=== PATIENT | male | born 1945 | race Caucasian/White ===

== ENCOUNTER → 2016-02-15 17:44 | Outpatient (CLI) | payer MEDICARE, OTHER ==
[2015-12-06 10:06] VITALS: BMI 36.5
[~2016-02-15 17:44] MED LIST: ADVAIR 250/501 DISK INH; AMBIEN10 MG PO; BAYER CHEWABLE81 MG PO; BENICAR40 MG PO; BIAXIN 500 MG500 MG PO; BROVANA15 MCG/2 M INH; BUMEX 1 MG TAB1 MG PO; CARAFATE1 G PO; CELEXA20 MG PO; COLACE100 MG PO; DIOVAN80 MG PO; DUONEB 2.5-0.5 M3 ML UPD; EXFORGE HCT 101 EAC2 PO; FERROUS SULFAT325 MG PO; GABAPENTIN100 MG PO; HYDROCHLOROTH12.5 M1 PO; HYDROCODON-ACE1 EAC7 PO; IPRAT-ALBUT 0.5-3 ML UPD; K-DUR20 MEQ PO; K-TAB10 MEQ PO; LASIX20 MG PO; LIBRAX CAPSULE1 CAP PO; MIRALAX17 GM PO; MUCINEX DM ER1 EAC1 PO; NITRO-DUR0.4 MG SL; NITROSTAT0.4 MG SL; NORVASC10 MG PO; NYSTATIN ORAL SU5 ML PO; OS-CAL500 MG PO; PLAVIX75 MG; PLAVIX75 MG PO; PLETAL100 MG; PREDNISONE20 MG PO; PROCARDIA XL60 MG PO; PROTONIX40 MG; PROTONIX40 MG PO; PULMICORT0.5 MG/21 UPD; REQUIP5 MG PO; REVATIO20 MG PO; SEROQUEL25 MG PO; TRIBENZOR 20-51 EACH PO; TRIBENZOR 40-11 EACH PO; TUSSIONEX 5 ML S5 ML PO; ZOCOR20 MG PO; ZYLOPRIM300 MG PO
[2016-02-15 19:45] LABS: BASOPHILS 0.3 % (0.0-2.0); EOSINOPHILS 2.7 % (0-7); HEMATOCRIT 30.4 % (42.0-54.0); IMMATURE GRANULOCYTES 0.4 % (0-5); LYMPHOCYTES 10.2 % (15-50); MCH 25.1 pg (26.0-34.0); MCHC 29.6 g/dL (31.0-37.0); MCV 84.7 fL (80.0-100.0); MEAN PLATELET VOLUME 9.6 fL (7.4-10.4); MONOCYTES 8.5 % (2-11); NEUTROPHILS 77.9 % (40-80); PLATELET COUNT 243 10x3/uL (130-400); RBC 3.59 10x6/uL (4.20-6.10); RDW 15.4 % (11.5-14.5); WBC 7.5 10x3/uL (4.8-10.8)
[2016-02-15 19:57] LABS: CALCIUM 9.2 mg/dL (8.5-10.1); CARBON DIOXIDE 25.9 mmol/L (21.0-32.0); CREATININE - SERUM 1.4 mg/dL (0.6-1.3); POTASSIUM - SERUM 4.9 mmol/L (3.5-5.1)
== END | disposition home or self-care (01) ==
LOC: D.LABREF 17:44
PROVIDERS: Internal Medicine Interventional Cardiology
DX: I25.119 Atherosclerotic heart disease of native coronary artery with unspecified angina pectoris (principal)

== ENCOUNTER 2016-02-18 08:23 | Outpatient (CLI) | payer MEDICARE, OTHER ==
[~2016-02-18] VITALS: Ht 172.7 cm; Wt 105.9 kg
--- NOTE | ~2016-02-18 | HEMODYNAMI ---
PATIENT:HÉCTOR GRAY MEDICAL RECORD: [id number] : 41 LOCATION:[facility] ADMISSION DATE: 02/18/16 Generatedon:02/18/201614:45 Patient name: HÉCTOR GRAY Patient #: [id number] : 1945 Date of study: 02/18/2016 Page: Of Hemodynamic Procedure Report Patient Data Patient Demographics Procedure consent was obtained First Name: HÉCTOR Gender: Male Last Name: ISAAC : 1945 Middle Initial: GISSELL Age: 71 year(s) Patient #: [id number] Race: SSN: [id number] Additional ID: [id number] Contact details Address: [address] [place] [address] State: [place] City: [place] Zip code: [address] Past Medical History History of disease Date Diagnosis Comments CAD PVD Allergies Allergen Reaction Date Comments Reported Other allergy 12/10/2014 KEFLEX,PROCARDIA Other allergy 11/29/2015 KEFLEX, PROCARDIA Other allergy 12/06/2015 Keflex, Procardia Other allergy 02/18/2016 Keflex, Procardia Admission Admission Data Admission Date: 02/18/2016 Admission Time: 8:23 Arrival Date: 02/18/2016 Arrival Time: 0:00 Insurance Payor: Medicare, Private health insurance Height (in.): 68 BSA: 2.18 (m2) Height (cm.): 172.72 BMI: 35.43 (kg/m2) Weight (lbs.): 233 Weight (kg.): 105.69 Lab Results Lab Result Date: 02/18/2016 Lab Result Time: 0:00 Biochemistry Name Units Result Min Max BUN mg/dl 31 --(----)-* 7 18 Creatinine mg/dl 1.5 --(----)-* 0.6 1.3 CBC Name Units Result Min Max Hemoglobin g/dl 8.9 *-(----)-- 13.5 17.5 Procedure Procedure Types Cath Procedure Diagnostic Procedure [facility] w/Coronaries w/Grafts Procedure Description Procedure Date Procedure Date: 02/18/2016 Procedure Start Time: 14:26 Procedure End Time: 14:44 Procedure Staff Name Function Wayne Gatica MD Performing Physician Yovany Olmedo RT Scrub Carmita Aguilera RN Nurse Reynaldo Bhandari RT Professor Of Religious Studies Grace Leong RT Monitor Procedure Data Cath Procedure Fluoroscopy Diagnostic fluoroscopy Total fluoroscopy dose: 818 dose: 818 mGy mGy Contrast Material Contrast Material Type Amount (ml) Isovue 300 80 Entry Location Entry Primary Successful Side Size Upsize Upsize Entry Closure Succes sful Closure Location (Fr) 1 (Fr) 2 (Fr) Remarks Device Remarks Femoral Right 5 Fr Vascade artery Closure System Estimated blood loss: 10 ml Diagnostic catheters Device Type Used For End Catheter Placement Cordis 5Fr JL 4.0 Left Coronary Catheter (MP) Angiography Cordis 5Fr Pigtail LV Angiography Catheter (MP) Cordis Infinity 5Fr AR 2 SVG Angiography MOD catheter Cordis Infinity 5Fr MPA-2 SVG Angiography catheter Procedure Complications No complications Procedure Medications Medication Administration Route Dosage Oxygen NC 2 l/min Lidocaine 2% added to field 20 Heparin Flush Bag added to field 2 bags (1000units/500ml NS) Benadryl I.V. 50 mg Versed I.V. 1 mg Fentanyl I.V. 50 mcg Fentanyl I.V. 25 mcg Versed I.V. 0.5 mg Hemodynamics Rest BSA: 2.18 (m2) HGB: 8.9 (g/dl) O2 Consumption: Estimated: 248.81 (ml/min) O2 Con sumption indexed: Estimated:114.13 (ml/min/m) Heart Rate: 67 (bpm) Snapshots Pre Cath Intra NCS Post Cath Vital Signs Time Heart Resp SPO2 NIBP (mmHg) Rhythm Pain Sedation Rate (ipm) (%) Status Level (bpm) 13:48:12 69 15 96 142/63(107) NSR 0 (11) 10(A) , No pain 13:53:11 81 19 98 Measuring NSR 0 (11) 10(A) , No pain 13:53:54 60 18 98 138/67(117) NSR 0 (11) 10(A) , No pain 13:58:10 60 16 99 130/60(110) NSR 0 (11) 10(A) , No pain 14:02:30 60 18 98 130/57(106) NSR 0 (11) 10(A) , No pain 14:07:29 60 14 96 Measuring NSR 0 (11) 10(A) , No pain 14:07:31 58 14 95 140/60(109) NSR 0 (11) 10(A) , No pain 14:12:30 62 15 96 Measuring NSR 0 (11) 10(A) , No pain 14:12:33 60 15 96 125/67(98) NSR 0 (11) 10(A) , No pain 14:16:52 60 15 96 136/65(114) NSR 0 (11) 10(A) , No pain 14:21:13 62 16 96 131/65(114) NSR 0 (11) 10(A) , No pain 14:25:29 60 15 95 131/65(104) NSR 0 (11) 10(A) , No pain 14:29:47 61 13 96 137/62(106) NSR 0 (11) 9(A) , No pain 14:34:09 61 13 96 148/63(122) NSR 0 (11) 9(A) , No pain 14:39:08 69 15 96 Measuring NSR 0 (11) 9(A) , No pain 14:39:37 67 15 96 157/74(117) NSR 0 (11) 9(A) , No pain 14:43:06 73 16 96 158/66(103) NSR 0 (11) 9(A) , No pain Medications Time Medication Route Dose Verified Delivered Reason Notes Effec tiveness by by 13:51:30 Oxygen NC 2 Wayne Carmita Per l/min Gavi Aguilera RN physician 13:51:37 Lidocaine 2% added 20ml Wayne Black used for to vial Gavi Gatica MD procedure field 13:51:45 Heparin Flush added 2 Wayne Black used for Bag to bags Gaiv Gatica MD procedure (1000units/500ml field NS) 13:51:51 Benadryl I.V. 50 mg Wayne Carmita Per Gavi Aguilera RN physician 14:24:37 Fentanyl I.V. 50 Wayne Carmita for mcg Gavi Aguilera RN sedation 14:24:39 Versed I.V. 1 mg Wayne Carmita for Gavi Aguilera RN sedation 14:26:25 Fentanyl I.V. 25 Wayne Carmita for mcg Gavi Aguilera RN sedation 14:26:40 Versed I.V. 0.5 Wayne Carmita for mg Gavi Aguilera RN sedation Procedure Log Time Note 13:30:35 Reynaldo Bhandari RT(R) sent for patient. Start room use. 13:41:30 ACC Patient presents with Stable Angina CCS Anginal Class 3--Marked limitation of physical activity, angina occurs with ordinary activity.. 13:41:34 Diagnostic Cath status Elective 13:41:37 Time tracking: Regular hours 13:41:42 Plan of Care:Hemodynamics will remain stable., Cardiac rhythm will remain stable., Comfort level will be maintained., Respiratory function will remain adequate., Patient/ family verbilizes understanding of procedure., Procedure tolerated without complication., Recovers from procedure without complications.. 13:41:46 Patient received from Outpatients to [facility] 1 Alert and oriented. Tansferred to table in Supine position. 13:41:47 Warm blankets applied, and sonido hugger turned on for patient comfort. 13:41:48 Correct patient and procedure confirmed by team. 13:41:49 Signed procedure consent form obtained from patient. 13:41:50 ECG and BP/O2 sat monitors applied to patient. 13:46:59 Vital chart was started 13:47:04 Baseline sample Acquired. 13:47:11 Rhythm: paced 13:47:13 Full Disclosure recording started 13:47:43 H&P Date Dictated: 02/15/2016 Within 30 days and on chart., H&P Addendum completed by physician on day of procedure. (MUST COMPLETE FOR ALL OUTPATIENTS). 13:50:07 Family in waiting room. 13:50:09 Patient NPO since Midnight. 13:50:37 Patient allergic to Other allergyKeflex, Procardia 13:50:43 Is the patient allergic to Iodine/contrast media? No. 13:50:45 Was the patient premedicated? No 13:50:46 Is patient on blood thinner?Yes 13:50:54 ACC The patient was administered the following blood thiners within the last 24 hours: ACCPlavix 13:50:58 Patient diabetic? No. 13:51:29 Previous problem with sedation/anesthesia? Yes Sedated easily 13:51:30 Oxygen 2 l/min NC was given by Carmita Aguilera RN; Per physician; 13:51:32 Snore? Yes 13:51:34 Sleep apnea? Yes 13:51:37 Lidocaine 2% 20ml vial added to field was given by Wayne Gatica MD; used for procedure; 13:51:40 Airway obstruction? Yes COPD 13:51:45 Heparin Flush Bag (1000units/500ml NS) 2 bags added to field was given by Wayne Gatica MD; used for procedure; 13:51:47 Dentures? No ? 13:51:51 Benadryl 50 mg I.V. was given by Carmita Aguilera RN; Per physician; 13:52:19 Patient pain scale 0/10 ?. 13:52:51 Lab results completed and on chart. 13:58:08 Right groin area was prepped with chlora-prep and draped in sterile fashion 13:58:09 Alarms reviewed by R. N. 13:58:10 Sharps counted by scrub and verified by R.N. 13:58:12 Physician paged 14:09:45 Use device set Femoral Dx 14:10:00 Acist Syringe opened to sterile field. 14:10:00 Bag Decanter opened to sterile field. 14:10:01 Cardinal Cath Pack opened to sterile field. 14:10:03 Terumo 5Fr Vivian Sheath opened to sterile field. 14:10:03 St Fadi 260cm J .035 wire opened to sterile field. 14:10:11 Acist Hand Control opened to sterile field. 14:10:12 Acist Manifold opened to sterile field. 14:10:13 Cordis Infinity 5Fr Multipack catheter opened to sterile field. 14:10:14 Tegaderm 4 x 4 opened to sterile field. 14:15:19 Zero performed for pressure channel P1 14:15:24 Zero performed for pressure channel P1 14:20:13 Patient Height : 172.72 cm 14:20:25 Patient Weight : 105.69 kg 14:20:37 Insurance Payor : Private health insurance, Medicare 14:20:43 Arrival Date: 02/18/2016 12:00:00 AM 14:21:31 Lab Result : BUN 31 mg/dl : Lab Result : Hemoglobin 8.9 g/dl :: Lab Result : Creatinine 1.5 mg/dl :: Physician arrived 14:: --------ALL STOP TIME OUT------ 14::32 Final Timeout: patient, procedure, and site verified with staff and physician. All members of the team are in agreement. 14::35 Right groin site verified by team. 14::37 Fentanyl 50 mcg I.V. was given by Carmita Aguilera RN; for sedation; 14::38 Physical assessment completed. ASA score P 2 - A patient with mild systemic disease as per Wayne Gatica MD. 14::39 Versed 1 mg I.V. was given by Carmita Aguilera RN; for sedation; 14:24:42 Sedation plan: IV Moderate Sedation Versed, Fentanyl 14:24:48 Procedure started. 14:26:25 Fentanyl 25 mcg I.V. was given by Carmita Aguilera RN; for sedation; 14::40 Versed 0.5 mg I.V. was given by Carmita Aguilera RN; for sedation; 14::49 Local anesthetic to right femoral artery with Lidocaine 2% by Wayne Gatica MD.INITIAL ACCESS ONLY 14:27:03 A 5 Fr sheath was inserted into the Right Femoral artery 14:28:26 Maxwell Bonaverde AMPLATZ Super stiff 260 3MM J guidewir opened to sterile field. 14:28:35 Amplatz wire advanced. 14:30:26 A Cordis 5Fr JL 4.0 Catheter (MP) was advanced over the wire and used for Left Coronary Angiography. 14:30:50 Catheter removed. 14:31:55 A Cordis 5Fr Pigtail Catheter (MP) was advanced over the wire and used for LV Angiography. 14:32:10 LV hemodynamics recorded. 14:32:36 LV Function : Abnormal 14:32:45 EF : 40 % 14:32:51 Catheter removed. 14:36:11 A Cordis Infinity 5Fr AR 2 MOD catheter was advanced over the wire and used for SVG Angiography.LAD 14:36:13 Catheter removed. 14:39:02 A Cordis Infinity 5Fr MPA-2 catheter was advanced over the wire and used for SVG Angiography.to RCA 14:39:25 Vascade 5Fr Closure Device opened to sterile field. 14:40:46 Sheath removed intact; hemostasis achieved with Vascade Closure System to the Right Femoral artery. 14:40:49 Procedure ended.(Physican Out) 14:41:11 Flurop Dose total: 818 14:41:11 Fluoroscopy dose: 818 mGy 14:41:16 Contrast amount:Isovue 300 80ml. 14:41:22 Sharps counted by scrub and verified by R.N. 14:41:26 Insertion/operative site no bleeding no hematoma. 14:41:30 Post-op/insertion site Right Femoral artery dressed using a 4 x 4 and Tegaderm. 14:41:34 Post right femoral artery:stable 14:41:36 Post Procedure Pulses reassessed and unchanged 14:41:45 Post-procedure physical assessment completed. ASA score P 2 - A patient with mild systemic disease as per Wayne Gatica MD. 14:41:50 Post procedure rhythm: unchanged. 14:41:53 Estimated blood loss: 10 ml 14:41:55 Post procedure instruction explained to patient.Patient verbalizes understanding. 14:42:10 Procedure and supply charges have been captured, reviewed, submitted and are correct. 14:42:52 St Fadi Femstop Arch Gold opened to sterile field. 14:43:16 Procedure Complication : No complications 14:43:22 Vital chart was stopped 14:43:24 See physician's report for complete and final results. 14:43:53 Report given to Outpatients. 14:43:59 Patient transfered to Post Procedure Room with Stretcher. 14:44:03 Procedure ended. 14:44:03 Full Disclosure recording stopped 14:44:12 End room use (Document Last) 14:45:26 Fem stop was placed because he would not hold his leg still. Device Usage Item Name Manufacture Quantity Catalog Number Hospital Part Current Minimal Lot# / Charge Number Stock Stock Serial# Code Acist Acist 1 18431 930790 866811 095959 20 Syringe Medical Systems Inc Bag Microtek 1 2002S 414770 26136 920704 5 Pneuma[employer] Inc. Cardinal Cardinal [address] 345091 36378 860270 5 [facility] 1 UCM049 555450 265628 750866 [address] St Fadi 1 343725 785384 454306 775920 30 260cm J .035 wire Acist Acist 1 69152 533978 070515 230016 5 Hand Medical Control Systems Inc Acist Acist 1 72352 200275 308132 812117 5 Manifold Medical Systems Inc Cordis Cardinal 1 NP7136 100392 60956 296929 30 Advebsity Health 5Fr Multipack catheter Tegaderm 3M 1 1626W 098819 367755 076524 5 4 x 4 Maxwell Maxwell 1 [id number] 563916 149011 5 Bonaverde Scientific AMPLATZ Super stiff 260 3MM J guidewir Cordis Cardinal 1 804574 5 5Fr JL Health 4.0 Catheter (MP) Cordis Cardinal 1 783775 5 5Fr Health Pigtail Catheter (MP) Cordis Cardinal 1 [id number] 796384 075451 519302 20 Nitero 5Fr AR 2 MOD catheter Cordis Cardinal 1 [id number] 158140 420403 842606 5 Advebsity CircleBuilder 5Fr MPA-2 catheter Vascade Cardiva 1 [id number] 447627 32907 484275 10 5Fr Medical, Closure Inc. Device St Fadi St Fadi 1 Z03912 642718 165350 427740 5 Femjose guadalupe Carver Gold Signature Audit [place] Stage Time Signature Unsigned Intra-Procedure 02/18/2016 Grace Leong 2:45:45 PM RT(R) Signatures Monitor : Grace Leong Signature : RT Date : Time : [facility] [address] [place] [address]
[~2016-02-18 08:23] MED LIST changes: -BROVANA15 MCG/2 M INH; -BUMEX 1 MG TAB1 MG PO; -DIOVAN80 MG PO; -K-TAB10 MEQ PO; -LIBRAX CAPSULE1 CAP PO; -MUCINEX DM ER1 EAC1 PO; -NYSTATIN ORAL SU5 ML PO; -OS-CAL500 MG PO; -PREDNISONE20 MG PO; -PULMICORT0.5 MG/21 UPD; -REVATIO20 MG PO
[2016-02-18 10:04] VITALS: BP 119/54; Ht 172.7 cm; Wt 105.9 kg
[2016-02-18 10:24] LABS: BASOPHILS 0.1 % (0.0-2.0); EOSINOPHILS 3.3 % (0-7); HEMOGLOBIN 8.9 g/dL (13.5-17.5); IMMATURE GRANULOCYTES 0.3 % (0-5); LYMPHOCYTES 10.1 % (15-50); MCH 25.2 pg (26.0-34.0); MCHC 29.7 g/dL (31.0-37.0); MEAN PLATELET VOLUME 9.3 fL (7.4-10.4); MONOCYTES 9.1 % (2-11); NEUTROPHILS 77.1 % (40-80); PLATELET COUNT 220 10x3/uL (130-400); RBC 3.53 10x6/uL (4.20-6.10); RDW 15.4 % (11.5-14.5); WBC 7.8 10x3/uL (4.8-10.8)
[2016-02-18 10:34] LABS: ANION GAP 15.7 mmol/L (8-16); CALCIUM 8.5 mg/dL (8.5-10.1); CARBON DIOXIDE 25.3 mmol/L (21.0-32.0); CREATININE - SERUM 1.5 mg/dL (0.6-1.3)
--- NOTE | 2016-02-18 15:09 | NUR ---
LYING FLAT, SLEEPING, NC 4L WHILE SLEEPING. NSR RATE 72 W NO C/O CHEST PAIN. PULSES PALP X 4. R GROIN 5F VASCADE C/D/I WITH FEMSTOP IN PLACE FOR PRECAUTION BECAUSE PATIENT WIGGLES IN SLEEP. FEMSTOP AT 100. GROIN C/D/I WITH NO HEMATOMA OR BLEEDING.
--- NOTE | 2016-02-18 15:10 | NUR ---
REPORT CALLED TO [facility].
--- NOTE | 2016-02-18 15:26 | NUR ---
1515 TRANSFERRED VIA STRETCHER TO [facility] ROOM 12. R GROIN REMAINS C/D/I WITH NO HEMATOMA OR BLEEDING. HENRIETTA YEBOAH AT BEDSIDE IN OPS.
--- NOTE | 2016-02-18 20:36 | NUR ---
1515 RT GROIN DRESSING C/D/I NO BLEEDING OR HEMATOMA PPX2 RT WEAK.
--- NOTE | 2016-02-18 20:44 | NUR ---
1720 FEM STOP OFF NO BLEEDING OR HEMATOMA PPX2.
--- NOTE | 2016-02-18 20:46 | NUR ---
1750 IV DCD CATHETERR INTACT DISCHARGE INSTRUCTIONS GIVEN.
--- NOTE | 2016-02-18 20:47 | NUR ---
1800 NO BLEEDING TO RT GROIN. TO HOME VIA W/C WITH .
--- NOTE | 2016-02-25 16:40 | OP ---
PATIENT NAME: HÉCTOR GRAY MEDICAL RECORD: [id number] :41 LOCATION:D.CAT ADMISSION DATE: SURGEON: MAGY TRIPP MD DATE OF OPERATION: 02/18/2016 PROCEDURES: 1. Left heart catheterization. 2. Selective coronary angiography. 3. Left ventriculogram. 4. Vein graft angiography. INDICATION: 1. Angina, shortness of breath, coronary artery disease, previous coronary bypass graft surgery. 2. Previous multivessel percutaneous transluminal coronary angioplasty stent. PROCEDURE IN DETAIL: After informed consent was obtained and after detailed explanation of risks, benefits as well as alternative therapies, the patient elected to proceed with angiogram and angioplasty. The right femoral area was prepped and draped in normal sterile fashion. Right femoral artery was cannulated via modified Seldinger technique with placement of 5-[place] sheath. All catheters exchanged through this sheath. FINDINGS: The left ventriculogram was performed in standard 30-degree ACUNA view, reveals mild global hypokinesis, ejection fraction estimated at 40% to 45%. SELECTIVE CORONARY ANGIOGRAPHY: 1. Left main. No significant angiographic disease. Previously placed stent is widely patent. 2. The LAD diagonal is widely patent. 3. Left anterior descending is then totally occluded. 4. Vein graft to the distal LAD is widely patent. 5. Left circumflex is totally occluded and is not grafted. 6. Right coronary vein graft is widely patent, previously placed stents are widely patent with no significant restenosis. No disease elsewise. OVERALL IMPRESSION: Wide patency of 2 grafts and wide patency of all the previously placed stents. Continue medical management of the coronary artery disease and cardiac risk factors. TRANSINT:[id number] Voice Confirmation ID: [id number] DOCUMENT ID: [id number] MAGY TRIPP MD at 1640 CC: [id number] DICTATION DATE: 02/18/16 1445 TURNAROUND ENGINEER: 02/18/162051 [facility] CLI 02/18/[address] [address]
== END 2016-02-18 18:00 | disposition home or self-care (01) ==
LOC: D.CATH 08:23
PROVIDERS: Internal Medicine Interventional Cardiology
DX: I25.119 Atherosclerotic heart disease of native coronary artery with unspecified angina pectoris (principal); Z95.1 Presence of aortocoronary bypass graft; Z95.5 Presence of coronary angioplasty implant and graft

== ENCOUNTER → 2016-03-08 14:47 | Outpatient (CLI) | payer MEDICARE, OTHER ==
[2016-02-18 10:04] VITALS: BMI 35.5
[~2016-03-08 14:47] MED LIST changes: +BENZONATATE200 MG PO; +BROVANA15 MCG/2 M INH; +BUMEX 1 MG TAB1 MG PO; +DIOVAN80 MG PO; +FLUTICASONE PRO16 GM NASAL; +HUMULIN R100 U/ML SC; +K-TAB10 MEQ PO; +LIBRAX CAPSULE1 CAP PO; +MUCINEX DM ER1 EAC1 PO; +NYSTATIN ORAL SU5 ML PO; +OS-CAL500 MG PO; +PREDNISONE10 MG PO; +PREDNISONE20 MG PO; +PULMICORT0.5 MG/21 UPD; +REVATIO20 MG PO
== END | disposition home or self-care (01) ==
LOC: D.LAB 14:47
DX: G47.33 Obstructive sleep apnea (adult) (pediatric) (principal); D72.829 Elevated white blood cell count, unspecified; G47.10 Hypersomnia, unspecified

== ENCOUNTER 2016-03-11 11:38 | Outpatient (CLI) | payer MEDICARE, OTHER ==
[~2016-03-11] VITALS: Ht 172.7 cm; Wt 115.9 kg
[~2016-03-11 11:38] MED LIST changes: -BENZONATATE200 MG PO; -BROVANA15 MCG/2 M INH; -BUMEX 1 MG TAB1 MG PO; -DIOVAN80 MG PO; -FLUTICASONE PRO16 GM NASAL; -HUMULIN R100 U/ML SC; -K-TAB10 MEQ PO; -LIBRAX CAPSULE1 CAP PO; -MUCINEX DM ER1 EAC1 PO; -NYSTATIN ORAL SU5 ML PO; -OS-CAL500 MG PO; -PREDNISONE10 MG PO; -PREDNISONE20 MG PO; -PULMICORT0.5 MG/21 UPD; -REVATIO20 MG PO
[2016-03-11 12:01] VITALS: BP 126/46; Ht 172.7 cm; Wt 115.9 kg
--- NOTE | 2016-03-11 12:05 | NUR ---
PATIENT AMBULATED TO ROOM 2110 AT 1155. PATIENT HERE ON OUTPATIENT BASIS. PATIENT HERE TO RECEIVE 2 UNITS PRBCS AND THEN DISCHARGE TO HOME. AMBULATORY, RESP EVEN AND UNLABORED. NO DISTRESS.
[2016-03-11 12:35] LABS: ANION GAP 11.2 mmol/L (8-16); CALCIUM 8.5 mg/dL (8.5-10.1); CARBON DIOXIDE 29.3 mmol/L (21.0-32.0); CREATININE - SERUM 1.5 mg/dL (0.6-1.3); POTASSIUM - SERUM 4.5 mmol/L (3.5-5.1)
--- NOTE | 2016-03-11 13:04 | NUR ---
22 GAUGE IV PLACED TO LEFT FOREARM X 1 STICK, GOOD BLOOD RETURN, EASY FLUSH. TAPED, DATED AND SECURED. PATIENT TOLERATED IV PLACEMENT WELL. NO DISTRESS.
--- NOTE | 2016-03-11 13:56 | NUR ---
UNIT #1 PRBC'S ADMINISTRATION STARTED AT 1350. PATIENT RESTING ON BED. RESP EVEN AND UNLABORED. PATIENT STATES HE FEELS FINE. NO S/S OF BLOOD TRANSFUSION REACTION NOTED AT THIS TIME. NO DISTRESS. CALL LIGHT WITHIN REACH.
[2016-03-11 15:09] VITALS: BP 99/63
--- NOTE | 2016-03-11 16:01 | NUR ---
RESTING IN BED, CONTINUES TO TOLERATE BLOOD TRANSFUSION AT THIS TIME. CALL LIGHT WITHIN REACH. NO S/S TRANSFUSION REACTION.
--- NOTE | 2016-03-11 16:40 | NUR ---
1620 2ND UNIT OF PRBC'S TRANSFUSING. NO S/S BLOOD TRANSFUSION AT THIS TIME. PATIENT RESTING ON HIS LEFT LATERAL SIDE. CALL LIGHT WITHIN REACH. NO DISTRESS.
--- NOTE | 2016-03-11 19:39 | NUR ---
ENTERED PT ROOM TO ADMINISTER MEDICATION. PT REFUSED. PT STATED THAT HE WAS LEAVING SOON BLOOD TRANSFUSION WAS FINISHED. INFORMED PT THAT HE WOULD HAVE TO WAIT AN HOUR POST TRANSFUSION FOR VITAL SIGNS. PT BECAME UPSET AND STATED THAT HE WASNT GOING TO WAIT. INFORMED PT THAT IF HE DIDNT WAIT FOR POST TRANSFUSION VITALS HE WOULD BE DISCHARGED AMA.
--- NOTE | 2016-03-11 20:17 | NUR ---
BLOOD INFUSION COMPLETED, MARYJO WELL, NO S/S OF ADVERSE REACTIONS NOTED AT THIS TIME. ALERT AND ORIENTED X3, RESP UNLAB.DRESSED WAITING TO BE DISCHARGED WHEN ABLE TO GO HOME. C/L IN REACH.
--- NOTE | 2016-03-11 20:27 | NUR ---
PT GUEST IN XIONG INTERUPTING PT CARE FOR ANOTHER PT. ASKED WHY PT HAS TO STAY 1 HOUR PAST TRANSFUSION COMPLETION. EXPLAINED TO PT GUEST THAT VITAL SIGNS NEED TO BE CHECKED 1 HOUR POST TRANSFUSION TO ENSURE PT DOES NOT HAVE A DELAYED REACTION TO BLOOD PRODUCT. GUEST THEN INQUIRED IF THIS WAS A JOINT COMMISION REGULATION. INFORMED GUEST THAT THIS WAS INFACT A HOSPITAL REGULATION. GUEST SAID NOTHING IN RESPONSE TO THIS AND WALKED INTO PT ROOM. GUEST WAS OVERHEARD STATING ABOUT NURSE "HES A SMART ASS". PT WAS HEARD AGREEING. CARROT BUNCHER WALKING PAST IN XION[facility] WAY. CARROT BUNCHER SENT INTO PT ROOM.
--- NOTE | 2016-03-11 20:41 | NUR ---
iv cath REMOVED W/O DIFF. INTACT. BANDAID APPLIED. MARYJO WELL. C/L IN REACH.
--- NOTE | 2016-03-11 21:03 | NUR ---
D/C'D TO HOME VIA PRIVATE CAR AND FAMILY. NO S/S OF ADVERSE REACTIONS NOTED.
== END 2016-03-11 21:08 | disposition home or self-care (01) ==
LOC: D.M2 11:38 → D.OPS 11:38
PROVIDERS: Family Medicine
DX: D64.9 Anemia, unspecified (principal)

== ENCOUNTER 2016-04-12 17:47 | Inpatient (IN) | payer MEDICARE, OTHER ==
[~2016-04-12] VITALS: Ht 172.7 cm; Wt 109.4 kg
--- NOTE | 2016-04-12 19:00 | NUR ---
PT SITTING IN ROOM, DIRECT ADMIT FROM DR THURSTON'S OFFICE. INITIAL ASSESSMENT COMPLETED, VSS, AFEBRILE. RESP EVEN AND UNLABORED. O2 2LPM NC, STATES WEARING O2 AT HOME. MEDICATIONS RECONCILED AT THE BEDSIDE. CALL LIGHT PLACED WITHIN REACH. WILL MONITOR.
--- NOTE | 2016-04-12 19:37 | NUR ---
PT SIGNS INFORMED CONSENT FOR BLOOD PRODUCTS DURING HOSPITAL STAY AT THIS TIME.
--- NOTE | 2016-04-12 20:30 | NUR ---
MULTIPLE ATTEMPTS TO TRY AND OBTAIN IV ACCESS BY MULTIPLE NURSES WITHOUT SUCCESS. CALL TO DR THURSTON, RETURNS CALL. ORDERS SURGICAL CONSULT FOR CVL PLACEMENT TONIGHT SO PT CAN HAVE BLOOD TRANSFUSION INITIATED. PT AND PT'S SPOUSE UPDATED ON POC AND THEY VERBALIZED UNDERSTANDING.
--- NOTE | 2016-04-12 21:10 | NUR ---
DR MCKEON RETURNS CALL. STATES WILL BE HERE IN 15 MINUTES TO DO CVL PLACEMENT. PT AND HIS SPOUSE UPDATED ON PT POC.
--- NOTE | 2016-04-12 21:23 | NUR ---
PT SIGNS INFORMED CONSENT FOR CVL PLACEMENT BY DR MCKEON. ALL QUESTIONS ANSWERED BY DR MCKEON.
--- NOTE | 2016-04-12 21:50 | NUR ---
DR MCKEON ON FLOOR, PLACES RIGHT SUBCLAVIAN TL TO PT'S CHEST WALL AT THE BEDSIDE. PT TOLERATED FAIRLY. ORDER PLACED BY DR MCKEON FOR CXR TO CONFIRM PLACEMENT. AWAITING RADIOLOGY TO ARRIVE.
[2016-04-12 22:07] VITALS: BP 142/48
--- NOTE | 2016-04-12 22:26 | NUR ---
SPOKE WITH DES IN RADIOLOGY. STATES CXR SHOWS CVL IN GOOD POSITION AND IT IS OK TO USE. PT AND HIS SPOUSE UPDATED ON POC. WILL PREPARE FOR BLOOD TRANSFUSION.
[2016-04-12 23:15] VITALS: BMI 40.0
[2016-04-13 01:57] VITALS: BP 101/42
--- NOTE | 2016-04-13 05:24 | NUR ---
PT HAS RECEIVED 2 UNITS PRBC'S THIS SHIFT WITHOUT ADVERSE REACTION NOTED. SPOUSE HAS REMAINED AT THE BEDSIDE THROUGHOUT THE NIGHT. SEE BLOOD TRANSFUSION RECORD FOR FURTHER DETAILS.
[2016-04-13 05:26] VITALS: BP 142/63
--- NOTE | 2016-04-13 06:29 | CN ---
PATIENT NAME:HÉCTOR GRAY MEDICAL RECORD: [id number] : 41 LOCATION:D. D.2137 ADMIT DATE: 04/12/16 ACCOUNT: [id number] CONSULTING PHYSICIAN: FUNMILAYO MCKEON MD REFERRING PHYSICIAN: YUNIER THURSTON MD DATE OF CONSULTATION: 04/12/2016 SURGEON: Funmilayo Mckeon MD. PREOPERATIVE DIAGNOSES: 1. Anemia. 2. Peripheral IV access insufficiency. POSTOPERATIVE DIAGNOSES: 1. Anemia. 2. Peripheral IV access insufficiency. PROCEDURE PERFORMED: Right subclavian central venous line ANESTHESIA: Local. COMPLICATIONS: None. SPECIMENS: None. Case was clean. ESTIMATED BLOOD LOSS: 5 cc. OPERATIVE COURSE: After consent was obtained, the patient was placed in the supine position on his bed and his right chest and neck were prepped and draped in typical sterile fashion. Timeout was taken to confirm the correct patient and procedure. A 10 cc of local anesthetic was injected in the right chest wall. Right subclavian vein was cannulated on the first pass. A guidewire was placed through the needle in standard Seldinger fashion. The needle was removed. Skin incision was made with 11-blade scalpel. A dilator was then passed over the wire in a standard Seldinger fashion. A triple lumen catheter was then passed to the wire in a standard Seldinger fashion. A Biopatch was placed. It was secured to the skin with 2-0 silk suture and a sterile Tegaderm dressing. All 3 ports were aspirated and flushed. At the end of the case, all needle and instrument counts were correct. No complications occurred and immediate postoperative chest x-ray was performed. TRANSINT:[id number] Voice Confirmation ID: [id number] DOCUMENT ID: [id number] FUNMILAYO MCKEON MD at 0629 CC: [id number] DICTATION DATE: 04/12/162155 SECTION SUPERVISOR: 04/13/16 [address] [place] [address]
--- NOTE | 2016-04-13 06:29 | CN ---
PATIENT NAME:HÉCTOR GRAY MEDICAL RECORD: [id number] : 41 LOCATION:D. D.2137 ADMIT DATE: 04/12/16 ACCOUNT: [id number] CONSULTING PHYSICIAN: FUNMILAYO MCKEON MD REFERRING PHYSICIAN: YUNIER THURSTON MD DATE OF CONSULTATION: 04/12/2016 Surgical Consultation SURGEON: Funmilayo Mckeon MD CHIEF COMPLAINT: Abdominal pain. HISTORY OF PRESENT ILLNESS: This is a 71-year-old male, who was admitted to the hospital early this evening for chronic gastrointestinal bleeding as well as sharp left upper quadrant pain. The patient denies any nausea or vomiting. The patient denies being on any melanotic stool and denies any hematemesis or hematochezia. He does have a history of COPD and coronary artery disease. He is due for a colonoscopy. He has pain with deep breath. He describes the pain as dull and throbbing in the left lower upper quadrant. It fluctuates in intensity. PAST MEDICAL HISTORY: COPD, coronary artery disease, chronic anemia, pacemaker, sleep apnea. PAST SURGICAL HISTORY: Pacemaker, coronary artery bypass, cataract surgery. ALLERGIES: CEPHALEXIN, NIFEDIPINE. MEDICATIONS: Neurontin, Seroquel, Requip, amlodipine, valsartan, citalopram, Plavix, nitroglycerin. SOCIAL HISTORY: Denies any history of alcohol abuse. He is currently a nonsmoker. FAMILY HISTORY: Denies any family history of coronary artery disease or diabetes. REVIEW OF SYSTEMS: A 12-point review of systems was obtained, pertinent positive and negative as per the HPI. PHYSICAL EXAMINATION: VITAL SIGNS: Stable. He is afebrile. GENERAL: Well-developed, well-nourished male, in mild distress. PSYCHIATRIC: He is alert and oriented times 3. EYES: Extraocular muscles are intact. EAR, NOSE, AND THROAT: Normal dentition. CARDIOVASCULAR: Normal sinus rhythm. Pacemaker in the left chest wall. PULMONARY: He has got decreased breath sounds bilaterally. ABDOMEN: Soft, mildly distended. He has got tenderness to palpation diffusely. No guarding. No rebound. No peritoneal signs. No hernia defects. SKIN: Warm and dry with normal turgor. EXTREMITIES: A 2+ pulses with lower extremity edema. NEUROLOGIC: He has a GCS of 15 with no focal deficits. CONSULT REPORT [id number] HÉCTOR GRAY LABORATORY DATA: The patient has no labs for this admission. All lab work is pending at the primary care physician's office. His hemoglobin was 7.7. His creatinine was 1.9. No other lab work available at this time. IMAGING: No imaging available. IMPRESSION: This is a 71-year-old male with chronic anemia, abdominal pain, peripheral IV access insufficiency. PLAN: The patient is scheduled to receive transfusion of packed red blood cells this evening. He has no IV access whatsoever. We will place a central line. Consent was obtained. Risks and benefits discussed with the patient and spouse for subclavian central venous line. TRANSINT:[id number] Voice Confirmation ID: [id number] DOCUMENT ID: [id number] FUNMILAYO MCKEON MD at 0629 CC: [id number] DICTATION DATE: 04/12/16 215 MARINE SUPERINTENDENT: 04/13/16 0056 ADM IN [place] [id number] [place] [address]
[2016-04-13 06:48] LABS: BASOPHILS 0.4 % (0.0-2.0); EOSINOPHILS 3.1 % (0-7); HEMATOCRIT 31.1 % (42.0-54.0); HEMOGLOBIN 9.3 g/dL (13.5-17.5); IMMATURE GRANULOCYTES 1.4 % (0-5); MCH 24.3 pg (26.0-34.0); MCHC 29.9 g/dL (31.0-37.0); MCV 81.4 fL (80.0-100.0); MEAN PLATELET VOLUME 8.8 fL (7.4-10.4); MONOCYTES 6.7 % (2-11); NEUTROPHILS 79.4 % (40-80); PLATELET COUNT 197 10x3/uL (130-400); RBC 3.82 10x6/uL (4.20-6.10); RDW 17.8 % (11.5-14.5); WBC 7.6 10x3/uL (4.8-10.8)
[2016-04-13 07:20] LABS: ALBUMIN 3.4 g/dL (3.4-5.0); ANION GAP 12.6 mmol/L (8-16); BILIRUBIN - TOTAL 0.51 mg/dL (0.2-1.3); CALCIUM 8.7 mg/dL (8.5-10.1); CARBON DIOXIDE 25.2 mmol/L (21.0-32.0); CREATININE - SERUM 1.9 mg/dL (0.6-1.3); POTASSIUM - SERUM 4.8 mmol/L (3.5-5.1); PROTEIN - SERUM 6.8 g/dL (6.4-8.2)
--- NOTE | 2016-04-13 07:30 | NUR ---
RECEIVED PT REPORT. NO OTHER NEEDS AT THIS TIME. WILL CONTINUE PLAN OF CARE.
[2016-04-13 08:19] VITALS: BP 145/51
--- NOTE | 2016-04-13 11:11 | NUR ---
SCD'S ON BILATERAL LE
--- NOTE | 2016-04-13 11:57 | NUR ---
PT IS ALERT. ASSESSMENT DONE PER FLOWSHEET. NO OTHER NEEDS AT THIS TIME. WILL CONTINUE TO MONTIOR.
[2016-04-13 12:19] VITALS: Ht 172.7 cm; Wt 109.4 kg
[2016-04-13 12:20] VITALS: BP 125/65
--- NOTE | 2016-04-13 15:38 | NUR ---
PT IS ALERT. NO SS OF DISTRESS AT THIS TIME. WILL CONTINUE TO MONITOR.
[2016-04-13 16:17] VITALS: BP 148/53
--- NOTE | 2016-04-13 19:35 | NUR ---
RESUMED CARE OF PT, R-CVL, ON BIPAP, FAMILY AT BEDSIDE, CALL LIGHT IN REACH, BED IS LOW, SRX2, WILL CONTINUE TO MONITOR,
[2016-04-13 20:00] VITALS: BP 141/60
[2016-04-14] VITALS: BP 132/57
--- NOTE | 2016-04-14 03:36 | NUR ---
EDUCATIONAL SIGN LANGUAGE INTERPRETER AT BEDSIDE TO OBTAIN VITALS, CALL LIGHT IN REACH. WILL CONTINUE WITH PLAN OF CARE.
[2016-04-14 04:00] VITALS: BP 123/45
--- NOTE | 2016-04-14 04:45 | NUR ---
SLEEPING, BIPAP ON, AT BEDSIDE, SCD ARE ON, CALL LIGHT IN REACH, WILL CONTINUE TO MONITOR
[2016-04-14 06:01] LABS: BASOPHILS 0.2 % (0.0-2.0); EOSINOPHILS 3.1 % (0-7); HEMATOCRIT 31.3 % (42.0-54.0); HEMOGLOBIN 9.5 g/dL (13.5-17.5); IMMATURE GRANULOCYTES 0.6 % (0-5); LYMPHOCYTES 10.7 % (15-50); MCH 24.7 pg (26.0-34.0); MCHC 30.4 g/dL (31.0-37.0); MCV 81.3 fL (80.0-100.0); MONOCYTES 9.7 % (2-11); NEUTROPHILS 75.7 % (40-80); PLATELET COUNT 188 10x3/uL (130-400); RBC 3.85 10x6/uL (4.20-6.10); RDW 17.8 % (11.5-14.5); WBC 6.4 10x3/uL (4.8-10.8)
[2016-04-14 06:47] LABS: ANION GAP 12.6 mmol/L (8-16); CARBON DIOXIDE 27.3 mmol/L (21.0-32.0); CREATININE - SERUM 1.9 mg/dL (0.6-1.3); POTASSIUM - SERUM 4.9 mmol/L (3.5-5.1); THYROID STIMULATING HORMONE 0.75 uIU/mL (0.36-3.74)
--- NOTE | 2016-04-14 07:56 | NUR ---
AM ROUNDING DONE WITH CITY DISPATCH SUPERVISOR NURSE. AT BEDSIDE. PATIENT HAS BIPAP IN USE. RIGHT CVL SALINE LOCK, WITH DATE 04/12/16 SEEN. ON HEART MONITOR SHOWING PACED/SR, HR 68. BOX ALARM IS IN USE CORRECTLY. WILL PLACE NON SKID SOCKS ON PATIENT. PATIENT IS TO RECEIVE ONE UNIT OF BLOOD TODAY. WILL MONITOR.
[2016-04-14 09:52] VITALS: BP 123/67
[2016-04-14 13:19] VITALS: BP 105/42
--- NOTE | 2016-04-14 13:57 | NUR ---
PLACED ON BIPAP, UNIT OF BLOOD SLOWLY STARTING TO TRANSFUSE AT 125 CC/HR TO RIGHT CVL. WILL MONITOR.
--- NOTE | 2016-04-14 15:27 | NUR ---
CALLED L[facility]ARD IN PHARMACY TO RE-TIME VIBRAMYACIN AND SOLU-MEDROL BLOOD IS INFUSING.
--- NOTE | 2016-04-14 16:08 | NUR ---
BLOOD FINISHED. DENIES ANY PROBLEMS WITH IT. ON BIPAP. WILL CONTINUE TO MONITOR.
[2016-04-14 16:38] VITALS: BP 159/59
--- NOTE | 2016-04-14 16:57 | NUR ---
Patient Name: HÉCTOR GRAY Admission Status: Elective Accout number: [id number] Admission Date: 04-12-2016 : 1945 Admission Diagnosis:GASTROINTESTINAL HEMORRHAGE, UNSPECIFIED Attending: ARRON Current LOS: 2 Anticipated DC Date: Planned Disposition: Primary Insurance: MEDICARE A & B Discharge Planning Comments: CM ATTEMPTED TO MEET WITH PT FOR INITIAL ASSESSMENT OF DISCHARGE NEEDS. PT WAS SLEEPING AT APPROXIMATELY 1530 HOURS. CM AWAKENED PT AND ATTEMPTED TO SPEAK TO PT AGAIN AT APPROXIMATELY 1615 HOURS, PT ASKED CM TO COME BACK LATER. CM TO ATTEMPT ASSESSMENT OF PT AT A LATER TIME. Plumber'S Assistant: Gilles Pascual
--- NOTE | 2016-04-14 17:37 | NUR ---
IV STEROIDS GIVEN ORDERED. SITTING ON SIDE OF BED EATING SUPPER. DENIES NEEDS. O2 AT 5L PER NC ON. WILL CONTINUE TO MONITOR.
--- NOTE | 2016-04-14 18:00 | CN ---
PATIENT NAME:HÉCTOR GRAY MEDICAL RECORD: [id number] : 41 LOCATION:D. D.2137 ADMIT DATE: 04/12/16 ACCOUNT: [id number] CONSULTING PHYSICIAN: TE ROB MD REFERRING PHYSICIAN: YUNIER THURSTON MD DATE OF CONSULTATION: 04/13/2016 REFERRING PHYSICIAN: Yunier Thurston MD. HISTORY OF PRESENT ILLNESS: The patient is a 71-year-old white male, who basically was admitted with intermittent left upper quadrant/left side of the abdominal pain. It is sharp and fleeting, and more lateral than anywhere else. He denies any nausea or vomiting or recurrent bleeding. I have seen this man for a couple of reasons in the past . He has had chronic gastric ulcer bleeding from an antral ulcer that is was NSAID induced for several years. It finally healed up after I convinced him to stop his Aleve use back in 2013. He has not had a problem with GI bleeding since then. He also has had an episode of ischemic colitis back in February 2004 noted on colonoscopy. He also had some internal hemorrhoids, but otherwise exam was normal. PAST MEDICAL HISTORY: Remarkable for a rather severe COPD, on ____. He also has coronary artery disease. He has hypertension, cardiac arrhythmias, status post pacer. He has PTCA with stent placement. He has had 4-vessel CABG in the late . He has had prostate cancer and pneumonia. He has also had lumbar spine surgery and radiation for prostate cancer. He had also had cataract surgery. ALLERGIES: PROCARDIA AND KEFLEX. HOME MEDICATIONS: Include Neurontin, Seroquel, Requip, Exforge, Celexa, Plavix and nitroglycerin. He claims he just started taking Aleve over the past week or so. FAMILY HISTORY: Negative for GI disease. SOCIAL HISTORY: The patient is negative for any alcohol use. REVIEW OF SYSTEMS: Noncontributory. PHYSICAL EXAMINATION: GENERAL: Reveals a chronically ill-appearing white male in mild to moderate respiratory distress. VITAL SIGNS: Stable. He is afebrile. CHEST: Clear anteriorly. HEART: Revealed a regular rhythm. ABDOMEN: Fairly soft, but quite protuberant due to a reported 50-pound weight loss over the past 6-12 months. He has minimal tenderness present. EXTREMITIES: Reveal no edema. LABORATORY DATA: Reveals a white count of 7000, hematocrit of 31, MCV of 81, platelet count 197,000. Electrolytes are normal. BUN 39, creatinine 1.9. Liver enzymes are normal. He is acidotic with a pH of 7.261, pO2 of 57, pCO2 of 55. Chest x-ray revealed mild CHF. CT of the abdomen and pelvis reveals mild sigmoid diverticulosis, but otherwise negative exam. There are no signs of colitis present. CONSULT REPORT [id number] HÉCTOR GRAY IMPRESSION: 1. Intermittent left upper quadrant/left-sided abdominal pain that is sharp and fleeting of unclear etiology, but sounds more like a gas pain to me. Again, CT of the abdomen is completely negative. 2. Marked weight gain. 3. Remote history of ischemic colitis as noted above. This is due to obstipation issues. 4. History of chronic NSAID-induced gastric ulcer with bleeding, finally healed up in 2013, but high risk to occur with recurrent NSAID use. RECOMMENDATION: 1. Check KUB. 2. Check TSH. 3. Trial of Librax for now. 4. Needs to be on long-term PPI therapy as recommended to him multiple times in the past. 5. Once again, he needs to be encouraged to not take any NSAIDs at all including Aleve. TRANSINT:[id number] Voice Confirmation ID: [id number] DOCUMENT ID: [id number] TE ROB MD at 1800 CC: YUNIER THURSTON MD [id number] DICTATION DATE: 04/13/162002 FLUXER: 04/14/[address] [facility] [address] [place] [address]
--- NOTE | 2016-04-14 19:30 | NUR ---
RESUMED CARE OF PT, VISITING WITH FAMILY, MATY, TELEMTRY-70,02-5L, DENIES ANY NEEDS, CALL LIGHT IN REACH, WILL CONTINUE TO MONITOR
[2016-04-14 21:44] VITALS: BP 155/58
[2016-04-15 00:35] VITALS: BP 105/57
--- NOTE | 2016-04-15 03:11 | NUR ---
SITTING UP IN BED, WATCHING TV, DENIES ANY NEEDS, CALL LIGHT IN REACH
[2016-04-15 04:36] VITALS: BP 101/50
--- NOTE | 2016-04-15 07:00 | NUR ---
RECEIVED REPORT. ASSUMED CARE OF PATIENT. CALL LIGHT WITHIN REACH. PATIENT SITTING TO SIDE OF BED WITH BIPAP PATENT. DENIES NEEDS AT THIS TIME. NO DISTRESS. RESP EVEN AND UNLABORED.
[2016-04-15 07:53] LABS: BASOPHILS 0.1 % (0.0-2.0); EOSINOPHILS 0 % (0-7); HEMOGLOBIN 10.8 g/dL (13.5-17.5); IMMATURE GRANULOCYTES 0.7 % (0-5); LYMPHOCYTES 4.1 % (15-50); MCH 25.4 pg (26.0-34.0); MCHC 30.9 g/dL (31.0-37.0); MCV 82.4 fL (80.0-100.0); MEAN PLATELET VOLUME 9.6 fL (7.4-10.4); MONOCYTES 0.8 % (2-11); NEUTROPHILS 94.3 % (40-80); PLATELET COUNT 188 10x3/uL (130-400); RBC 4.25 10x6/uL (4.20-6.10); RDW 17.7 % (11.5-14.5)
[2016-04-15 08:00] VITALS: BP 137/51
[2016-04-15 08:14] LABS: ANION GAP 15.5 mmol/L (8-16); CALCIUM 8.9 mg/dL (8.5-10.1); CARBON DIOXIDE 23.6 mmol/L (21.0-32.0)
[2016-04-15 08:19] LABS: POTASSIUM - SERUM 6.1 mmol/L (3.5-5.1)
--- NOTE | 2016-04-15 10:11 | NUR ---
KAYEXALATE ADMINISTERED AT THIS TIME. NO DISTRESS.
[2016-04-15 12:00] VITALS: BP 152/63
--- NOTE | 2016-04-15 12:30 | NUR ---
PATIENT SITTING TO SIDE OF BED. CALL LIGHT WITHIN REACH. NO DISTRESS. DENIES NEEDS AT THIS TIME. CONSUMED 100% OF NOON MEAL.
[2016-04-15 16:00] VITALS: BP 144/52
--- NOTE | 2016-04-15 16:12 | NUR ---
PATIENT RESTING IN BED PATIENTS SPOUSE AND GRANDSON ARE LEAVING PATIENT ROOM AT THIS TIME. NO DISTRESS. PATIENT DENIES ANY NEEDS. CALL LIGHT WITHIN REACH.
--- NOTE | 2016-04-15 19:35 | NUR ---
RECEIVED REPORT,IV-RCVL-SL, [id number], L.SIDE PACEMAKER, BIPBAP AT BEDSIDE, USING 5L-ON NOW, BED IS LOW, SRX2, CALL LIGHT IN REACH, WILL CONTINUE TO MONITOR
[2016-04-15 20:30] VITALS: BP 131/53
[2016-04-16 00:30] VITALS: BP 155/52
--- NOTE | 2016-04-16 00:56 | NUR ---
LOOM BLOWER AT BEDSIDE FOR VS, NEEDS ADDRESSED. CALL LIGHT IN REACH. WILL CONT TO MONITOR.
[2016-04-16 04:30] VITALS: BP 137/50
--- NOTE | 2016-04-16 05:15 | NUR ---
SLEEPING, BIPAP ON, CALL LIGHT IN REACH, WILL CONTINUE TO MONITOR
--- NOTE | 2016-04-16 05:46 | NUR ---
CHANGED CVL DRESSING USING GROUND SUPPORT EQUIPMENT MECHANIC.
[2016-04-16 06:42] LABS: ANION GAP 15.3 mmol/L (8-16); CALCIUM 8.9 mg/dL (8.5-10.1); CARBON DIOXIDE 23.5 mmol/L (21.0-32.0); CREATININE - SERUM 2.2 mg/dL (0.6-1.3); POTASSIUM - SERUM 4.8 mmol/L (3.5-5.1)
--- NOTE | 2016-04-16 07:00 | NUR ---
RECEIVED REPORT. ASSSUMED CARE OF PATIENT. PATIENT SITTING UP TO SIDE OF BED. RESP EVEN AND UNLABORED. O2 VIA NASAL CANNULA AT THIS TIME. NO DISTRESS. DENIES NEEDS. CALL LIGHT WITHIN REACH.
--- NOTE | 2016-04-16 07:40 | NUR ---
ABSTRACT SEARCHER ON UNIT, STATES THAT [facility] CALLED AND WANTED TO MAKE SURE THAT THIS RECRUITMENT DIRECTOR KNEW WHO THE PATIENT WAS, I STATED YES IS IN 2135. ABSTRACT SEARCHER STATED BUT DO YOU KNOW WHO HE IS, THE CNO WANTS TO MAKE SURE THAT HE RECEIVES EXTRA TLC TODAY. THIS RECRUITMENT DIRECTOR REPLIED TO THE ABSTRACT SEARCHER, I GIVE ALL OF MY PATIENT THE SAME LEVEL OF TLC, THEY DON'T RECEIVE TLC JUST BECAUSE OF "WHOM" THEY ARE. ABSTRACT SEARCHER STATES I UNDERSTAND AND KNOW YOU DO BUT I HAD TO RELAY THE MESSAGE.
[2016-04-16 08:00] VITALS: BP 120/40
--- NOTE | 2016-04-16 10:36 | NUR ---
CENTRAL LINE DRESSING TO RIGHT SUBCLAVIAN PROVIDED AT THIS TIME VIA STERILE TECHNIQUE. SUTURES INTACT. BIOPATCH VISIBLE THROUGH CLEAR PLASTIC WINDOWN. DATED AND INITIALED. SWAB CABS INTACTS. NO DISTRESS. TOLERATED DRESSING CHANGE WELL.
[2016-04-16 12:00] VITALS: BP 132/59
--- NOTE | 2016-04-16 13:00 | NUR ---
RESTING IN BED WITH EYES CLOSED. BIPAP PATENT. RESP EVEN AND UNLABORD. NO DISTRESS. CALL LIGHT WITHIN REACH.
[2016-04-16 16:00] VITALS: BP 140/54
--- NOTE | 2016-04-16 16:45 | NUR ---
SITTING TO SIDE OF BED CONSUMING PM MEAL. DENIES NEEDS. CALL LIGHT WITHIN REACH. NO DISTRESS.
[2016-04-16 20:00] VITALS: BP 134/64
--- NOTE | 2016-04-17 01:15 | NUR ---
UPDATE CALLED TO DR. SOLIS, NO NEW ORDERS
--- NOTE | 2016-04-17 05:24 | NUR ---
NURSE ROUNDS 21:00 - PT AWAKE, ALERT, ORIENTED, SITTING ON SIDE OF BED, CONVERSING, DENIED ANY ACUTE NEEDS OTHER THAN WANTING A TURKEY SANDWICH. NOT PRESENT AT THAT TIME, HOWEVER, WAS HERE WITHIN A FEW MINUTES AFTER THIS. PTS REQUESTED TO KNOW PTS LABS SHE IS CONCERNED WITH PTS KIDNEY FUNCTION. I DID GIVE PTS A COPY OF PTS MOST RECENT BMP AND CBC. ON OR AROUND 22:00 TO 23:00, PTS NOTIFIED US IMMEDIATELY. PTS STATES THAT PT WAS SITTING ON THE SIDE OF HIS BED, AND SLIPPED DOWN TO HIS KNEES. PRIOR TO THIS, PTS STATED THAT PT BECAME INCREASINGLY WEAK AND CONFUSED, AND WAS NOT WEARING HIS BIPAP AT THAT TIME. PT DENIED ANY ACUTE INJURIES OR PAIN. INCIDENT REPORT WILL BE COMPLETED.
--- NOTE | 2016-04-17 05:52 | NUR ---
21:37 04/16/16 RR CALLED R/T PTS INCREASED WEAKNESS, CONFUSION, AND DECREASED LOC. DR. SOLIS NOTIFIED, ABG'S DRAWN X 2, ARTEMIO ESPANA, WELL TESTING OPERATOR RESPONDED. NO NEW ORDERS, NO CHANGES.
[2016-04-17 06:11] LABS: BASOPHILS 0 % (0.0-2.0); EOSINOPHILS 0 % (0-7); HEMATOCRIT 33.2 % (42.0-54.0); HEMOGLOBIN 10.1 g/dL (13.5-17.5); IMMATURE GRANULOCYTES 0.5 % (0-5); LYMPHOCYTES 2.3 % (15-50); MCH 24.9 pg (26.0-34.0); MCHC 30.4 g/dL (31.0-37.0); MEAN PLATELET VOLUME 9.4 fL (7.4-10.4); MONOCYTES 2.2 % (2-11); PLATELET COUNT 191 10x3/uL (130-400); RBC 4.05 10x6/uL (4.20-6.10); RDW 18.2 % (11.5-14.5); WBC 10.6 10x3/uL (4.8-10.8)
[2016-04-17 06:40] LABS: ANION GAP 13.5 mmol/L (8-16); CALCIUM 8.8 mg/dL (8.5-10.1); CARBON DIOXIDE 25.4 mmol/L (21.0-32.0); CREATININE - SERUM 2.2 mg/dL (0.6-1.3); POTASSIUM - SERUM 4.9 mmol/L (3.5-5.1)
[2016-04-17 08:27] VITALS: BP 120/53
--- NOTE | 2016-04-17 10:08 | EC ---
PATIENT:HÉCTOR GRAY DATE OF SERVICE: 04/12/16 SEX: M MEDICAL RECORD: [id number] DATE OF : [birth year] LOCATION:D.M2 D.213 AGE OF PATIENT: 71 ADMISSION DATE: 04/12/16 REFERRING PHYSICIAN: INTERPRETING PHYSICIAN: MAGY GATICA MD ECHOCARDIOGRAM REPORT ECHO CHARGES 4 ECHO COMPLETE CLINICAL DIAGNOSIS: COPD/HTN ECHOCARDIOGRAPHIC MEASUREMENTS (adult normal given) AC root (d.<3.7cm) 2.9 LV Septum d (<1.2 cm> 1.5 Valve Excursion 0.9 LV Septum (systole) 2.2 Left Atria (s.<4.0cm> 5.4 LVPW d(<1.2cm) 1.7 RV (d.<2.3cm) 2.9 LVPW (sytole) 2.1 LV diastole(<5.6CM) 5.0 MV E-F(>70mm/sec) LV systole 3.3 LVOT Diameter 1.9 MV exc.(>10mm) Est.ejection fraction (50-75%) Pericardial Effusion N DOPPLER: LVIT A 131 E 148 LA RVSP 58.3 LVOT 116 AOP1/2T Asc. Ao 211 RVOT 101 RA PA 130 AV Gradient Peak 18.0 AV Mean 8.4 AV Area 1.4 MV Gradient Peak 8.6 MV Mean 2.7 MV Area COMMENTS: Activities Director Scouting: Jeff RONOE Nanny Babysitter:1 Dr. Gatica TAPE# PACS DATE OF SERVICE: 04/14/2016 Echocardiogram FINDINGS: 1. Left ventricular chamber size is within normal limits. Left ventricular systolic function is mildly depressed, ejection fraction in the 40% range. 2. Left atrium is enlarged at 5.4 cm. Right atrium and right ventricular chamber sizes are upper limits of normal. 3. Valvular structures: Aortic valve demonstrates mild calcific aortic ECHOCARDIOGRAM REPORT [id number] HÉCTOR GRAY stenosis. Valve area calculates to 1.4 cm-squared. There is a gradient of 18 mm across the valve. The remaining valvular structures have normal structure and motion. 4. Doppler interrogation elsewise reveals mild mitral regurgitation, moderate tricuspid regurgitation, no other valvular insufficiency or stenosis. Pulmonary systolic pressure, however, is elevated estimated at 58 mmHg. 5. No evidence of pericardial effusion or left ventricular thrombus. TRANSINT:[id number] Voice Confirmation ID: [id number] DOCUMENT ID: [id number] MAGY GATICA MD at 1008 CC: [id number] DICTATION DATE: 04/14/16 1322 DOOR TECHNICIAN: 04/14/16 1512 ADM IN [place] [id number] [place] [id number]
--- NOTE | 2016-04-17 10:33 | NUR ---
PT IS ALERT. ASSESSMENT DONE PER FLOWSHEET. NO OTHER NEEDS AT THIS TIME. WILL CONTINUE TO MONITOR.
[2016-04-17 11:01] VITALS: BP 141/63
[2016-04-17 15:00] VITALS: BP 109/40
--- NOTE | 2016-04-17 15:52 | NUR ---
Patient Name: HÉCTOR GRAY Admission Status: Elective Accout number: [id number] Admission Date: 04-12-2016 : 1945 Admission Diagnosis:GASTROINTESTINAL HEMORRHAGE, UNSPECIFIED Attending: ARRON Current LOS: 5 Anticipated DC Date: Planned Disposition: Home Primary Insurance: MEDICARE A & B Discharge Planning Comments: * Is the patient Alert and Oriented? Yes 0 * How many steps to enter\exit or inside your home? 8-9 0 * PCP DR. CORCORAN 0 * Pharmacy [facility] ON [address] 0 * Preadmission Environment Home with Family 0 * ADLs Independent 0 * Equipment BIPAP Nebulizer Oxygen Walker 0 * Other Equipment HOME AND PORTABLE OXYGEN [facility] - MEDICAL EQUIPMENT PROVIDER PREFERENCE 0 * List name and contact numbers for known caregivers / representatives who currently or will assist patient after discharge: RYLEE GRAY, SPOUSE, 0 * Community resources currently utilized None 0 * Please name any agencies selected above. NONE 0 * Additional services required to return to the preadmission environment? No 0 * Can the patient safely return to the preadmission environment? Yes 0 * Has this patient been hospitalized within the prior 30 days at any hospital? No 0 CM MET WITH PT AND SPOUSE IN ROOM TO DISCUSS DISCHARGE PLANNING AND NEEDS. PT REPORTS LIVING AT HOME INDEPENDENTLY WITH SPOUSE. PT HAS BIPAP, OXYGEN, NEBULIZER AND A WALKER THAT HE USES WHEN NEEDED; PROVIDER IS JESUS. PT HAS NO OUTSIDE SERVICES ASSISTING IN THE HOME. CM DISCUSSED AVAILABILITY OF HOME HEALTH, REHAB SERVICES AND MEDICAL EQUIPMENT. PT DENIES DISCHARGE NEEDS, REPORTS HIS SPOUSE WILL PICK IM UP FOR DISCHARGE HOME. IMPORTANT MESSAGE FROM MEDICARE PROVIDED AND EXPLAINED. PT PLANS TO DISCHARGE HOME WITH SPOUSE, NO ANTICIPATED DISCHARGE NEEDS. CM TO FOLLOW AND ASSIST IF NEEDED. Attending Ambulatory Care: Gilles Pascual
--- NOTE | 2016-04-17 19:18 | NUR ---
RECEIVED REPORT, IV-RCVL-SL, O2-5L, [id number], L. CHEST PACEMAKER, BED IS LOW, SRX2, CALL LIGHT IN REACH, WILL CONTINUE TO MONITOR
[2016-04-17 20:00] VITALS: BP 139/61
--- NOTE | 2016-04-18 00:27 | NUR ---
MINUTE CLERK AT BEDSIDE FOR VS, NEEDS ADDRESSED. CALL LIGHT IN REACH. WILL CONT TO MONITOR.
[2016-04-18 02:00] VITALS: BP 138/55
[2016-04-18 04:00] VITALS: BP 133/60
--- NOTE | 2016-04-18 04:01 | NUR ---
SLEEPING WITH BIPAP ON, BED IS LOW, SRX2,CALL LIGHT IN REACH, WILL CONTINUE TO MONITOR
[2016-04-18 06:09] LABS: ANION GAP 13.7 mmol/L (8-16); CALCIUM 9.1 mg/dL (8.5-10.1); CARBON DIOXIDE 27.7 mmol/L (21.0-32.0); CREATININE - SERUM 2.1 mg/dL (0.6-1.3); POTASSIUM - SERUM 4.4 mmol/L (3.5-5.1)
[2016-04-18 07:13] LABS: MAGNESIUM - SERUM 2.3 mg/dL (1.8-2.4); PHOSPHOROUS 6.1 mg/dL (2.5-4.9)
--- NOTE | 2016-04-18 07:36 | NUR ---
RECEIVED PT REPORT. NO OTHER NEEDS AT THIS TIME. WILL CONTINUE PLAN OF CARE. WILL CONTINUE TO MONITOR.
[2016-04-18 08:39] VITALS: BP 135/59
--- NOTE | 2016-04-18 10:18 | NUR ---
PT IS ALERT. ASSESSMENT DONE PER FLOWSHEET. NO OTHER NEEDS AT THIS TIME. WILL CONTINUE TO MONITOR.
[2016-04-18 12:09] VITALS: BP 151/54
--- NOTE | 2016-04-18 14:00 | NUR ---
Nutrition follow-up: Diet changed to renal per physician due to now with azotemia PO intake 100% of most meals Labs reviewed +BM Wt: 248# Will provide food choices with selective menus and honor food preferences within diet restrictions. RDN following.
[2016-04-18 15:42] VITALS: BP 130/55
--- NOTE | 2016-04-18 20:00 | NUR ---
PT RESTING IN BED WITH BIPAP IN PLACE. ROUSES TO STIMULI. SCDS IN PLACE. SR/PACEMAKER PER TELEMETRY. RIGHT SC CVL SALINE LOCKED. SEE COMPLETED SHIFT ASSESSMENT. CPOC.
[2016-04-18 21:03] VITALS: BP 134/56
--- NOTE | 2016-04-18 22:18 | NUR ---
BEDTIME MEDS GIVEN. PT'S DINNER TRAY AT BEDSIDE UNTOUCHED, OFFERED TO HEAT, PT TASTED IT AND SAID HE DID NOT WANT TO EAT IT. AT BEDSIDE. REVIEWED PLAN OF CARE AND LAB RESULTS WITH .
--- NOTE | 2016-04-18 23:54 | NUR ---
PT'S LINENS WET ON HIS BED. COMPLETE BED CHANGE DONE. PT DID NOT WANT HIS DINNER TRAY, HE DID EAT THE SALES WAREHOUSE DRIVER SALAD THAT WAS WITH IT AND IS WANTING FOOD NOW. OFFERED SANDWHICH TRAY AND PT DECLINED. FINALLY DECIDED HE WOULD EAT JELLO X 2 WITH COLA. AT BEDSIDE.
[2016-04-19 01:48] VITALS: BP 124/53
--- NOTE | 2016-04-19 03:58 | NUR ---
NEW ORDERS NOTED FROM DR BANEGAS.
[2016-04-19 06:00] VITALS: BP 121/51
[2016-04-19 06:38] LABS: CALCIUM 8.6 mg/dL (8.5-10.1); CARBON DIOXIDE 28.3 mmol/L (21.0-32.0); CREATININE - SERUM 2.2 mg/dL (0.6-1.3); MAGNESIUM - SERUM 2.1 mg/dL (1.8-2.4); PHOSPHOROUS 6.1 mg/dL (2.5-4.9); POTASSIUM - SERUM 4.3 mmol/L (3.5-5.1)
[2016-04-19 07:52] LABS: BASOPHILS 0 % (0.0-2.0); EOSINOPHILS 0 % (0-7); HEMATOCRIT 34.8 % (42.0-54.0); HEMOGLOBIN 10.4 g/dL (13.5-17.5); IMMATURE GRANULOCYTES 0.5 % (0-5); LYMPHOCYTES 3.4 % (15-50); MCH 25.1 pg (26.0-34.0); MCHC 29.9 g/dL (31.0-37.0); MCV 84.1 fL (80.0-100.0); MEAN PLATELET VOLUME 9.6 fL (7.4-10.4); NEUTROPHILS 92.1 % (40-80); PLATELET COUNT 207 10x3/uL (130-400); RBC 4.14 10x6/uL (4.20-6.10); RDW 18.3 % (11.5-14.5); WBC 14.6 10x3/uL (4.8-10.8)
[2016-04-19 08:00] VITALS: BP 107/46
--- NOTE | 2016-04-19 09:42 | NUR ---
PT IS ALERT. ASSESSMENT DONE PER FLOWSHEET. NO OTHER NEEDS AT THIS TIME. WILL CONTINUE TO MONTIOR.
[2016-04-19 12:00] VITALS: BP 107/49
[2016-04-19 16:00] VITALS: BP 112/45
--- NOTE | 2016-04-19 19:30 | NUR ---
RESUMED CARE OF PT, AT BEDSIDE, 02-5L, IV-RCVL-SL, TELEMTRY-85, L.PACEMAKER, BIPAP AT BEDSIDE, DENIES ANY NEEDS, CALL LIGHT IN REACH, WILL CONTINUE TO MONITOR
[2016-04-19 21:39] VITALS: BP 111/60
--- NOTE | 2016-04-20 00:38 | NUR ---
BATCH WEIGHER AT BEDSIDE TO OBTAIN VITALS, CALL LIGHT IN REACH. WILL CONTINUE WITH PLAN OF CARE. 90 SR WITH BBB ON TELEMETRY.
[2016-04-20 01:40] VITALS: BP 151/70
[2016-04-20 04:56] VITALS: BP 139/48
[2016-04-20 06:03] LABS: BASOPHILS 0 % (0.0-2.0); EOSINOPHILS 0 % (0-7); HEMATOCRIT 35.3 % (42.0-54.0); HEMOGLOBIN 10.8 g/dL (13.5-17.5); IMMATURE GRANULOCYTES 0.9 % (0-5); LYMPHOCYTES 2.8 % (15-50); MCH 25.4 pg (26.0-34.0); MCHC 30.6 g/dL (31.0-37.0); MCV 82.9 fL (80.0-100.0); MEAN PLATELET VOLUME 9.5 fL (7.4-10.4); MONOCYTES 1.4 % (2-11); NEUTROPHILS 94.9 % (40-80); PLATELET COUNT 204 10x3/uL (130-400); RBC 4.26 10x6/uL (4.20-6.10); RDW 18.1 % (11.5-14.5); WBC 11.8 10x3/uL (4.8-10.8)
[2016-04-20 06:23] LABS: ANION GAP 11.2 mmol/L (8-16); CALCIUM 8.9 mg/dL (8.5-10.1); CARBON DIOXIDE 27.1 mmol/L (21.0-32.0); POTASSIUM - SERUM 4.3 mmol/L (3.5-5.1)
--- NOTE | 2016-04-20 07:30 | NUR ---
PATIENT IS SLIPPING DOWN IN THE BED, DID HAVE ASSISTANCE TO PULL HIM UP AND PUT NEW TELEMETRY PADS ON HIM BECAUSE A COUPLE HAD FALLEN OFF.
[2016-04-20 08:01] VITALS: BP 147/60
--- NOTE | 2016-04-20 10:08 | NUR ---
PATIENTS SPOUSE CALLED AND ASKED ABOUT BUN AND CREATININE AND HIS WEIGHT, ALSO LET HER KNOW DR. STOKES HAS BEEN CONSULTED.
[2016-04-20 12:24] VITALS: BP 166/56
--- NOTE | 2016-04-20 14:00 | NUR ---
PATIENT IS LETHARGIC AND HARD TO AWAKEN, HIS BILATERAL HANDS ARE MORE EDEMATOUS.
[2016-04-20 16:00] VITALS: BP 136/49
--- NOTE | 2016-04-20 18:13 | NUR ---
attempted 16 v[place] citizen tong catheter, unsuccessful. patient has a hx of prostate cancer and he does not want anyone to try again. spouse says a physician can do it or he can use a urinal.
--- NOTE | 2016-04-20 18:19 | NUR ---
PAGED DR. BENJAMIN AND LET HIM KNOW THAT PATIENT DOES NOT WANT ANYONE ELSE TO TRY TO PLACE GALVEZ CATHETER. DR. BENJAMIN SAID "OK".
[2016-04-20 20:00] VITALS: BP 133/60
[2016-04-21] VITALS: BP 155/58
[2016-04-21 04:00] VITALS: BP 154/63
--- NOTE | 2016-04-21 07:56 | NUR ---
PT SLEEPING, WEARING C-PAP. AWAKENS TO VOICE. PT REFUSING TO WEAR SCD'S AT THIS TIME. ALSO TELEMETRY OFF, PT REFUSES TO WEAR AT THIS TIME WELL. RT SUB CLAV CENTRAL LINE WITH DRESSING CLEAN DRY AND INTACT, SWAB CAPS IN PLACE. NO DISTRESS NOTED. CALL LIGHT WITH IN REACH. WILL CONT. TO MONITOR.
[2016-04-21 08:22] VITALS: BP 137/63
[2016-04-21 08:44] LABS: BASOPHILS 0.1 % (0.0-2.0); EOSINOPHILS 0 % (0-7); HEMATOCRIT 35.7 % (42.0-54.0); IMMATURE GRANULOCYTES 0.4 % (0-5); LYMPHOCYTES 3.6 % (15-50); MCH 25.1 pg (26.0-34.0); MCHC 30.8 g/dL (31.0-37.0); MCV 81.5 fL (80.0-100.0); MEAN PLATELET VOLUME 9.3 fL (7.4-10.4); MONOCYTES 1.3 % (2-11); NEUTROPHILS 94.6 % (40-80); PLATELET COUNT 166 10x3/uL (130-400); RBC 4.38 10x6/uL (4.20-6.10); RDW 17.8 % (11.5-14.5); WBC 12.6 10x3/uL (4.8-10.8)
[2016-04-21 08:54] LABS: ANION GAP 9.2 mmol/L (8-16); CARBON DIOXIDE 32.8 mmol/L (21.0-32.0); CREATININE - SERUM 1.7 mg/dL (0.6-1.3); PHOSPHOROUS 4.4 mg/dL (2.5-4.9)
--- NOTE | 2016-04-21 10:28 | NUR ---
RESPIRATORY THERAPY ADJUSTING BIPAP NAD NOTED WILL CONTINUE TO MONITOR
--- NOTE | 2016-04-21 11:19 | NUR ---
14F COUDE GALVEZ CATH INSERTED, AND ATTACHED TO BSD BAG. BALLOON TESTED AND IS W/O LEAKS. 10ML OF NS INSERTED IN BALLOON. PT TOLERATED WELL. PT REMAINS ON BUMEX GTT AND HAS HAD 1500MG OUT ALREADY THIS AM, BEFORE CATH WAS INSERTED. WILL CONT. TO MONITOR.
[2016-04-21 12:42] VITALS: BP 142/60
[2016-04-21 15:11] LABS: APPEARANCE CLEAR (CLEAR); BILIRUBIN NEGATIVE (NEGATIVE); COLOR STRAW (YELLOW); GLUCOSE NEGATIVE (NEGATIVE); KETONE NEGATIVE (NEGATIVE); LEUKOCYTE ESTERASE NEGATIVE (NEGATIVE); NITRITE NEGATIVE (NEGATIVE); PROTEIN NEGATIVE (NEGATIVE); UROBILINOGEN NORMAL (NORMAL)
[2016-04-21 16:55] VITALS: BP 115/59
--- NOTE | 2016-04-21 18:05 | NUR ---
PT SITTING UP ON SIDE OF BED. A/O. GALVEZ CATH PATENT WITH CLEAR YELLOW URINE. DENIES NEEDS. NO DISTRESS NOTED. CALL LIGHT WITH IN REACH.
--- NOTE | 2016-04-21 20:26 | NUR ---
PT LYING IN BED, EYES CLOSED, BIPAP ON, EASILY ROUSABLE TO VERBAL STIMULI. CONTINUE TO MONITOR CLOSELY. BED LOW, CALL LIGHT IN REACH, SIDE RAILS X 2, HOB 35 DEGREES.
[2016-04-21 21:31] VITALS: BP 116/66
--- NOTE | 2016-04-22 01:09 | NUR ---
PT AWAkE, ALERT, ORIENTED, SITTING ON SIDE OF BED EATING A SNACK. PT DENIES ANY NEEDS AT THIS TIME. CONTINUE TO MONITOR CLOSELY. BED LOW, CALL LIGHT IN REACH, SIDE RAILS X 2, HOB 30 DEGREES, SCD'S ON.
[2016-04-22 02:21] VITALS: BP 133/67
[2016-04-22 05:53] VITALS: BP 135/61
[2016-04-22 05:54] LABS: MAGNESIUM - SERUM 1.7 mg/dL (1.8-2.4); PHOSPHOROUS 4.3 mg/dL (2.5-4.9)
--- NOTE | 2016-04-22 08:29 | NUR ---
ASSESSMENT DONE. PT SITTING UP ON SIDE OF BED. A/O. NO DISTRESS NOTED. WEARING SCD'S, GALVEZ CATH PATENT TO BSD. EDEMA IMPROVING. LEFT HAND SWOLLEN. PT WILL ELEVATED ON PILLOW WHILE LAYING IN BED. PT DENIES NEEDS AT THIS TIME. CALL LIGHT WITH IN REACH. WILL CONT. TO MONITOR.
[2016-04-22 09:04] VITALS: BP 137/45
[2016-04-22 12:01] LABS: ANION GAP 9.9 mmol/L (8-16); CALCIUM 8.4 mg/dL (8.5-10.1); CARBON DIOXIDE 33.4 mmol/L (21.0-32.0); POTASSIUM - SERUM 3.3 mmol/L (3.5-5.1)
[2016-04-22 12:12] VITALS: BP 148/57
--- NOTE | 2016-04-22 13:14 | NUR ---
SPUTUM COLLECTION CUP TAKEN INTO PT'S ROOM. EDUCATED PT AND SPOUSE ON HOW TO PROVIDE A SAMPLE. PT SITTING ON SIDE OF BED, RESP SLIGHTLY LABORED. PT STATES HE JUST AMBULATED TO THE RESTROOM AND BACK WITH HIS 'S ASSISTANCE. DENIES NEEDS AT THIS TIME. CALL LIGHT WITH IN REACH. WILL CONT. TO MONITOR.
[2016-04-22 16:25] VITALS: BP 107/40
--- NOTE | 2016-04-22 16:58 | NUR ---
PT LAYING IN BED WITH HOB ELEVATED. WEAR O2 VIA NC AT 5L. EYES CLOSED. RESP EVEN AND UNLABORED. BUMEX GTT WAS DECREASED TO 2.5ML/HR. PT DENIES NEEDS. STATES HE IS TIRED. HE HAS BEEN AWAKE ALL DAY. CALL LIGHT WITH IN REACH. WILL CONT. TO MONITOR.
--- NOTE | 2016-04-22 18:20 | NUR ---
PT IS ALERT. NO SS OF DISTRESS AT THIS TIME. WILL CONTINUE TO MOTNIOR.
--- NOTE | 2016-04-22 19:28 | NUR ---
PT IS RESTING IN BED WITH EYES OPEN. ALERT AND ORIENTED X 3. DOING A UPDRAFT TX. AT THIS TIME. BUMEX DRIP IS INFUSING TO RIGHT SC LINE WITHOUT DIFFICULTY. GALVEZ CATH PATENT AND DRAINING TO A GRAVITY BAG. O2 IS ON AT 5LPM PER NC. TELEMETRY UNIT IS ON AND INTACT. SR'S ARE UP X 2 IN BED. CALL LIGHT AND BEDSIDE TABLE ARE WITHIN EASY REACH.
[2016-04-22 20:19] VITALS: BP 116/47
--- NOTE | 2016-04-22 22:15 | NUR ---
PT IS RESTING QUIETLY IN BED WITH EYES CLOSED. RESPS ARE EVEN AND UNLABORED. NO ACUTE DISTRESS NOTED. CPAP ON.
--- NOTE | 2016-04-23 00:09 | NUR ---
PT IS RESTING IN BED WITH EYES CLOSED.
[2016-04-23 00:37] VITALS: BP 115/48
--- NOTE | 2016-04-23 03:38 | NUR ---
RESTING IN BED WITH EYES CLOSED.
[2016-04-23 04:23] VITALS: BP 126/51
[2016-04-23 05:08] LABS: BASOPHILS 0 % (0.0-2.0); EOSINOPHILS 0 % (0-7); HEMOGLOBIN 11.5 g/dL (13.5-17.5); IMMATURE GRANULOCYTES 0.6 % (0-5); LYMPHOCYTES 1.8 % (15-50); MCHC 31.1 g/dL (31.0-37.0); MCV 80.4 fL (80.0-100.0); MEAN PLATELET VOLUME 9.9 fL (7.4-10.4); MONOCYTES 2.9 % (2-11); NEUTROPHILS 94.7 % (40-80); PLATELET COUNT 181 10x3/uL (130-400); RDW 17.5 % (11.5-14.5)
[2016-04-23 05:26] LABS: WBC 16.5 10x3/uL (4.8-10.8)
[2016-04-23 05:51] LABS: ALBUMIN 2.8 g/dL (3.4-5.0); ANION GAP 7.5 mmol/L (8-16); BILIRUBIN - TOTAL 0.37 mg/dL (0.2-1.3); CALCIUM 7.9 mg/dL (8.5-10.1); CARBON DIOXIDE 37.8 mmol/L (21.0-32.0); CREATININE - SERUM 2.2 mg/dL (0.6-1.3); POTASSIUM - SERUM 3.3 mmol/L (3.5-5.1); PROTEIN - SERUM 5.8 g/dL (6.4-8.2)
[2016-04-23 09:00] VITALS: BP 118/70
[2016-04-23 16:00] VITALS: BP 106/53
--- NOTE | 2016-04-23 17:45 | NUR ---
ALERT AND ORIENTED X4. SITTING UP IN BED EATING DINNER. AT BEDSIDE. DENIES PAIN. CHRONIC SOB MANAGED. NO CHANGE. CONTINUE PLAN OF CARE AND SAFETY PRECAUTIONS. SINUS RHYTHM 84bpm ON TELEMETRY.
--- NOTE | 2016-04-23 19:54 | NUR ---
RECEIVED IN BEDROOM. LAYING IN BED WITH FAMILY AT BEDSIDE. RESPIRATORY TREATMENT GOING AT THIS TIME. ENCOURAGE TO EXPRESS NEEDS. CALL LIGHT IN REACH
[2016-04-23 20:00] VITALS: BP 105/43
--- NOTE | 2016-04-24 01:42 | NUR ---
SITTING ON EDGE OF BED EATTING A SNACK. DENIES ANY NEEDS AT THIS TIME. CALL LIGHT IN REACH
[2016-04-24 04:00] VITALS: BP 128/58
[2016-04-24 06:31] LABS: BASOPHILS 0 % (0.0-2.0); EOSINOPHILS 0 % (0-7); HEMATOCRIT 35.8 % (42.0-54.0); HEMOGLOBIN 11.2 g/dL (13.5-17.5); IMMATURE GRANULOCYTES 0.8 % (0-5); MCH 25.5 pg (26.0-34.0); MCHC 31.3 g/dL (31.0-37.0); MCV 81.4 fL (80.0-100.0); MEAN PLATELET VOLUME 9.7 fL (7.4-10.4); NEUTROPHILS 94.2 % (40-80); PLATELET COUNT 154 10x3/uL (130-400); RDW 17.8 % (11.5-14.5); WBC 13.2 10x3/uL (4.8-10.8)
[2016-04-24 06:56] LABS: ALBUMIN 2.7 g/dL (3.4-5.0); ANION GAP 8.7 mmol/L (8-16); BILIRUBIN - TOTAL 0.35 mg/dL (0.2-1.3); CARBON DIOXIDE 36.5 mmol/L (21.0-32.0); CREATININE - SERUM 2.3 mg/dL (0.6-1.3); MAGNESIUM - SERUM 1.9 mg/dL (1.8-2.4); PHOSPHOROUS 5.3 mg/dL (2.5-4.9); POTASSIUM - SERUM 3.2 mmol/L (3.5-5.1); PROTEIN - SERUM 5.8 g/dL (6.4-8.2)
[2016-04-24 07:59] VITALS: BP 104/52
[2016-04-24 11:56] VITALS: BP 125/62
[2016-04-24 14:14] LABS: HEMATOCRIT 35.9 % (42.0-54.0); HEMOGLOBIN 10.9 g/dL (13.5-17.5)
--- NOTE | 2016-04-24 15:00 | NUR ---
ALERT AND ORIENTED X4. BLOOD SEEN AT GALVEZ SITE TIP OF PENIS. DC GALVEZ PER ORDER. BULB INTACT. CONTINUE PLAN OF CARE AND SAFETY PRECAUTIONS.
--- NOTE | 2016-04-24 16:07 | NUR ---
UA COLLECTED AND TAKEN TO LAB. CALLED MACHINERY REPAIR MAINTENANCE SUPERVISOR DOCTOR PER PATIENT REQUEST REGARDING DISCHARGE. DISCHARGE DENIED DUE TO H&H DROP. CONTINUE PLAN OF CARE AND SAFETY PRECAUTIONS .
[2016-04-24 16:12] LABS: APPEARANCE HAZY (CLEAR); BILIRUBIN NEGATIVE (NEGATIVE); COLOR YELLOW (YELLOW); GLUCOSE NEGATIVE (NEGATIVE); KETONE NEGATIVE (NEGATIVE); LEUKOCYTE ESTERASE 1+ (NEGATIVE); NITRITE NEGATIVE (NEGATIVE); PROTEIN NEGATIVE (NEGATIVE); UROBILINOGEN NORMAL (NORMAL)
[2016-04-24 16:13] LABS: BACTERIA FEW /hpf (NONE SEEN); EPITHELIAL CELLS 0-5 /hpf (0-5); MUCUS <1+ /lpf (NONE SEEN); YEAST <1+ /hpf (NONE SEEN)
[2016-04-24 16:27] VITALS: BP 136/68
--- NOTE | 2016-04-24 19:30 | NUR ---
PT RECEIVED IN BED WITH EYES OPEN VISITNG WITH . NO NEEDS OR CONCERNS MADE KNOWN. CALL LIGHT IN REACH.
[2016-04-24 21:40] VITALS: BP 127/51
[2016-04-25 02:00] VITALS: BP 125/63
--- NOTE | 2016-04-25 04:45 | NUR ---
PT IN BED WITH EYES CLOSED AND CHEST RISING. RECEIVING O2 AT 5LPM VIA NC. HAS BEEN WEARING BI-PAP AND HAS TAKEN IN IT OFF. HAS HAD URINE OUTPUT WITH 100MLS COLLECTED IN URINAL AND MISSED NEEDING FULL BEDDING CHANGE. NEW BREIF AND GOWN APPLIED. NO OTHER NEEDS OR CONCERNS MADE KNOWN AT THIS TIME. CALL LIGHT IN REACH.
[2016-04-25 08:07] VITALS: BP 112/59
[2016-04-25 08:15] LABS: BASOPHILS 0.1 % (0.0-2.0); EOSINOPHILS 0 % (0-7); HEMATOCRIT 34.6 % (42.0-54.0); HEMOGLOBIN 10.7 g/dL (13.5-17.5); IMMATURE GRANULOCYTES 1.1 % (0-5); LYMPHOCYTES 4.8 % (15-50); MCH 25.2 pg (26.0-34.0); MCHC 30.9 g/dL (31.0-37.0); MCV 81.4 fL (80.0-100.0); MEAN PLATELET VOLUME 9.8 fL (7.4-10.4); MONOCYTES 4.6 % (2-11); NEUTROPHILS 89.4 % (40-80); PLATELET COUNT 144 10x3/uL (130-400); RBC 4.25 10x6/uL (4.20-6.10); RDW 17.8 % (11.5-14.5); WBC 14.1 10x3/uL (4.8-10.8)
--- NOTE | 2016-04-25 08:28 | NUR ---
AM ROUNDING- PT LAYING IN BED ON BACK WITH EYES CLOSES RESTING CURRENTLY ON BI-PAP MACHINE. ON MONITOR SHOWING SR, HR 77. ON EP, WILL CHECK AM LABS AND TX PER PROTOCOL. IV SEEN TO RIGHT CVL THAT IS CURRENTLY SALINE LOCKED. ON 02 AT 5L VIA NC. SCDS ARE ON. D/C ORDERS ARE IN CHART. LAB DROPPED OFF LAB CONTAINERS FOR ME TO GET THROUGH CVL. WILL GET LABS AND TAKE TO LAB. WILL CONTINUE TO MONITOR AND CONTINUE WITH PLAN OF CARE.
[2016-04-25 09:02] LABS: ALBUMIN 2.5 g/dL (3.4-5.0); BILIRUBIN - TOTAL 0.41 mg/dL (0.2-1.3); CALCIUM 8.3 mg/dL (8.5-10.1); CARBON DIOXIDE 36.9 mmol/L (21.0-32.0); CREATININE - SERUM 2.2 mg/dL (0.6-1.3); PROTEIN - SERUM 5.5 g/dL (6.4-8.2)
[2016-04-25 09:06] LABS: POTASSIUM - SERUM 3.9 mmol/L (3.5-5.1)
--- NOTE | 2016-04-25 10:27 | NUR ---
Patient Name: HÉCTOR GRAY Admission Status: Elective Accout number: [id number] Admission Date: 04-12-2016 : 1945 Admission Diagnosis:GASTROINTESTINAL HEMORRHAGE, UNSPECIFIED Attending: ARRON Current LOS: 13 Anticipated DC Date: 04-25-2016 Planned Disposition: Outpatient PT\OT Primary Insurance: MEDICARE A & B PLANNED EXTERNAL PROVIDER: PHYSICAL THERAPY AT [facility] Discharge Planning Comments: CM MET WITH PT IN ROOM TO DISCUSS DISCHARGE NEEDS AND PLANNING. CM DISCUSSED AVAILABILITY OF HOME HEALTH, REHAB SERVICES AND MEDICAL EQUIPMENT. PT DENIES NEED OF HOME HEALTH AND WOULD LIKE OUTPATIENT PHYSICAL THERAPY AT DR. CORCORAN'S OFFICE. SPOUSE TO TRANSPORT HOME AT DISCHARGE. IMPORTANT MESSAGE FROM MEDICARE PROVIDED AND EXPLAINED. RN PREET CHRISTIAN CALLED AND SPOKE TO THERAPIST BRITTANY AT DR. CORCORAN'S OFFICE AND PROVIDED REFERRAL INFORMATION. BRITTANY WILL OBTAIN ORDER FROM DR. CORCORAN AND CONTACT PT TO MAKE SHEDULE ARRANGEMENTS. PT AND SPOUSE NOTIFIED. NO FURTHER DISCHARGE NEEDS IDENTIFIED. Outbound Sales Agent: Gilles Pascual
[2016-04-25 12:22] VITALS: BP 105/45
[2016-04-25] MEDS ORDERED: LIBRAX CAPSULE1 CAP PO (13:13)
[2016-04-25] MEDS ORDERED: NYSTATIN ORAL SU5 ML PO (13:13)
[2016-04-25] MEDS ORDERED: BROVANA15 MCG/2 M INH (13:13)
[2016-04-25] MEDS ORDERED: IPRAT-ALBUT 0.5-3 ML UPD (13:14)
[2016-04-25] MEDS ORDERED: DIOVAN80 MG PO (13:15)
[2016-04-25] MEDS ORDERED: REVATIO20 MG PO (13:15)
[2016-04-25] MEDS ORDERED: BUMEX 1 MG TAB1 MG PO (13:17)
[2016-04-25] MEDS ORDERED: OS-CAL500 MG PO (13:17)
[2016-04-25] MEDS ORDERED: MUCINEX DM ER1 EAC1 PO (13:18)
[2016-04-25] MEDS ORDERED: PULMICORT0.5 MG/21 UPD (13:18)
[2016-04-25] MEDS ORDERED: K-TAB10 MEQ PO (13:18)
[2016-04-25] MEDS ORDERED: PROTONIX40 MG PO (13:19)
[2016-04-25] MEDS ORDERED: PREDNISONE20 MG PO (13:19)
--- NOTE | 2016-04-25 14:53 | NUR ---
D/C PAPERWORK EXPLAINED TO PT, SIGNED BY PT, AND PLACED IN CHART. HEART MONITOR REMOVED AND RETURNED TO [facility] WITH TELEMETRY. CVL TO RIGHT SIDE REMOVED WITH CATH TIP INTACT. TOLERATED WELL. OBSERVED CLOSELY WITH DIRECT PRESSURE APPLIED FOR 5 MINUTES. INSTRUCTED PT TO REMAIN LAYING FLAT FOR ATLEAST 15-20 MINUTES. PT AGREED. WILL CONTINUE TO MONITOR.
--- NOTE | 2016-04-25 15:33 | NUR ---
MADALYN (STAFF MEMBER) IS CURRENTLY TAKING PT OUT VIA WHEELCHAIR TO BE D/C HOME. PTS BELONGINGS ARE TOGETHER AND IS AT SIDE. PT INSTRUCTED TO LEAVE DRESSING WHERE CVL WAS REMOVED ON FOR ATLEAST 24 HOURS, PT AGREED.
--- NOTE | 2016-04-26 11:21 | NUR ---
JOSUÉ NOT WORKING. NEW DISCHARGE MEDICATIONS CALLED TO MARY. SPOKE WITH DULCE/PHARMACIST.
--- NOTE | 2016-04-27 13:28 | DS ---
PATIENT:HÉCTOR GRAY :41 MEDICAL RECORD: [id number] DISCHARGE SUMMARY ADMISSION DATE: 04/12/16 DISCHARGE DATE: 04/25/16 DISCHARGE DIAGNOSES: 1. Exacerbation of chronic obstructive pulmonary disease. 2. Anemia of gastrointestinal blood loss. 3. Obstructive sleep apnea. 4. Hypertension. 5. Ibzqv-rq-lfsbbbx renal insufficiency. 6. Hematuria, gastroesophageal reflux disease, coronary artery disease, hyperlipidemia, restless legs syndrome of hypoxemia, ymewo-xb-pesbkin hypoxic hypercapnic respiratory failure, pulmonary edema, pulmonary hypertension, mild , mild MR, moderate TR, diabetes mellitus type 2, hypokalemia replacement. HOSPITAL COURSE: A 71-year-old male with history of severe COPD, obstructive sleep apnea, and CAD, admitted by Dr. Pryor in my absence for symptomatic anemia. He had history of previous GI bleeding. He had gotten back on his anti-inflammatories apparently due to arthritis. Dr. De Leon discuss with him the past after his last EGD not using any anti-inflammatories. Has abdominal pain on admission as well. CT abdomen without contrast did not show acute culture symptoms. He had a GI consult, Dr. De Leon, but the patient had constipation, abdominal pain due to that anemia due to resuming his anti-inflammatories. He did not feel that an endoscopy was recommended. The patient had transfusion of 2 units of packed cells with improvement in his H&H and resolution of his chronic left upper quadrant abdominal pain. He developed pulmonary edema and respiratory failure with CO2 retention and was seen in consultation by Dr. Chaudhari and Karma from pulmonary. He was placed on BiPAP and ultimately improved and CO2 retention. Echo did show above findings including pulmonary hypertension. Dr. Parada ordered Revatio at 20 mg t.i.d. The patient has gradually improved. He had some bladder trauma from his White catheter with some bleeding yesterday, was able to void without the catheter now, not passing clots. H&H is stable with hemoglobin of 10.7 this morning. He desires discharge. He has been instructed not to take any anti-inflammatories in the future. He was seen by renal as well. They had placed him on a Bumex drip to help with his pulmonary edema. He diuresed over 12 pounds. At discharge, his white count was 14,000, H&H is 10.7 and 34.6. It was 11.5 and 37.0 after transfusion. His potassium was 3.9. BUN and creatinine were 86 and 2.2 down from 96 and 2.3. Discharged home on renal diet. ACTIVITY: Progress as tolerated and returned to clinic in 1 week to see me with BMP, CBC, he will see renal and pulmonary with Dr. Chaudhari per their orders. DISCHARGE MEDICATIONS: Nystatin oral suspension 5 cc p.o. q.i.d. p.c. and h.s., Brovana updraft 15 mcg b.i.d., Librax 1 cap p.o. t.i.d. p.r.n. abdominal cramping, DuoNeb updrafts q.6 hours and q.4 p.r.n., Revatio 20 mg p.o. t.i.d., Diovan 80 mg tablets, 320 mg p.o. daily, Bumex 1 mg p.o. b.i.d., Os-Biju 500 mg p.o. b.i.d., K-Tab 10 mEq p.o. b.i.d., Pulmicort 0.5 mg per HHN q.12 hours, Mucinex DM 2 tabs p.o. b.i.d., Protonix 40 mg p.o. b.i.d., prednisone [address] Chaudhari's taper, continue Plavix 75 mg p.o. daily, Nitrostat 0.4 sublingual p.r.n. chest pain, gabapentin 300 mg p.o. t.i.d., Seroquel 25 mg p.o. at h.s., Requip 5 mg tablets, 10 mg p.o. at h.s., Exforge 10/320 25 1 p.o. daily, and Celexa 20 mg p.o. daily. In the above medication list discontinue DISCHARGE SUMMARY REPORT [id number] HÉCTOR GRAY the valsartan 320. TRANSINT:[id number] Voice Confirmation ID: [id number] DOCUMENT ID: [id number] CRISTOFER CORCORAN MD at 6112 CC: [id number] DICTATION DATE: 04/25/16 1328 PEST MANAGEMENT SUPERVISOR: 04/26/16 0256 DIS IN 04/25/16 [facility] [address] [place], [facility]901
--- NOTE | 2016-04-28 13:49 | CN ---
PATIENT NAME:HÉCTOR GRAY MEDICAL RECORD: [id number] : 41 LOCATION:D. D.2137 ADMIT DATE: 04/12/16 ACCOUNT: [id number] CONSULTING PHYSICIAN: ARNIE HALL MD REFERRING PHYSICIAN: YUNIER THURSTON MD DATE OF CONSULTATION: 04/14/2016 CONSULT REQUESTING PHYSICIAN: Damaso Zazueta MD REASON FOR CONSULTATION: Acute exacerbation of chronic obstructive pulmonary disease, mhkqg-vy-towsioz hypoxic hypercapnic respiratory failure. HISTORY OF PRESENT ILLNESS: Mr. Gray is a 71-year-old gentleman, who has a history of COPD, home oxygen dependent, obstructive sleep apnea, was admitted with left upper quadrant pain. He was also having some shortness of breath. ABG was done with high CO2 with a low pH. The patient was anemic, he was transfused 3 units since yesterday. Now, he is feeling a little bit better. Denies any fever or any chill, no night sweats. There is no associated nausea or vomiting. No diarrhea. REVIEW OF SYSTEMS: As in history of present illness. PAST MEDICAL HISTORY: 1. COPD, home oxygen dependent. 2. Chronic hypoxic respiratory failure. 3. Obstructive sleep apnea. He is on BiPAP. 4. Coronary artery disease. 5. Hypertension. 6. History of pneumonia a year ago. 7. Prostate cancer. 8. Basal cell carcinoma on the face. PAST SURGICAL HISTORY: 1. He is status post CABG. 2. Status post pacemaker placement. 3. Lumbar surgery. 4. Prostate radiation surgery. 5. Cataract surgery. ALLERGIES: HE IS ALLERGIC TO CEPHALEXIN AND PROCARDIA. PRESENT MEDICATIONS: On [employer], was reviewed. PERSONAL AND SOCIAL HISTORY: The patient is a nondrinker. He is an ex-smoker. FAMILY HISTORY: Noncontributory. PHYSICAL EXAMINATION: GENERAL: Now, the patient is lying comfortable. He is not in acute distress. VITAL SIGNS: The blood pressure is 105/42, pulse is 62, respirations 21, temperature is 98.1, and SpO2 is 95% on 5 liters nasal cannula. HEENT: Conjunctivae pink, sclerae nonicteric. NECK: Neck is supple. No JVD. CHEST: There are bibasilar crackles. No wheezing. HEART: Rhythm regular, normal sound, no murmur. CONSULT REPORT [id number] HÉCTOR GRAY ABDOMEN: Soft. Bowel sounds present. No hepatosplenomegaly. RECTAL: Deferred. EXTREMITIES: No cyanosis. No clubbing. There is 1+ pedal edema. SKIN: The skin is warm, normal turgor. CENTRAL NERVOUS SYSTEM: The patient is awake and alert. There is no obvious cranial nerve abnormality. The gait was not tested. LABORATORY DATA: CBC: WBC 7.6, hemoglobin is 9.3, hematocrit 31.1 and the platelet count is 197. Chemistry: Sodium 140, potassium 4.8, BUN is 39, creatinine is 1.9, bicarbonate is 25.2. ABG: The pH is 7.26, pCO2 of 55.4, the pO2 of 57, and bicarbonate is 24.9. IMAGING: Chest radiograph, there is increased interstitial marking. CT scan of the abdomen, there are bibasilar infiltrate with some atelectatic changes. IMPRESSION: 1. Wrobm-sz-tkghoob hypoxic hypercapnic respiratory failure. 2. Respiratory acidosis. 3. Acute exacerbation of chronic obstructive pulmonary disease. 4. Bilateral lower lobe atelectasis, possible pneumonia. 5. Obstructive sleep apnea. The patient is on BiPAP at home. 6. Anemia secondary to gastrointestinal bleed. 7. History of coronary artery disease. RECOMMENDATION: 1. Continue the BiPAP, as required. 2. Albuterol ipratropium nebulizer. 3. Start Brovana and budesonide nebulizer. 4. Supplemental oxygen. 5. Agree with transfusion. 6. Methylprednisolone IV. Dr. Zazueta, once again thank you for involving me in the care of Mr. Gray. TRANSINT:[id number] Voice Confirmation ID: [id number] DOCUMENT ID: [id number] ARNIE HALL MD at 1349 CC: DAMASO ZAZUETA MD [id number] DICTATION DATE: 04/14/16 1501 TEAM MEMBER: 04/14/16 2326 DIS IN 04/25/16 [place] [id number] [place] [id number]
[2016-05-05 16:13] LABS: AEROBE ID Final report (())
== END 2016-04-25 15:40 | disposition home or self-care (01) | DRG 189 ==
LOC: D.SDCHOLD 17:47 → D.M2 17:47
PROVIDERS: Family Medicine; Internal Medicine; Internal Medicine Pulmonary Disease; ADMIT Family Medicine
PROC: 05H533Z Insertion of Infusion Device into Right Subclavian Vein, Percutaneous Approach (ICD-10-PCS; principal; 2016-04-12)
PROC: 5A09457 Assistance with Respiratory Ventilation, 24-96 Consecutive Hours, Continuous Positive Airway Pressure (ICD-10-PCS; 2016-04-13)
PROC: 0T9B70Z Drainage of Bladder with Drainage Device, Via Natural or Artificial Opening (ICD-10-PCS; 2016-04-20)
DX: J96.21 Acute and chronic respiratory failure with hypoxia (principal); I50.23 Acute on chronic systolic (congestive) heart failure; J44.1 Chronic obstructive pulmonary disease with (acute) exacerbation; I13.0 Hypertensive heart and chronic kidney disease with heart failure and stage 1 through stage 4 chronic kidney disease, or unspecified chronic kidney disease; J98.11 Atelectasis; E66.2 Morbid (severe) obesity with alveolar hypoventilation; S37.29XA Other injury of bladder, initial encounter; D62 Acute posthemorrhagic anemia; J96.22 Acute and chronic respiratory failure with hypercapnia; I25.10 Atherosclerotic heart disease of native coronary artery without angina pectoris; R10.12 Left upper quadrant pain; E11.22 Type 2 diabetes mellitus with diabetic chronic kidney disease; I08.3 Combined rheumatic disorders of mitral, aortic and tricuspid valves; I27.2 Other secondary pulmonary hypertension; K21.9 Gastro-esophageal reflux disease without esophagitis; N18.3 Chronic kidney disease, stage 3 (moderate); Y84.6 Urinary catheterization as the cause of abnormal reaction of the patient, or of later complication, without mention of misadventure at the time of the procedure; Z87.11 Personal history of peptic ulcer disease; Z95.0 Presence of cardiac pacemaker; Z95.1 Presence of aortocoronary bypass graft; Z87.891 Personal history of nicotine dependence

== ENCOUNTER 2016-05-07 00:03 | Inpatient (IN) | payer MEDICARE, OTHER ==
[~2016-05-07] VITALS: Ht 172.7 cm; Wt 104.8 kg
--- NOTE | ~2016-05-07 | OP ---
PATIENT NAME: HÉCTOR GRAY MEDICAL RECORD: [id number] :43 LOCATION:D.ICU D.2310 ADMISSION DATE:05/07/16 SURGEON: ERICKSON GRIGGS MD DATE OF OPERATION: 05/09/2016 PREOPERATIVE DIAGNOSES: 1. Need of central venous access for central venous monitoring. 2. Pneumonia. 3. Acute renal failure. 4. Hyperkalemia. 5. Generalized weakness. POSTOPERATIVE DIAGNOSES: 1. Need of central venous access for central venous monitoring. 2. Acute renal failure. 3. Hyperkalemia. 4. Generalized weakness. PROCEDURE: Insertion of right supraclavicular subclavian triple-lumen central venous catheter. SURGEON: Erickson Griggs MD SCRAP PILER: None. BLOOD LOSS: Minimal. ANESTHESIA: Local. COMPLICATIONS: None. OPERATIVE COURSE: The patient was seen in his ICU bed. He was positioned in the Trendelenburg position. The entire procedure was performed in the presence of a nurse. The right neck was sterilely prepped and draped. Local anesthetic was used to infiltrate the skin and subcutaneous tissues at the base of the right neck. The right subclavian vein was percutaneously accessed in an antegrade supraclavicular fashion. A guidewire passed easily. A small skin araceli was accomplished. A vessel dilator was used to dilate a subcutaneous tract. A 16-cm triple lumen central venous catheter was inserted to the hub. It was sutured in place times 3. All lumens flushed easily and aspirated dark, nonpulsatile blood. A stat portable chest x-ray is pending. The site was sterilely dressed. TRANSINT:[id number] Voice Confirmation ID: [id number] DOCUMENT ID: [id number] ERICKSON GRIGGS MD CC: [id number] DICTATION DATE: 05/09/161745 [employer] BI DEVELOPER: 05/09/162047 ADM IN [facility] [address] [place] [address]
[~2016-05-07 00:03] MED LIST changes: +BROVANA15 MCG/2 M INH; +BUMEX 1 MG TAB1 MG PO; +DIOVAN80 MG PO; +K-TAB10 MEQ PO; +LIBRAX CAPSULE1 CAP PO; +MUCINEX DM ER1 EAC1 PO; +NYSTATIN ORAL SU5 ML PO; +OS-CAL500 MG PO; +PREDNISONE20 MG PO; +PULMICORT0.5 MG/21 UPD; +REVATIO20 MG PO
[2016-05-07 01:03] LABS: BASOPHILS 0.1 % (0.0-2.0); EOSINOPHILS 0.1 % (0-7); HEMATOCRIT 30.1 % (42.0-54.0); HEMOGLOBIN 9.2 g/dL (13.5-17.5); IMMATURE GRANULOCYTES 0.6 % (0-5); LYMPHOCYTES 2.4 % (15-50); MCH 24.9 pg (26.0-34.0); MCHC 30.6 g/dL (31.0-37.0); MCV 81.4 fL (80.0-100.0); MEAN PLATELET VOLUME 9.5 fL (7.4-10.4); MONOCYTES 2.5 % (2-11); NEUTROPHILS 94.3 % (40-80); PLATELET COUNT 135 10x3/uL (130-400); RDW 19.2 % (11.5-14.5); WBC 12.5 10x3/uL (4.8-10.8)
[2016-05-07 01:30] LABS: ALBUMIN 3.3 g/dL (3.4-5.0); ANION GAP 11.7 mmol/L (8-16); BILIRUBIN - TOTAL 0.4 mg/dL (0.2-1.3); CALCIUM 8.6 mg/dL (8.5-10.1); CARBON DIOXIDE 30.9 mmol/L (21.0-32.0); PROTEIN - SERUM 5.9 g/dL (6.4-8.2); TROPONIN-I 0.049 ng/mL (0.000-0.060)
[2016-05-07 01:32] LABS: POTASSIUM - SERUM 7.6 mmol/L (3.5-5.1)
[2016-05-07 03:15] LABS: CKMB 4.6 U/L (0.0-3.6); CREATINE KINASE 194 UL (21-232); TROPONIN-I 0.055 ng/mL (0.000-0.060)
[2016-05-07 04:02] VITALS: BMI 35.0
[2016-05-07 04:40] VITALS: BP 93/32
--- NOTE | 2016-05-07 07:05 | NUR ---
RECEIVED REPORT. ASSUMED CARE OF PATIENT. CALL LIGHT WITHIN REACH. PATIENT ALERT/ORIENTED AT THIS TIME REQUIRING FREQUENT CUES AND REMINDERS. IV FLUIDS INFUSING ORDERED. CALL LIGHT WITHIN REACH. RESP EVEN AND UNLABORED. NO ACUTE DISTRESS NOTED. TELEMETRY APPLIED AT THIS TIME.
[2016-05-07 08:00] VITALS: BP 101/30
[2016-05-07 08:47] LABS: BASOPHILS 0.1 % (0.0-2.0); EOSINOPHILS 0.3 % (0-7); HEMOGLOBIN 8.2 g/dL (13.5-17.5); IMMATURE GRANULOCYTES 0.8 % (0-5); MCHC 30.4 g/dL (31.0-37.0); MCV 82.3 fL (80.0-100.0); MEAN PLATELET VOLUME 9.5 fL (7.4-10.4); NEUTROPHILS 92.8 % (40-80); PLATELET COUNT 130 10x3/uL (130-400); RBC 3.28 10x6/uL (4.20-6.10); RDW 19.3 % (11.5-14.5)
[2016-05-07 09:00] LABS: ALBUMIN 2.6 g/dL (3.4-5.0); ALKALINE PHOSPHATASE 76 U/L (46-116); ALT (SGPT) 60 U/L (10-68); CALC OSMOLALITY 306 mosm/kg (275-300); CALCIUM 8.9 mg/dL (8.5-10.1); CARBON DIOXIDE 30.2 mmol/L (21.0-32.0); CHLORIDE - SERUM 103 mmol/L (98-107); CKMB 4.8 U/L (0.0-3.6); CREATINE KINASE 186 UL (21-232); CREATININE - SERUM 3.8 mg/dL (0.6-1.3); GLUCOSE 74 mg/dL (74-106); MAGNESIUM - SERUM 2.6 mg/dL (1.8-2.4); PROTEIN - SERUM 5.5 g/dL (6.4-8.2); SODIUM 138 mmol/L (136-145); TROPONIN-I 0.058 ng/mL (0.000-0.060); UREA NITROGEN 101 mg/dL (7-18); eGFR NON AFRICAN AMERICAN 17 mL/min (90-120)
[2016-05-07 09:06] LABS: POTASSIUM - SERUM 6.6 mmol/L (3.5-5.1)
[2016-05-07 12:00] VITALS: BP 131/34
--- NOTE | 2016-05-07 12:09 | NUR ---
16FR GALVEZ PLACED VIA STERILE TECHNIQUE WITH MINIMAL DIFFICULTY PASSING PROSTATE. 600ML CLEAR YELLOW URINE RETURNED TO DRAINAGE BAG VIA GRAVITY UPON INSERTION OF GALVEZ. PATIENT TOLERATED GALVEZ PLACEMENT WELL. NO DISTRESS.
[2016-05-07 12:33] LABS: APPEARANCE CLEAR (CLEAR); COLOR YELLOW (YELLOW)
[2016-05-07 12:34] LABS: BILIRUBIN NEGATIVE (NEGATIVE); GLUCOSE NEGATIVE (NEGATIVE); KETONE NEGATIVE (NEGATIVE); LEUKOCYTE ESTERASE NEGATIVE (NEGATIVE); NITRITE NEGATIVE (NEGATIVE); PROTEIN NEGATIVE (NEGATIVE); UROBILINOGEN NORMAL (NORMAL)
[2016-05-07 12:35] LABS: BACTERIA FEW /hpf (NONE SEEN); EPITHELIAL CELLS OCC /hpf (0-5); RED CELLS - URINE OCC /hpf (0-5); WHITE CELLS - URINE OCC /hpf (0-5)
[2016-05-07 12:36] LABS: CREATININE - URINE 48.7 mg/dL (30-125); PROTEIN - URINE 27.5 mg/dL (0.0-11.9)
--- NOTE | 2016-05-07 14:47 | NUR ---
PATIENT PULLED 20 GAUGE TO RIGHT AC OUT ON ACCIDENT. CATHETER TIP INTACT. 2X2 APPLIED AND SECURED WITH TAPE. NO BLEEDING FROM SITE. 20 GAUGE IV PLACED TO LEFT FOREARM X 1 STICK BY GUS ROLDAN RN. GOOD BLOOD RETURN, EASY FLUSH. TAPED, DATED AND SECURED. TOLERATED IV PLACEMENT WELL. NO DISTRESS.
--- NOTE | 2016-05-07 14:48 | NUR ---
PATIENT ASSISTED TO RESTROOM AT THIS TIME. STOOL SAMPLE COLLECTED
[2016-05-07 15:22] LABS: BASOPHILS 0.1 % (0.0-2.0); EOSINOPHILS 0.5 % (0-7); HEMATOCRIT 28.5 % (42.0-54.0); HEMOGLOBIN 8.7 g/dL (13.5-17.5); IMMATURE GRANULOCYTES 0.7 % (0-5); LYMPHOCYTES 2.3 % (15-50); MCH 25.1 pg (26.0-34.0); MCHC 30.5 g/dL (31.0-37.0); MCV 82.1 fL (80.0-100.0); MEAN PLATELET VOLUME 9.7 fL (7.4-10.4); MONOCYTES 3.4 % (2-11); PLATELET COUNT 138 10x3/uL (130-400); RBC 3.47 10x6/uL (4.20-6.10); RDW 19.3 % (11.5-14.5); WBC 9.8 10x3/uL (4.8-10.8)
[2016-05-07 16:00] VITALS: BP 94/37
--- NOTE | 2016-05-07 16:30 | NUR ---
PER PATIENTS REQUEST, PAGED BECAUSE SHE IS REQUESTING HE COME BACK AND SPEAK WITH HER BECAUSE SHE WAS NOT HERE DURING HIS ROUNDS, RETURNED CALL AND STATED HE HAS ALREADY LEFT AND IT . THANKED HIM FOR RETURNING CALL AND NOTIFIED PATIENTS THAT HAD ALREADY LEFT THE FACILITY AND WOULD NOT BE RETURNING THIS EVENING.
[2016-05-07 16:37] LABS: CALCIUM 8.5 mg/dL (8.5-10.1); CARBON DIOXIDE 28.1 mmol/L (21.0-32.0); CHLORIDE - SERUM 105 mmol/L (98-107); CKMB 4.4 U/L (0.0-3.6); CREATINE KINASE 193 UL (21-232); CREATININE - SERUM 3.1 mg/dL (0.6-1.3); SODIUM 142 mmol/L (136-145); TROPONIN-I 0.051 ng/mL (0.000-0.060); UREA NITROGEN 93 mg/dL (7-18); eGFR NON AFRICAN AMERICAN 21 mL/min (90-120)
[2016-05-07 16:44] LABS: CALC OSMOLALITY 309 mosm/kg (275-300); GLUCOSE 60 mg/dL (74-106); POTASSIUM - SERUM 5.5 mmol/L (3.5-5.1)
--- NOTE | 2016-05-07 18:46 | NUR ---
RESTING IN BED WITH EYES OPEN. AT BEDSIDE. CALL LIGHT WITHIN REACH. COMPLETED BLOOD TRANSFUSION. NO TRANSFUSION REACTIONS. NO DISTRESS.
--- NOTE | 2016-05-07 19:50 | NUR ---
RESUMED CARE OF PT, LYING IN BED RESPIRATIONS EVEN AND UNLABORED ON 4LPM VIA NC. 94 SR WITH BBB ON TELEMETRY. FOELY TO GRAVITY. LEFT FOREARM INFUSING NS @ 125. DR. JOSUE AT BEDSIDE. WILL CONTINUE TO MONITOR. CALL LIGHT IN REACH. SEE NURSE ASSESSMENT.
[2016-05-07 20:00] VITALS: BP 108/55
--- NOTE | 2016-05-07 21:31 | NUR ---
DR. THURSTON PAGED FOR TEMP OF 101.8. AWAITING CALL BACK.
--- NOTE | 2016-05-07 21:41 | NUR ---
NEW ORDERS RECEIVED, PLUS A REQUEST TO CALL DR. BANEGAS ABOUT ANTIBIOTIC THERAPY FOR PNEUMONIA. AWAITING CALL BACK FROM DR. BANEGAS.
[2016-05-08] VITALS (25 sets, daily range): BP systolic 77–146; BP diastolic 39–94; Ht 172.7 cm; Wt 104.8 kg
[2016-05-08 06:19] LABS: BASOPHILS 0 % (0.0-2.0); EOSINOPHILS 0.3 % (0-7); HEMATOCRIT 29.1 % (42.0-54.0); HEMOGLOBIN 9.1 g/dL (13.5-17.5); IMMATURE GRANULOCYTES 0.5 % (0-5); LYMPHOCYTES 2.6 % (15-50); MCH 25.8 pg (26.0-34.0); MCHC 31.3 g/dL (31.0-37.0); MCV 82.4 fL (80.0-100.0); MEAN PLATELET VOLUME 9.7 fL (7.4-10.4); MONOCYTES 1.8 % (2-11); NEUTROPHILS 94.8 % (40-80); PLATELET COUNT 125 10x3/uL (130-400); RBC 3.53 10x6/uL (4.20-6.10); RDW 19.2 % (11.5-14.5); WBC 8.8 10x3/uL (4.8-10.8)
[2016-05-08 06:50] LABS: ANION GAP 12.4 mmol/L (8-16); CALCIUM 8.1 mg/dL (8.5-10.1); CARBON DIOXIDE 28.3 mmol/L (21.0-32.0); CREATININE - SERUM 3.5 mg/dL (0.6-1.3); PHOSPHOROUS 4.8 mg/dL (2.5-4.9); POTASSIUM - SERUM 4.7 mmol/L (3.5-5.1)
--- NOTE | 2016-05-08 08:02 | NUR ---
PT SITTING UP IN BED O2 SATS 81% ON 4L NC. PT BACK ON BIPAP WITH O2 SAT OF 91%
--- NOTE | 2016-05-08 15:11 | NUR ---
PT AT BEDSIDE. REQUESTING PT TO HAVE BUMEX AND TO BE SUCTIONED. PT DOES HAVE CRACKLES THROUGHOUT AND DID NOT SOUND WET THIS AM DURING AM ASSESSMENT. PAGED EJ SNOWDEN WITH RENAL. TRIED TO SUCTION PT BUT DID NOT GET ANY SPUTUM UP. SUCTION IS SET UP JUST IN CASE HE NEEDS IT. PT SEEMS MORE CONFUSED THAN THIS AM WELL
--- NOTE | 2016-05-08 15:43 | NUR ---
CALLED TO ROOM PT O2 SATS 84% ON NC. PUT PT BIPAP ON AND STILL CANT GET ABOUT 88%. PT VERY HARD TO ARROUSE AND STILL CRACKLES/ WET SOUNDING THROUGHOUT ALL LOBES. CALLED DR CORCORAN OFFICE AND REQUESTED TO SPEAK WITH HIM. MARLEN HIS NURSE ANSWERED AND SAID SHE WILL TALK TO DR CORCORAN AND CALL ME BACK
--- NOTE | 2016-05-08 16:01 | NUR ---
ORDERED ABGS PER DR CORCORAN. AND REPORT TO DR HALL. DONE SAID TO CALL RENAL ABOUT CONGESTION. DR STOKES SAID TO DC FLUIDS AND GIVE ONE TIME IV LASIX AND CHEST XR WILL ORDER
--- NOTE | 2016-05-08 16:26 | NUR ---
PT HAS BECOME UNRESPONSIVE. DR HALL CAME TO VISIT PT. SAID TO TRANSFER TO ICU.
--- NOTE | 2016-05-08 16:55 | NUR ---
TRANSFERRED PT TO ICU ROOM 2310. CALLED REPORT TO KIERRA. TOOK PT BY CT BEFPRE UNIT TO RULE OUT STROKE.
--- NOTE | 2016-05-08 17:28 | NUR ---
1645 PT RECIEVED FROM THE FLOOR VIA BED.. RESPIRATORY WITH PT AND PT PLACED ON BIPAP O2 AT 80% 20/10 RATE 16.. SAT IS NOW 98% .. PT ARRIVED WITH PT.. PT HAS BEEN TAKEN TO THE CT SCANNER PRIOR TO ADMISSION TO THE ICU.. .. SEE FLOW SHEET FOR ADMISSION ICU VS..PT IS OBTUNDED WITHOUT RESPONSES TO VERBAL STIMULI WILL AROUSED TO NOXIOUS STIMULI.. 1650 DR HALL CALLED WITH RESULTS OF THE CT SCAN.. ORDERS TO CONSULT DR JONES RECIEVED... ER CALLED AND INFORMED OF CT RESULTS.. 1700 PT IS TAKEN TO THE ER FOR AR SAVES PROTOCOL.. REMAINS AT PT BEDSIDE WITH Ankita BOOTH..
--- NOTE | 2016-05-08 18:22 | NUR ---
[address] PT [address] [facility] .. PLACED ON BIPAP O2.. PT WILL OPEN EYES AND RESPOND TO STIMULI BUT DOES NOT FOLLOW VERBAL COMMANDS..
--- NOTE | 2016-05-08 18:26 | NUR ---
LATE ENTRY: 1415- PT ON BIPAP ARROUSES TO MY VOICE, PT DENIES NEEDS AT THIS TIME WILL CONT TO MONITOR. 1445- WENT TO GIVE PT 1500 MEDICATIONS, PT SEEMS LETHARGIC AND NOT WANTING TO TAKE MEDICATIONS. KEEPS SAYING "NO". IS NOW AT BEDSIDE AND SUGGESTS WE TRY AGAIN LATER. PT SOUNDS MORE CONGESTED THAN THIS AM. SET UP SUCTION AND TRIED TO SUCTION PT, NO SUCCESS. SUCTION AT BEDSIDE PRN. PAGED EJ RENAL RN SURGERY ICU TO ASK ABOUT LASIX OR BUMEX AND DC FLUIDS. 1545- PT O2 SATS 84% ON 5L NC. SWITCHED TO BIPAP ONLY GET UP TO 88%. PT VERY HARD TO ARROUSE. CALLED DR CORCORAN OFFICE. 1600- OFFICE CALLS BACK AND SAYS TO ORDER ABGS AND GIVE RESULTS TO ARFAEL. CALL RENAL FOR ORDER FOR FLUIDS. CALLED DIVYA HE SAID TO DC FLUIDS AND GIVE ONE TIME 40MG LASIX IV AND ORDER CHEST XR DONE. 1620- AKANKSHA WITH RESPIRATORY DRAWING ABGS, LAB HERE DRAWING BLOOD. DC FLUIDS AND GIVING LASIX. DR HALL CAME INTO ROOM AND SAID TO SEND PT TO ICU. 1630- CALLED REPORT TO KIERRA IN ICU. THEN TOOK PT TO CT PER DR HALL ORDER TO RULE OUT CVA. THEN TRANSFERRED TO ROOM 2310.
--- NOTE | 2016-05-08 18:37 | NUR ---
183 DR WILL WEST.. BP IS LOW WITH SYS 82 .. FAMILY AT THE BEDSIDE...
--- NOTE | 2016-05-08 19:04 | NUR ---
[address] JOHN AND HE HAS DEFERED CRITICAL CARE MEDS TO DR HALL .. DR HALL HAS STARTED D5NS AT 100CC/HR... AND LEVOPHED STARTED AT 1MCG FOR BP.. KANDY FRAGOSO IN UNIT SPEAKING WITH DR SOLIS RE PT TRANSFER TO [facility] NEURO UNIT..
--- NOTE | 2016-05-08 19:30 | NUR ---
REPORT RECEIVED AND CARE ASSUMED. INITAL SHIFT ASSESSMENT COMPLETED. SEE FLOWSHEET. FAMILY AT BEDSIDE. AWAITING CALL FROM [facility] PENDING TRANSFER. PT IS BEING MONITORED PER STANDARD ICU PROTOCOL WITH ALL ALARMS SET AND VERIFIED. CURRENTLY ON LEVOPHED 1MCG /MIN AND BIPAP 80%
--- NOTE | 2016-05-08 20:00 | NUR ---
SPOR DECREASED TO MID 80'S. BIPAP INCREASED TO 100%. RT AT BEDSIDE AND PT MOVED IN MORE UPRIGHT POSITION IN BED. SPO2 IMMEDIATELY RETURNED TO MID 90'S.
--- NOTE | 2016-05-08 21:00 | NUR ---
SPOKE WITH BRADEN RN AT [facility] IN BED MANAGEMENT WHO STATES SHE CAN NOT SAY IF THERE IS AN ICU BED AVAILABLE YET BUT IS REQUESTING INFORMATION. THIS INFORMATION WAS COMMUNICATED TO FAMILY WHO REMAINS AT BEDSIDE AND HAVE BEEN KEPT ABREAST OF PENDING TRANSFER AND ALL CALLS MADE.
--- NOTE | 2016-05-08 21:15 | NUR ---
PT IS MUCH MORE ALERT AT THIS TIME. HE WAS ABLE TO COMMUNICATE TO HE WISHES TO REMAIN AT [facility] AND HAS DETERMINED THAT SHE NO LONGER WISHES TO TRANSFER HIM TO [facility]. [facility] NOTIFIED THAT WE NO LONGER DESIRE TRANSFER.
--- NOTE | 2016-05-08 21:25 | NUR ---
SPOKE WITH DR. JONES TO LET HIM KNOW FAMILY IS DESIRING HIM TO SEE PATIENT AND PT IS NO LONGER PENDING TRANSFER. NOTIFIED HIM MRI WAS NOT DONE DUE TO PPM
--- NOTE | 2016-05-08 23:00 | NUR ---
SHIFT REASSESSMENT COMPLETED. PT IS NOW ON 60% BIPAP AND ON 3MCG LEVOPHED. HAS TITRATED AND WEANED PER B/P. REMAINS AT BEDSIDE.
[2016-05-09] VITALS (46 sets, daily range): BP systolic 89–139; BP diastolic 35–89
--- NOTE | 2016-05-09 01:00 | NUR ---
CONTINUE TO TITRATE LEVOPHED PER APR. PA REMAINS EASILY AWAKEN AND ORIENTED X 4. CONTINUES ON BIPAP AT 60%
--- NOTE | 2016-05-09 03:00 | NUR ---
SHIFT REASSESSMENT COMPLETED. NO SIGNIFICANT CHANGE SINCE LAST ASSESSMENT.
[2016-05-09 03:48] LABS: BASOPHILS 0 % (0.0-2.0); EOSINOPHILS 0 % (0-7); HEMATOCRIT 29.3 % (42.0-54.0); HEMOGLOBIN 8.9 g/dL (13.5-17.5); IMMATURE GRANULOCYTES 0.2 % (0-5); MCH 25.5 pg (26.0-34.0); MCHC 30.4 g/dL (31.0-37.0); MEAN PLATELET VOLUME 9.8 fL (7.4-10.4); MONOCYTES 0.7 % (2-11); NEUTROPHILS 98.1 % (40-80); PLATELET COUNT 112 10x3/uL (130-400); RBC 3.49 10x6/uL (4.20-6.10); RDW 18.9 % (11.5-14.5)
[2016-05-09 03:56] LABS: ANION GAP 11.4 mmol/L (8-16); CALCIUM 7.5 mg/dL (8.5-10.1); CARBON DIOXIDE 28.5 mmol/L (21.0-32.0); CREATININE - SERUM 2.9 mg/dL (0.6-1.3); POTASSIUM - SERUM 3.9 mmol/L (3.5-5.1)
--- NOTE | 2016-05-09 05:00 | NUR ---
I&O COMPLETED. PT SLEEPING WELL
--- NOTE | 2016-05-09 07:00 | NUR ---
ASSESSMENT COMPLETE. NO CO AT TIME. BIPAP ON 60 PERCENT.
--- NOTE | 2016-05-09 10:30 | NUR ---
NUTRITION MONITORING & EVAL CHART REVIEWED. PT NOW IN ICU ON BIPAP. ISOLATION. NURSING REPORTS PT WITH NO PO INTAKE THIS AM SECONDARY TO BIPAP. RD FOLLOWING
--- NOTE | 2016-05-09 11:00 | NUR ---
PLACED ON 10 L OXYMIZER.
--- NOTE | 2016-05-09 11:22 | NUR ---
Patient Name: HÉCTOR GRAY Admission Status: ER Accout number: [id number] Admission Date: 05-07-2016 : 1945 Admission Diagnosis:WEAKNESS Attending: IRMA Current LOS: 2 Anticipated DC Date: Planned Disposition: Inpatient Rehab Primary Insurance: MEDICARE A & B PLANNED EXTERNAL PROVIDER: [facility] INPATIENT [facility] Discharge Planning Comments: * Is the patient Alert and Oriented? Yes 0 * How many steps to enter\exit or inside your home? 8-9 0 * PCP DR. CORCORAN 0 * Pharmacy [facility] [address] 0 * Preadmission Environment Home with Family 0 * ADLs Independent 0 * Equipment BIPAP Nebulizer Oxygen Walker 0 * Other Equipment HOME AND PORTABLE OXYGEN [facility] - MEDICAL EQUIPMENT PROVIDER PREFERENCE 0 * List name and contact numbers for known caregivers / representatives who currently or will assist patient after discharge: RYLEE GRAY, SPOUSE, 0 * Community resources currently utilized None 0 * Please name any agencies selected above. NONE 0 * Additional services required to return to the preadmission environment? Yes * Can the patient safely return to the preadmission environment? Yes 0 * Has this patient been hospitalized within the prior 30 days at any hospital? Yes 0 CM MET WITH PT IN ROOM TO DISCUSS DISCHARGE PLANNING AND NEEDS. PT REPORTS LIVING AT HOME INDEPENDENTLY WITH HIS SPOUE. PT HAS MEDICAL EQUIPMENT FROM [facility] AND NO OUTSIDE SERVICES ASSISTING IN THE HOME. CM DISCUSSED AVAILABILITY OF HOME HEALTH, REHAB SERVICES AND MEDICAL EQUIPMENT. PT REPORTS UNKNOWN DISCHARGE NEEDS; PT DID NOT GET A CHANCE TO GO TO OUTPATIENT REHAB AT THE [facility] OFFICE AND BELIEVES HE WILL NEED REHAB OR HOME HEALTH. CM DISCUSSED REHAB OPTIONS. PT WOULD CONSIDER INPATIENT REHAB AT [place] OR HOME HEALTH AT HOME. CM EXPLAINED THAT CM WILL BEGIN THE PROCESS OF SENDING REFERRALS WHEN PT'S MEDICAL STATUS IS BECOMING STABLE AND HIS NEEDS ARE KNOWN. PT PREFERS TO DISCHARGE HOME WITH SPOUSE AND WOULD ACCEPT HOME HEALTH. PT WOULD CONSIDER INPATIENT REHAB AT [place] IF NEEDED. CM TO FOLLOW AND ASSIST NEEDED. Bone Char Kiln Tender: Gilles Pascual
--- NOTE | 2016-05-09 17:30 | NUR ---
DR GRIGGS HERE. CVL PLACED.
--- NOTE | 2016-05-09 19:00 | NUR ---
REPORT RECEIVED AND CARE ASSUMED. AT BEDSIDE. PT AAOX4. INITIAL SHIFT ASSESSMENT COMPLETED SEE FLOWSHEET. IV CURRENTLY INFUSING TO R FOREARM PIV AWAITING CLEARANCE TO RIGHT CVL ALL LINES DATED AND ARE CURRENT. ALL ALARMS VERIFED AND SET. PT BEING MONITORED PER STANDARD ICU PROTOCOL.
--- NOTE | 2016-05-09 19:43 | NUR ---
SPOKE WITH RADIOLOGY WHO VERBALLY CONFIRMS, PER DR. NOLEN, THAT CVL IS OK FOR USE. ALL NEW LINES AND FLUIDS WILL BE HUNG WELL CVP.
--- NOTE | 2016-05-09 21:00 | NUR ---
VISITOR AT BEDSIDE. PT VISITED FREELY. CURRENTLY ON 8L OXIMIZER TOLERATING WELL.
--- NOTE | 2016-05-09 23:00 | NUR ---
SHIFT REASSESSMENT COMPLETED. SEE FLOWSHEET. PT ATE 100% OF HS SNACK OF SANDWICH AND PUDDING. ON 8L OXIIZER NOW PLACED ON 40% BIPAP. HS CARE DONE. DENTURES CLEANED AND PLACED IN DENTURE CUP. PIV TO RIGHT FOREARM REMOVED. TIP INTACT SLIGHT OOZING TO RIGHT CVL NOTED BUT NOT ACTIVITY OOZING NOW.
[2016-05-10] VITALS (24 sets, daily range): BP systolic 101–175; BP diastolic 41–97
--- NOTE | 2016-05-10 01:00 | NUR ---
PT NOW BACK ON 8L OXIMIZER. PT WANTING TO DRINK AND REST FROM BIPAP. DENIES NEEDS
--- NOTE | 2016-05-10 01:00 | NUR ---
PT SLEEPIN ON BIPAP. NO LONGER PULLING AT LINES AND EQUIPMENT, THOUGH STILL CONFUSED. WILL MONITOR
[2016-05-10 04:01] LABS: BASOPHILS 0 % (0.0-2.0); EOSINOPHILS 0 % (0-7); HEMATOCRIT 29.3 % (42.0-54.0); HEMOGLOBIN 8.9 g/dL (13.5-17.5); IMMATURE GRANULOCYTES 0.4 % (0-5); LYMPHOCYTES 1.3 % (15-50); MCH 25.2 pg (26.0-34.0); MCHC 30.4 g/dL (31.0-37.0); MEAN PLATELET VOLUME 9.7 fL (7.4-10.4); MONOCYTES 1.1 % (2-11); NEUTROPHILS 97.2 % (40-80); PLATELET COUNT 111 10x3/uL (130-400); RBC 3.53 10x6/uL (4.20-6.10); RDW 18.7 % (11.5-14.5); WBC 9.9 10x3/uL (4.8-10.8)
[2016-05-10 04:21] LABS: ALBUMIN 2.5 g/dL (3.4-5.0); ANION GAP 10.4 mmol/L (8-16); BILIRUBIN - TOTAL 0.27 mg/dL (0.2-1.3); CALCIUM 7.9 mg/dL (8.5-10.1); CARBON DIOXIDE 28.9 mmol/L (21.0-32.0); CREATININE - SERUM 2.3 mg/dL (0.6-1.3); POTASSIUM - SERUM 4.3 mmol/L (3.5-5.1); PROTEIN - SERUM 5.8 g/dL (6.4-8.2)
--- NOTE | 2016-05-10 09:51 | NUR ---
NUTRITION MONITORING & EVAL CHART REVIEWED, PT VISIT. OFF BIPAP. NURSING REPORTS GOOD INTAKE RENAL DIET. WILL CONTINUE TO PROVIDE DIET, MONITOR PO INTAKE, PT PROGRESS. RD FOLLOWING
--- NOTE | 2016-05-10 15:30 | NUR ---
BATH AND LINEN CHANGE COMPLETED, DYSPNEA ON EXERTION NOTED, OXYMIZER IN USE, SAT 96%, REPOSITIONED FOR COMFORT, AT BEDSIDE NO NEEDS AT THIS TIME
--- NOTE | 2016-05-10 19:00 | NUR ---
REPORT RECEIVED AND ASSESSMENT COMPLETED. SEE FLOWSHEET FOR FULL DETAILS. FAMILY AT BEDSIDE. DISCUSSED CURRENT STATUS. NO CHANGES ST THIS TIME. VSS. WILL CONTINUE TO MONITOR.
--- NOTE | 2016-05-10 21:00 | NUR ---
2100 MEDS GIVEN. NO CHANGES IN STATUS AT THIS TIME. VSS. WILL MONITOR.
--- NOTE | 2016-05-10 23:00 | NUR ---
REASSESSMENT COMPLETED. PT BEGAN TO DESAT ON OXYMISER, AND BECAME VERY CONFUSED. PLACED ON BIPAP AND RESPIRATORY INCREASED FIO2 TO 50% TO ACHEIVE A SAT OF 93%. SEE FLOWSHEET FOR FULL ASSESSMENT DETAILS. VSS AT THIS TIME. WILL CONTINUE TO MONITOR FOR CHANGES
[2016-05-11] VITALS (24 sets, daily range): BP systolic 121–196; BP diastolic 38–97
--- NOTE | 2016-05-11 01:00 | NUR ---
pt still confused. has stopped removing bipap and pulling lines at this time. will monitor
--- NOTE | 2016-05-11 03:00 | NUR ---
reassessment completed. see flowsheet.
--- NOTE | 2016-05-11 05:00 | NUR ---
pt aleeping in room. vss. bed in low position. side rails up x 3. no other changes at this time. will monitor.
[2016-05-11 06:22] LABS: BASOPHILS 0 % (0.0-2.0); EOSINOPHILS 0 % (0-7); HEMATOCRIT 29.9 % (42.0-54.0); HEMOGLOBIN 8.9 g/dL (13.5-17.5); IMMATURE GRANULOCYTES 0.7 % (0-5); LYMPHOCYTES 1.7 % (15-50); MCH 24.7 pg (26.0-34.0); MCHC 29.8 g/dL (31.0-37.0); MCV 82.8 fL (80.0-100.0); MEAN PLATELET VOLUME 9.8 fL (7.4-10.4); MONOCYTES 1.8 % (2-11); NEUTROPHILS 95.8 % (40-80); PLATELET COUNT 130 10x3/uL (130-400); RBC 3.61 10x6/uL (4.20-6.10); RDW 18.7 % (11.5-14.5); WBC 7.6 10x3/uL (4.8-10.8)
[2016-05-11 06:47] LABS: ANION GAP 9.7 mmol/L (8-16); CALCIUM 8.2 mg/dL (8.5-10.1); CARBON DIOXIDE 30.3 mmol/L (21.0-32.0); CREATININE - SERUM 1.9 mg/dL (0.6-1.3); MAGNESIUM - SERUM 1.9 mg/dL (1.8-2.4)
--- NOTE | 2016-05-11 07:50 | NUR ---
PT PLACED ON 9L OXYMIZER FROM BIPAP SO THAT HE COULD EAT BREAKFAST. SATS 92%.
--- NOTE | 2016-05-11 10:28 | NUR ---
RESPIRATORY THERAPY IN ROOM FOR BREATHING TREATMENT. PT PLACED BACK ON BIPAP AT THIS TIME BECAUSE PATIENT BEGAN TO DESAT ON OXYMIZER WHILE GETTING BREATHING TREATMENT.
--- NOTE | 2016-05-11 12:17 | NUR ---
RYLEE CALLED. UPDATED ON CURRENT ACTIVITIES AND MOST RECENT LAB RESULTS. PT SLEEPING AT THIS TIME AND IS STILL ON BIPAP.
--- NOTE | 2016-05-11 15:00 | NUR ---
PT GIVEN COMPLETE BED BATH AND LINEN CHANGE BY ALEX SHRESTHA. AT BEDSIDE.
[2016-05-11 17:17] LABS: CKMB 3.5 U/L (0.0-3.6); CREATINE KINASE 127 UL (21-232)
[2016-05-11 17:24] LABS: TROPONIN-I 0.284 ng/mL (0.000-0.060)
--- NOTE | 2016-05-11 19:05 | NUR ---
PT BECAME SHORT OF BREATH SHORTLY AFTER BATH. WAS PLACED BACK ON BIPAP. PT CONTINUED TO HAVE SHORTNESS OF BREATH AND WAS ASHY IN COLOR. ABG'S ORDERED. CHEST XRAY ORDERED. DR HALL NOTIFIED. DR CORCORAN NOTIFIED. PT ALSO EXHIBITED CARDIAC IRREGULARITY. EKG AND CARDIAC ENZYMES ORDERED. DR CORCORAN CAME TO SEE PATIENT AND SPEAK WITH . ASKED PT AND ABOUT CODE STATUS AND INTUBATION. PT AGREED TO INTUBATION SHOULD HE NEED IT, "BUT ONLY FOR A COUPLE OF DAYS." CARDIOLOGY WAS CONSULTED. DR FLORES IS TO COME SEE PATIENT. DOBUTREX DRIP WAS ORDERED AND STARTED AT 5MCG/KG/MIN.
--- NOTE | 2016-05-11 19:30 | NUR ---
REC'D TO CARE, SEE ELEMENTARY SCHOOL DIRECTOR. PT AWAKE, ON BIPAP 60% FIO2. CM - PACED WITH FREQ PVCS. IVFS INFUSING TO R IJTL, DSG C/D/I - SEE FLOWSHEET. PT ABD OBESE, REPOSITIONED UP IN BED TO FACILITATE DEEP BREATHING. PT COOPERATIVE, DISCUSSED PLAN FOR BREAKS FROM BIPAP TO OXYMIZER NEEDED. ALARMS ON AND C/L IN REACH.
--- NOTE | 2016-05-11 21:00 | NUR ---
NO VISITORS. RESTING QUIETLY WITH EYES CLOSED, VSS.
--- NOTE | 2016-05-11 21:45 | NUR ---
PT ALLOWED BACK TO SIT WITH PT. PT ASLEEP AT THIS TIME. VSS. NO SIGN OF DISTRESS.
--- NOTE | 2016-05-11 23:26 | NUR ---
REASSESSMENT PER FLOWSHEET, NO ACUTE CHANGES.. PT SITTING UP AT BS FOR RESP TX, GIVEN PUDDING AND ICE CREAM PER REQUEST. NO SIGN OF DISTRESS - IMPROVED COUGH NOTED. C/L IN REACH.
[2016-05-12] VITALS (15 sets, daily range): BP systolic 118–160; BP diastolic 54–75
--- NOTE | 2016-05-12 00:45 | NUR ---
PT ATE SANDWICH. I.S. INDEPENDTLY. ASSISTED BACK TO BED, BIPAP RESUMED. C/L IN REACH.
--- NOTE | 2016-05-12 03:25 | NUR ---
REASSESSMENT COMPLETE PER FLOW SHEET. VSS. NO NEW CHANGES. RESTING COMFORTABLY. WILL CONTINUE TO MONITOR.
[2016-05-12 04:17] LABS: BASOPHILS 0 % (0.0-2.0); EOSINOPHILS 0 % (0-7); HEMATOCRIT 29.1 % (42.0-54.0); HEMOGLOBIN 8.8 g/dL (13.5-17.5); IMMATURE GRANULOCYTES 0.8 % (0-5); MCH 25.1 pg (26.0-34.0); MCHC 30.2 g/dL (31.0-37.0); MCV 82.9 fL (80.0-100.0); MEAN PLATELET VOLUME 10.3 fL (7.4-10.4); MONOCYTES 2.9 % (2-11); NEUTROPHILS 94.3 % (40-80); PLATELET COUNT 136 10x3/uL (130-400); RBC 3.51 10x6/uL (4.20-6.10); RDW 18.7 % (11.5-14.5); WBC 7.5 10x3/uL (4.8-10.8)
[2016-05-12 04:39] LABS: ANION GAP 10.5 mmol/L (8-16); CALCIUM 8.3 mg/dL (8.5-10.1); CARBON DIOXIDE 30.3 mmol/L (21.0-32.0); CREATININE - SERUM 1.9 mg/dL (0.6-1.3); MAGNESIUM - SERUM 1.6 mg/dL (1.8-2.4); POTASSIUM - SERUM 3.8 mmol/L (3.5-5.1)
--- NOTE | 2016-05-12 05:40 | NUR ---
PT GIVEN COKE PER REQUEST. DENIES FURTHER NEEDS. VSS. RESTING COMFORTABLY. WILL CONTINUE TO MONITOR.
--- NOTE | 2016-05-12 08:05 | NUR ---
DR CORCORAN IN TO SEE PATIENT. PT STILL ON DOBUTREX DRIP. ASKS THAT WE HOLD LASIX.
--- NOTE | 2016-05-12 09:44 | NUR ---
ASSISTED PT BACK IN TO BED FROM CHAIR FOR ECHO. PT BECAME SHORT OF BREATH AND REQUESTED TO BE PLACED BACK ON BIPAP. PT PLACED ON BIPAP REQUESTED. O2 SATS 95%.
--- NOTE | 2016-05-12 09:50 | NUR ---
NUTRITION MONITORING & EVAL CHART REVIEWED, PT REMAINS IN ISOLATION. NURSING REPORTS PT WITH 100% INTAKE MEALS. RD FOLLOWING
--- NOTE | 2016-05-12 12:10 | NUR ---
PT SITTING UP IN CHAIR AT BEDSIDE FOR LUNCH. ON OYXMIZER AT 8L.
--- NOTE | 2016-05-12 15:55 | NUR ---
PT STILL SITTING UP IN CHAIR FROM LUNCH. READING NEWSPAPER. BEDSIDE COMMODE PROVIDED REQUESTED BY PATIENT. HAS NOT USED YET, BUT ANTICIPATES NEEDING TO. NO DISTRESS NOTED. IS ON OXYMIZER.
--- NOTE | 2016-05-12 18:06 | NUR ---
PT SITTING UP IN CHAIR AT BEDSIDE WATCHING TELEVISION. OXYMIZER ON, NO DISTRESS NOTED. CALL LIGHT IN REACH.
--- NOTE | 2016-05-12 19:00 | NUR ---
1900: Pt rec'd sitting up in chair. Pt LOCx3 alert and oreinted. Pt denies pain, tingling, numbness, nausea or vomitting. Pt breathing 02 8L via 0ximizer with RR 24-26x with SPO2 96%. Lungs with audible wheezes at with auscultation. Pt with occasional non productive coughing. S1S2 regular SR 90-100 bpm. Pt has hx of PPM, CABG, and multiple PTCAs. PPPX4 = bilat. ABD soft NT BSx4 active, White to gravity with >30 cc/hr of pink tinged UOP.
--- NOTE | 2016-05-12 21:00 | NUR ---
2100: Pt family here at bedside. Update provided. Pt remains SR 90's on CM, Oximizer 8L with [id number] with SPO2 96%. Pt with occasional non productive cough.
--- NOTE | 2016-05-12 22:00 | NUR ---
2200: Pt to bedside commode with full assist. Pt weak and states he can't stand. Pt placed on bedside commode and able to maintain balance while sitting. Pt with x1 small semi solid green/dark BM. Bed linen changed and pt assited back to bed x2 RNs. Pt tachypnea increased with movement/exertion. Pt placed on Bipap 20/10 60%.
[2016-05-13] VITALS (20 sets, daily range): BP systolic 115–156; BP diastolic 42–99
--- NOTE | 2016-05-13 | NUR ---
0000: Pt back to bedside commode with assist. Gait more steady this time, but still requires assistance with balance. Pt placed on oximizer 8L while up and then Bipap resumed after returned to bed. No change in CV/NV status. No change in IVF/UOP at this time.
--- NOTE | 2016-05-13 04:00 | NUR ---
0400: Pt resting with eyes closed. Pt remains on Bipap with RR24x with SPO2 97%. SR 90-100 bpm. No change in RESP/CV/NV status. No change in IVF/UOP.
[2016-05-13 05:02] LABS: BASOPHILS 0.1 % (0.0-2.0); EOSINOPHILS 0 % (0-7); HEMATOCRIT 27.3 % (42.0-54.0); HEMOGLOBIN 8.4 g/dL (13.5-17.5); IMMATURE GRANULOCYTES 4.4 % (0-5); LYMPHOCYTES 4.8 % (15-50); MCH 25.3 pg (26.0-34.0); MCHC 30.8 g/dL (31.0-37.0); MCV 82.2 fL (80.0-100.0); MEAN PLATELET VOLUME 9.8 fL (7.4-10.4); MONOCYTES 4.2 % (2-11); NEUTROPHILS 86.5 % (40-80); PLATELET COUNT 128 10x3/uL (130-400); RBC 3.32 10x6/uL (4.20-6.10); RDW 18.4 % (11.5-14.5); WBC 6.9 10x3/uL (4.8-10.8)
[2016-05-13 05:29] LABS: % SATURATION 24 % (15-55); IRON 46 ug/dl (35-150); TOTAL IRON BIND CAPACITY 190 ug/dl (260-445); UNSAT IRON BIND CAPACITY 144 ug/dl (150-375)
[2016-05-13 06:15] LABS: ANION GAP 12.3 mmol/L (8-16); CALCIUM 8.3 mg/dL (8.5-10.1); CARBON DIOXIDE 28.4 mmol/L (21.0-32.0); CREATININE - SERUM 1.6 mg/dL (0.6-1.3); PHOSPHOROUS 3.3 mg/dL (2.5-4.9); POTASSIUM - SERUM 3.7 mmol/L (3.5-5.1)
[2016-05-13 06:22] LABS: MAGNESIUM - SERUM 2.3 mg/dL (1.8-2.4)
--- NOTE | 2016-05-13 07:10 | NUR ---
REPORT RECD PT CARE ASSUMED. PT IS ALERT AND ORIENTED X 4. S1S2 NOTED, PT HR IS PACED PER CM. EXP WHEEZE AUSCULTATED BILAT. PT HAS OXIMIZER ON AT 8L. SCDS GALVEZ IN PLACE. VSS. SEE SHIFT ASSESSMENT FOR FURTHER DETAILS.
--- NOTE | 2016-05-13 07:35 | NUR ---
PT SITTING UP AT BEDSIDE EATING BREAKFAST AT THIS TIME.
--- NOTE | 2016-05-13 08:30 | NUR ---
PT AT BEDSIDE ASSITING PT TO CHAIR AT THIS TIME. PT SITTING COMFORTABLY ON CHAIR.
--- NOTE | 2016-05-13 09:20 | NUR ---
MEDICATIONS PASSED PER EMAR. PT TOLERATES MED PASS WELL.
--- NOTE | 2016-05-13 10:07 | NUR ---
PT REMAINS SITTING IN CHAIR. PT HAS INTERMITTENT PRODUCTIVE COUGH. PT DOES IS AND FLUTTER.
--- NOTE | 2016-05-13 12:00 | NUR ---
PT SITTING UP IN CHAIR EATING LUNCH. PT AT BEDSIDE FOR VISITATION. UPDATE PROVIDED.
--- NOTE | 2016-05-13 13:28 | NUR ---
PT ASSISTED BACK TO BED BY PT. PT PLACED BACK ON BIPAP AND IS RESTING COMFORTABLE. ALL VSS.
--- NOTE | 2016-05-13 15:00 | NUR ---
PT RESTING WITH EYES CLOSED AT THIS TIME. DR SOLIS AT BEDSIDE. UPDATE PROVIDED.
--- NOTE | 2016-05-13 17:00 | NUR ---
PT SITTING UP AT BEDSIDE EATING DINNER. PT VOICES NO OTHER NEEDS AT THIS TIME.
--- NOTE | 2016-05-13 19:00 | NUR ---
1900: Pt requested assistance to chair. Pt placed in chair with moderate assistance. Pt gait steady while standing in one position. Discussed fall risk with patient who verbalized understanding and is able to demonstrate call light use. Pt states he will call for assist if needed.
--- NOTE | 2016-05-13 20:00 | NUR ---
2000: Pt resting in chair with eyes open. Pupils SANDY+ bilat. SMCx4=bilat options trader with commands. Pt denies pain, tingling, numbness, or nausea at this time. Pt has frequent non productive cough. Lungs sounds with wheezes bilaterally with auscultation MMP and no cyanosis noted. S1S2 regular SR occasional paced beats. PPPx4=bilat. ABD soft NT BS x4, White to gravity with >30 cc/hr UOP.
--- NOTE | 2016-05-13 22:00 | NUR ---
2200: Pt remains up in chair with eyes open. Pt remains on 028L via oximizer with [id number] with SPO2 95%. IS done per RT with max TV of 1000cc achieved.
--- NOTE | 2016-05-13 22:30 | NUR ---
2230: Pt assisted to bed and placed on Bipap 20/10 60%
[2016-05-14] VITALS (27 sets, daily range): BP systolic 105–154; BP diastolic 55–80
--- NOTE | 2016-05-14 | NUR ---
0000: Pt resting in bed with eyes closed at this time. Pt remains on Bipap with RR 20x with SPo2 97%. Pt is paced on CM 90's at this time.
[2016-05-14 05:28] LABS: BASOPHILS 0.2 % (0.0-2.0); EOSINOPHILS 0 % (0-7); HEMATOCRIT 25.1 % (42.0-54.0); HEMOGLOBIN 7.6 g/dL (13.5-17.5); IMMATURE GRANULOCYTES 5.5 % (0-5); LYMPHOCYTES 3.9 % (15-50); MCHC 30.3 g/dL (31.0-37.0); MCV 82.6 fL (80.0-100.0); MONOCYTES 4.1 % (2-11); NEUTROPHILS 86.3 % (40-80); PLATELET COUNT 118 10x3/uL (130-400); RBC 3.04 10x6/uL (4.20-6.10); RDW 18.3 % (11.5-14.5)
[2016-05-14 05:29] LABS: WBC 4.6 10x3/uL (4.8-10.8)
[2016-05-14 05:41] LABS: ANION GAP 10.1 mmol/L (8-16); CALCIUM 7.9 mg/dL (8.5-10.1); CREATININE - SERUM 1.6 mg/dL (0.6-1.3); POTASSIUM - SERUM 4.1 mmol/L (3.5-5.1)
--- NOTE | 2016-05-14 06:00 | NUR ---
0600: Pt placed on 02 8L via oximizer at this time. Pt awake, alert, and oriented. Pt has no c/o at this time. Pt remains SR 60's with occasional paced beats seen on CM. No change in IVF/UOP.
--- NOTE | 2016-05-14 07:57 | NUR ---
UP IN CHAIR BESIDE BED AT THIS TIME EATING BREAKFAST. ASSISTED PT TO TRANSFER FROM BED TO CHAIR VIA MINIMAL ASSIST. NO ACUTE DISTRESS NOTED. VSS. WILL CONTINUE PLAN OF CARE.
--- NOTE | 2016-05-14 10:03 | NUR ---
UP IN CHAIR WATCHING TV AT THIS TIME. DENIES ANY NEEDS. VSS. NO ACUTE DISTRESS NOTED. WILL CONTINUE PLAN OF CARE.
--- NOTE | 2016-05-14 12:02 | NUR ---
UP IN CHAIR BESIDE BED EATING LUNCH AT THIS TIME. DENIES ANY NEEDS. CALL LIGHT IN REACH. NO ACUTE DISTRESS NOTED. WILL CONTINUE PLAN OF CARE.
--- NOTE | 2016-05-14 13:59 | NUR ---
NOTED PT REQUESTED TO STAY UP IN CHAIR BESIDE BED STATED HE WAS NOT READY TO GO TO BED YET. PT ALERT AND ORIENTED. WILL RESPECT PT REQUEST. PT DENIES ANY NEEDS. WILL CONTINUE PLAN OF CARE.
--- NOTE | 2016-05-14 15:00 | NUR ---
UP IN CHAIR BESIDE BED AT THIS TIME TALKING ON PHONE. DENIES ANY NEEDS. NO SHORTNESS OF BREATH NOTED. NO ACUTE DISTRESS NOTED. WILL CONTINUE PLAN OF CARE.
--- NOTE | 2016-05-14 16:02 | NUR ---
NOTED PT HAS ORDERS TO RECIEVE 2 U PRBC TODAY. FIRST UNIT OF PRBC INITIATED AT THIS TIME. NO ACUTE DISTRESS NOTED. CONSENTS HAVE BEEN SIGNED. PT DENIES ANY QUESTIONS OR CONCERNS. WILL CONTINUE PLAN OF CARE.
--- NOTE | 2016-05-14 16:25 | NUR ---
VSS. NO ACUTE DISTRESS NOTED. PT DENIES ANY NEEDS OR DISCOMFORTS. WILL CONTINUE TO OBSERVE.
--- NOTE | 2016-05-14 18:20 | NUR ---
UP ON SIDE OF BED READING NEWSPAPERS AT THIS TIME. DENIES ANY NEEDS. NO ACUTE DISTRESS NOTED. VSS. WILL CONTINUE PLAN OF CARE.
--- NOTE | 2016-05-14 19:00 | NUR ---
REPORT RECEIVED AND ASSESSMENT COMPLETED. PT RECEIVED ONE UNIT OF BLOOD DURING DAY SHIFT. WILL ADMINISTER ANOTHER UNIT, WITH 40 MG LASIX GIVEN IN BETWEEN UNITS PER ORDERS. VSS.
--- NOTE | 2016-05-14 21:00 | NUR ---
2100 MEDS GIVEN. 2ND UNIT OF BLOOD INFUSING AT THIS TIME. NO SIGNS OF A REACTION.
--- NOTE | 2016-05-14 23:00 | NUR ---
REASSESSMENT COMPLETED. SEE FLOWSHEET FOR FULL DETAILS.
--- NOTE | 2016-05-14 23:30 | NUR ---
PRBC DONE INFUSING. NO SIGNS OF REACTION. WILL CONTINUE TO MONITOR.
[2016-05-15] VITALS (24 sets, daily range): BP systolic 113–186; BP diastolic 60–93
--- NOTE | 2016-05-15 01:00 | NUR ---
PT PLACED ON BIPAP. NO OTHER CHANGES AT THIS TIME. VSS.
--- NOTE | 2016-05-15 03:00 | NUR ---
REASSESSMENT COMPLETED. SEE FLOWSHEET FOR FULL DETAILS. NO OTHER CHANGES IN STATUS AT THIS TIME. VSS. WILL MONITOR
--- NOTE | 2016-05-15 05:00 | NUR ---
BED BATH AND LINEN CHANGE PROVIDED. NO OTHER CHANGES AT THIS TIME WILL MONITOR
[2016-05-15 05:05] LABS: BASOPHILS 0.2 % (0.0-2.0); EOSINOPHILS 0 % (0-7); IMMATURE GRANULOCYTES 6.7 % (0-5); LYMPHOCYTES 3.4 % (15-50); MCH 26.2 pg (26.0-34.0); MCHC 31.7 g/dL (31.0-37.0); MCV 82.5 fL (80.0-100.0); MEAN PLATELET VOLUME 9.7 fL (7.4-10.4); NEUTROPHILS 83.7 % (40-80); PLATELET COUNT 127 10x3/uL (130-400); RDW 16.7 % (11.5-14.5)
[2016-05-15 05:13] LABS: HEMATOCRIT 31.2 % (42.0-54.0); HEMOGLOBIN 9.9 g/dL (13.5-17.5); RBC 3.78 10x6/uL (4.20-6.10); WBC 5.8 10x3/uL (4.8-10.8)
[2016-05-15 05:16] LABS: ANION GAP 10.8 mmol/L (8-16); CALCIUM 8.2 mg/dL (8.5-10.1); CARBON DIOXIDE 30.9 mmol/L (21.0-32.0); CREATININE - SERUM 1.5 mg/dL (0.6-1.3); MAGNESIUM - SERUM 1.9 mg/dL (1.8-2.4); POTASSIUM - SERUM 3.7 mmol/L (3.5-5.1)
--- NOTE | 2016-05-15 10:22 | NUR ---
NUTRITION MONITORING & EVAL TOLERATING AHA DIET. UP WITH PT THIS AM. WILL CONTINUE TO PROVIDE DIET, MONITOR PT PROGRESS. RD FOLLOWING
[2016-05-15 11:14] LABS: FOLATE (FOLIC ACID) - SERUM 3.7 ng/mL (>3.0)
--- NOTE | 2016-05-15 13:10 | CN ---
PATIENT NAME:HÉCTOR GRAY MEDICAL RECORD: [id number] : 41 LOCATION:[id number] ADMIT DATE: 05/07/16 ACCOUNT: [id number] CONSULTING PHYSICIAN: ZAHIRA PERAZA MD REFERRING PHYSICIAN: CRISTOFER CORCORAN MD DATE OF CONSULTATION: 05/12/2016 HISTORY OF PRESENT ILLNESS: A 71-year-old gentleman with a known history of coronary artery disease, status post coronary artery bypass grafting as well as intervention, most recent angiography ____ February of this year showed patent stents and grafts, EF mildly reduced at 40%, has a history of hypertension, admitted with respiratory embarrassment, worsening renal insufficiency, hyperkalemia, noted to have elevated troponin, and BNP. We are asked to see him concerning his cardiovascular status. PAST MEDICAL HISTORY: Includes: 1. History of hypertension. 2. Pulmonary hypertension with PA pressures of 58 mmHg. 3. Mild . 4. Diabetes mellitus. 5. Status post pacemaker placement. ALLERGIES: INCLUDE KEFLEX AND NIFEDIPINE. MEDICATIONS: Prior to admission include: 1. Nystatin oral suspension ____ swish and swallow 5 q.i.d. 2. Brovana updraft 15 mcg b.i.d. 3. Librax 5/2.5 t.i.d. 4. Plavix 75 q. day. 5. Sildenafil 20 mg t.i.d. 6. Exforge ____ q. day. 7. Valsartan 80 q. day. 8. Neurontin 300 t.i.d. 9. Seroquel 25 q. day. 10. Requip 10 q.h.s. 11. Celexa 20 q. day. 12. Bumex 1 mg b.i.d. SOCIAL HISTORY: Quit smoking previously, is able to take care of all his ADLs on a regular basis. REVIEW OF SYSTEMS: The patient reports easy bruising but reports no swollen glands. The patient reports no fever, no night sweats, no significant weight gain, no significant weight loss. No significant exercise tolerance. The patient reports no dry eyes, no irritation, no vision change. Patient reports no difficulty hearing and no ear pain. Patient reports no frequent nose bleeds or nose and sinus problems. Patient reports on arm pain on exertion. No shortness of breath while lying down. No history of heart murmur. Patient reports no cough, no wheezing or coughing up blood. Patient reports no abdominal pain, no vomiting. Normal appetite. No diarrhea and not vomiting blood. No nausea and no constipation. Patient reports no incontinence. No difficulty urinating. No hematuria. No increased frequency. Patient reports no muscle aches. No weakness, no arthralgias, no back pain. No swelling of the extremities. Patient reports no abnormal mole, no jaundice, no rashes. Reports no loss of consciousness. No weakness and no numbness. No seizures, dizziness, CONSULT REPORT [id number] ISAAC,HÉCTOR GISSELL or headaches. The patient reports no depression, no sleep disturbance, feeling safe in a relationship and no alcohol abuse. Patient reports on fatigue. Reports no runny nose or sinus pressure. No itching, no hives, and no frequent sneezing. PHYSICAL EXAMINATION: GENERAL: Well developed, well nourished gentleman, in no acute distress. VITAL SIGNS: Blood pressure 114/74 and pulse 78 and regular. HEENT: Normocephalic and atraumatic. NECK: No JVD or bruit. HEART: Regular, currently occasional extrasystole. LUNGS: Prolonged expiratory phase with expiratory wheezes. ABDOMEN: Soft and nontender. EXTREMITIES: Pulses are 1+. There is no edema. NEUROLOGIC: Grossly intact. IMPRESSION: [id number] systolic dysfunction with EF of 40%, exacerbating factors include anemia, worsening renal insufficiency, hypoxia, etc. I agree with current management. We would like to keep hemoglobin above 8 to 8.5. Appears to be diuresing well with improvement in renal function. Further recommendations based on clinical course. TRANSINT:[id number] Voice Confirmation ID: [id number] DOCUMENT ID: [id number] ZAHIRA PERAZA MD at 1310 CC: [id number] DICTATION DATE: 05/12/16 1218 ETHOLOGIST: [id number] ADM IN [place] [id number] [place] [address]
--- NOTE | 2016-05-15 19:00 | NUR ---
REPORT RECEIVED AND ASSESSMENT COMPLETED. SEE FLOWSHEET FOR FULL DETAILS. PT IS VERY CONFUSED TODAY. UNABLE TO TELL ME HIS WIFES NAME OR HIS BIRTHDAY. PT LETHARGIC WELL. WILL MONITOR CLOSELY
--- NOTE | 2016-05-15 21:00 | NUR ---
2100 MEDS GIVEN. NO OTHER CHANGES AT THIS TIME.
--- NOTE | 2016-05-15 23:00 | NUR ---
REASSESSMENT COMPLETED. SEE FLOWSHEET FOR DETAILS.
[2016-05-16] VITALS (17 sets, daily range): BP systolic 144–167; BP diastolic 65–85
--- NOTE | 2016-05-16 01:00 | NUR ---
NO CHANGES IN STATUS AT THIS TIME. VSS. WILL MONITOR
--- NOTE | 2016-05-16 03:00 | NUR ---
REASSESSMENT COMPLETED. SEE FLOWSHEET FOR FULL DETAILS. PT IS STILL LETHARGIC AND REMAINS ON BIPAP. VSS. WILL CONTINUE TO MONITOR
--- NOTE | 2016-05-16 05:00 | NUR ---
PT AWAKE AND ALERT. MOVED TO OXYMISER 9L. STILL CONFUSED THOUGH ABLE TO TELL WIFES NAME AND BIRTHDAY.
[2016-05-16 05:45] LABS: ANION GAP 10.6 mmol/L (8-16); CALCIUM 8.5 mg/dL (8.5-10.1); CARBON DIOXIDE 31.6 mmol/L (21.0-32.0); CREATININE - SERUM 1.6 mg/dL (0.6-1.3); MAGNESIUM - SERUM 1.9 mg/dL (1.8-2.4); PHOSPHOROUS 4.2 mg/dL (2.5-4.9); POTASSIUM - SERUM 4.2 mmol/L (3.5-5.1)
[2016-05-16 05:51] LABS: HEMATOCRIT 32.2 % (42.0-54.0); HEMOGLOBIN 10.5 g/dL (13.5-17.5); LYMPHOCYTES 3.7 % (15-50); MCH 26.9 pg (26.0-34.0); MCHC 32.6 g/dL (31.0-37.0); MCV 82.6 fL (80.0-100.0); MEAN PLATELET VOLUME 9.6 fL (7.4-10.4); NEUTROPHILS 92.7 % (40-80)
[2016-05-16 05:53] LABS: PLATELET COUNT 163 10x3/uL (130-400); WBC 7.5 10x3/uL (4.8-10.8)
--- NOTE | 2016-05-16 07:30 | NUR ---
SHIFT ASSESSMENT VIA FLOWSHEET, SEE FOR DETAILS.
--- NOTE | 2016-05-16 14:04 | NUR ---
1200 PT FEEDING SELF LUNCH SITTING ON SIDE OF BED.. 1230 PT IS LYING BACK IN BED RESTING QUIETLY ..OXIMETER ON 1300 ASSISTED BACK INTO THE BED WITH PHYSICAL THERAPY.. 1400 AMBULATED IN THE UNIT WITH PHYSICAL THERAPY..
--- NOTE | 2016-05-16 15:42 | NUR ---
1500 WITHOUT VISITORS AT THIS TIME.. RESP TX IN PROGRESS... 1530 PT IS GROGGY EASILY ROUSED AND O2 SAT IS 96% ON 7 L OXIMIZER MEDS HELD AT THIS TIME DUE TO THE SIDE EFFECTS OF GROGGYNESS AND PTS O2 SAT PROBLEMS.. 1545 PT PLACED ON BIPAP PER RT.. CONTINUES TO SLEEP EASILY ROUSED..
--- NOTE | 2016-05-16 18:04 | NUR ---
1800 PT CONTINUES ON BIPAP O2.. FSBS WIHTOUT INSULIN COVER.. IS AT BEDSIDE ..
--- NOTE | 2016-05-16 19:17 | NUR ---
DR YEUNG AT BEDSIDE; SPOKE WITH FAMILY.
--- NOTE | 2016-05-16 19:30 | NUR ---
ASSESSMENT COMPLETE. S1S2. NSR SHOWING ON MONITOR. RR SHALLOW; WHEEZE NOTED ON BILATERALLY IN UPPER LOBES; DIMINISHED BILATERALLY IN LOWER LOBES. CONFUSED; NOT ABLE TO TELL WHO IS THE PRESIDENT IS. CONSISTANT REMINDERS TO LEAVE ON OXYMIZER. PT SITTING IN CHAIR. FAMILY AT BEDSIDE. O2 SAT 92%.
[2016-05-17] VITALS (13 sets, daily range): BP systolic 111–165; BP diastolic 65–107
--- NOTE | 2016-05-17 06:22 | NUR ---
SEE FLOW SHEETS IN CHART FOR FURTHER DETAILS.
[2016-05-17 07:01] LABS: BASOPHILS 0.5 % (0.0-2.0); EOSINOPHILS 0 % (0-7); HEMATOCRIT 33.2 % (42.0-54.0); HEMOGLOBIN 10.4 g/dL (13.5-17.5); IMMATURE GRANULOCYTES 9.1 % (0-5); LYMPHOCYTES 3.5 % (15-50); MCH 26.3 pg (26.0-34.0); MCHC 31.3 g/dL (31.0-37.0); MCV 84.1 fL (80.0-100.0); MEAN PLATELET VOLUME 9.5 fL (7.4-10.4); MONOCYTES 9.2 % (2-11); NEUTROPHILS 77.7 % (40-80); PLATELET COUNT 168 10x3/uL (130-400); RBC 3.95 10x6/uL (4.20-6.10); RDW 17.3 % (11.5-14.5); WBC 10.2 10x3/uL (4.8-10.8)
--- NOTE | 2016-05-17 07:15 | NUR ---
REC'D REPORT AND RESUMED, AWAKE AND ANSWERS QUESTIONS APPROPRIATELY, VSS, ASSESSMENT COMPLETE PER FLOWSHEET, DENIES PAIN, CALL LIGHT IN REACH VOICES, NO NEEDS AT THIS TIME
[2016-05-17 07:40] LABS: ANION GAP 11.4 mmol/L (8-16); CARBON DIOXIDE 31.9 mmol/L (21.0-32.0); CREATININE - SERUM 1.6 mg/dL (0.6-1.3); POTASSIUM - SERUM 4.3 mmol/L (3.5-5.1)
--- NOTE | 2016-05-17 09:30 | NUR ---
AM MEDS PER MAR AND PROTOCAL GIVEN WITHOUT DIFFICULTY
--- NOTE | 2016-05-17 10:18 | NUR ---
NUTRITION MONITORING & EVAL PT REMAINS IN ISOLATION. TOLERATING AHA DIET. WILL CONTINUE TO PROVIDE DIET, MONITOR PT PROGRESS. RD FOLLOWING
--- NOTE | 2016-05-17 11:00 | NUR ---
OOB TO AMBULATE AND THEN TO CHAIR WITH ASSIST FROM PT, PORTABLE 02 IN USE, TOLERATED WITHOUT DIFFICULTY, RECONNECTED TO ICU MONITORS, VSS, NO OTHER CHANGE FROM PREVIOUS ASSESSMENT
--- NOTE | 2016-05-17 12:15 | NUR ---
LUNCH TRAY TO BEDSIDE, INDEPENDENT WITH SET UP AND EATING
--- NOTE | 2016-05-17 12:30 | NUR ---
FSBS 186, 4 UNITS REG INSULIN GIVEN
--- NOTE | 2016-05-17 14:02 | NUR ---
UP TO AMBULATE WITH ASSIST FROM PT, PORTABLE O2 IN USE, TOLERATED WITHOUT DIFFICULTY
--- NOTE | 2016-05-17 15:00 | NUR ---
NO ACUTE CHANGE FROM PREVIOUS ASSESSMENT VSS, CONTINUES TO SIT UP IN CHAIR, NO NEEDS AT THIS TIME, NO FAMILY AT THIS TIME, CALL LIGHT IN REACH
--- NOTE | 2016-05-17 16:30 | NUR ---
I AND O'S COMPLETED WITHOUT DIFFICULTY
--- NOTE | 2016-05-17 18:15 | NUR ---
SLEEPING WITH NO SIGNS OF DISTRESS, VSS, AT BEDSIDE, NO NEEDS AT THIS TIME
--- NOTE | 2016-05-17 19:30 | NUR ---
ASSESSMENT COMPLETE. S1S2. PACEMAKER. PACING SHOWING ON MONITOR. DROPLET ISO. RR CRACKLES AND WHEEZE NOTED BILATERALLY IN UPPER LOBES; DIMINISHED BILATERALLY IN LOWER LOBES. RT IJ CVL; PATENT. ON 4L VIA NC. PERRLA. RADIAL AND PEDAL PULSES PALPATED. GENERALIZED EDEMA NOTED TO EXTREMITIES.
--- NOTE | 2016-05-17 21:53 | NUR ---
RECIEVED PT FROM ICU VIA WHEELCHAIR, TRANSFERED TO BED, ASSESSMENT COMLPETED, NO DISTRESS NOTED, FALL AND ISOLATION PRECAUTIONS IMPLEMENTED, DENIES NEEDS AT THIS TIME, ORIENTED TO ROOM AND CL , WILL MONITOR
--- NOTE | 2016-05-17 23:20 | NUR ---
RESTING WITH EYES CLOSED, BIPAP IN PLACE, NO DISTRESS NOTED, SR'S UP , CL IN REACH
[2016-05-18] VITALS: BP 146/66
--- NOTE | 2016-05-18 01:20 | NUR ---
CONTINUES TO REST WITH EYES CLOSED, BIPAP IN PLACE, NO DISTRESS NOTED, SAFETY AND ISOLATION PRECAUTIONS IN PLACE, CL IN REACH
--- NOTE | 2016-05-18 03:07 | NUR ---
RESTING WITH EYES CLOSED, BIPAP IN PLACE, NO DISTRESS NOTED, SAFETY AND ISOLATION PRECAUTIONS IN PLACE, CL IN REACH
[2016-05-18 04:00] VITALS: BP 135/70
--- NOTE | 2016-05-18 05:05 | NUR ---
BLOOD DRAWN FOR ORDERED LAB FROM IJ, 10CC WASTED, 3 LUMENS FLUSHED WITH 10CC NS EACH, PT MAYRJO WELL, CL IN REACH
[2016-05-18 05:42] LABS: BASOPHILS 0.5 % (0.0-2.0); EOSINOPHILS 0 % (0-7); HEMATOCRIT 32.7 % (42.0-54.0); HEMOGLOBIN 10.5 g/dL (13.5-17.5); IMMATURE GRANULOCYTES 8.7 % (0-5); LYMPHOCYTES 3.4 % (15-50); MCH 26.7 pg (26.0-34.0); MCHC 32.1 g/dL (31.0-37.0); MCV 83.2 fL (80.0-100.0); MEAN PLATELET VOLUME 10.1 fL (7.4-10.4); MONOCYTES 7.4 % (2-11); PLATELET COUNT 164 10x3/uL (130-400); RBC 3.93 10x6/uL (4.20-6.10); RDW 17.2 % (11.5-14.5); WBC 11.3 10x3/uL (4.8-10.8)
[2016-05-18 06:17] LABS: ANION GAP 10.5 mmol/L (8-16); CALCIUM 8.4 mg/dL (8.5-10.1); CARBON DIOXIDE 34.6 mmol/L (21.0-32.0); CREATININE - SERUM 1.7 mg/dL (0.6-1.3); MAGNESIUM - SERUM 1.9 mg/dL (1.8-2.4); POTASSIUM - SERUM 4.1 mmol/L (3.5-5.1)
[2016-05-18 06:20] LABS: PHOSPHOROUS 5.3 mg/dL (2.5-4.9)
--- NOTE | 2016-05-18 06:21 | NUR ---
MEDS GIVEN PER MAR, MARYJO WELL, DENIES NEEDS
[2016-05-18 07:50] VITALS: BP 147/58
--- NOTE | 2016-05-18 09:55 | NUR ---
PT SEEN EARILER AND ASSESSED. MILD SOB ON EXERTION. LUNGS DIMINISHED BILAT. OXYGEN AT 4L NC. REMAINS ON DROPLET ISOLATION. STATES HAD A GOOD NIGHT. MONITOR SHOWS PACED. NO COMPLAINTS AT PRESENT. CALL LIGHT IN PLACE. NON SKID SOCKS ON FOR SAFETY
[2016-05-18 11:41] VITALS: BP 140/56
[2016-05-18 15:09] VITALS: BP 136/62
--- NOTE | 2016-05-18 16:27 | NUR ---
ENTERED PT ROOM. OXYGEN ON FLOOR, SCD X 1 AND 1 NON SKID SOCK OFF. OXYGEN REPLACED ALONG WITH SCD AND NON SKID SOCK. POSITIONED IN BED AND BED ALARM ACTIVATED FOR SAFETY. CALL LIGHT IN REACH
--- NOTE | 2016-05-18 19:00 | NUR ---
PATIENT HAD INCONTINENT EPISODE OF BLADDER. LINENS AND GOWN CHANGED. AAOX4. RR EVEN AND UNLABORED. O2 @ 4L VIA NC. 0 S/S OF DISTRESS. DENIES PAIN AT THIS TIME. RIGHT IJ PATENT WITH DRESSING CDI. SCD'S ON. B/A ON. SRX2. BED LOW. CALL LIGHT WITHIN REACH.
[2016-05-18 19:50] VITALS: BP 109/73
--- NOTE | 2016-05-18 22:05 | NUR ---
ASSESSMENT COMPLETE. NIGHTTIME MEDS GIVEN. 8 UNITS HUMULIN GIVEN FOR BS OF 222.
--- NOTE | 2016-05-19 | NUR ---
NOTICED THAT PATIENT HAD ANTS IN ROOM. MOVED PATIENT TO ROOM 2228. MAINTENANCE SPRAYED ROOM. PATIENT GIVEN BATH.
--- NOTE | 2016-05-19 03:56 | NUR ---
PATIENT SLEEPING SUPINE IN BED WITH BIPAP ON AND NO DISTRESS NOTED.
[2016-05-19 08:18] VITALS: BP 143/68
--- NOTE | 2016-05-19 11:04 | NUR ---
Rehab Prescreening Consult recieved and the chart has been reviewed. He is a good inpatient rehab candidate. The PT notes state he is requiring increased 02 at 6 [address]ers to walk a short distance. I would like to see him able to walk on the same amount of 02 he is on at rest without desating. To meet Medicare criteria for IRF he must be able and willing to participate in 3 hrs of therapy daily 5 days a week. Spoke to the CM Briseida Trejo re this. Nan Dickens RN Clinical Liaison, Rehab
--- NOTE | 2016-05-19 12:24 | EC ---
PATIENT:HÉCTOR GRAY DATE OF SERVICE: 05/07/16 SEX: M MEDICAL RECORD: [id number] DATE OF : 41 LOCATION:D.MS [address] AGE OF PATIENT: 71 ADMISSION DATE: 05/07/16 REFERRING PHYSICIAN: INTERPRETING PHYSICIAN: DAMASO ZHANG M.D. ECHOCARDIOGRAM REPORT ECHO CHARGES 4 ECHO COMPLETE CLINICAL DIAGNOSIS: CHF/PULMONARY EDEMA HX CAD/CABG/PACER ECHOCARDIOGRAPHIC MEASUREMENTS (adult normal given) AC root (d.<3.7cm) 3.2 LV Septum d (<1.2 cm> 1.4 Valve Excursion 1.2 LV Septum (systole) 1.8 Left Atria (s.<4.0cm> 4.6 LVPW d(<1.2cm) 1.8 RV (d.<2.3cm) 4.2 LVPW (sytole) 2.0 LV diastole(<5.6CM) 5.5 MV E-F(>70mm/sec) LV systole 4.0 LVOT Diameter 1.9 MV exc.(>10mm) 2.4 Est.ejection fraction (50-75%) Pericardial Effusion N DOPPLER: LVIT A 158 E 136 LA RVSP 40 LVOT 114 AOP1/2T Asc. Ao 217 RVOT RA PA AV Gradient Peak 19.18 AV Mean 11.74 AV Area 1.2 MV Gradient Peak 10.43 MV Mean 3.19 MV Area COMMENTS: Park Maintenance Technician: Augusto MASTERSON Pad Machine Offbearer:2 Dr. Zhang TAPE# PACS DATE OF SERVICE: 05/12/2016 REFERRING PHYSICIAN: Damaso Zazueta MD. INDICATION: Congestive heart failure. DESCRIPTION: Left ventricle demonstrates left ventricular hypertrophy. No wall motion abnormalities are noted. Estimated ejection fraction is 55%. Mitral valve is structurally normal. There is mild regurgitation noted. Left atrium is mildly dilated. The aortic valve leaflets are thickened. The peak gradient ECHOCARDIOGRAM REPORT [id number] HÉCTOR GRAY across the valve is 19 mmHg. There is no insufficiency noted. Right ventricle is mildly dilated. Tricuspid valve is normal. There is mild regurgitation seen. Right ventricular systolic pressure is elevated at 40 mmHg. There is no pericardial effusion seen. IMPRESSION: 1. Left ventricular hypertrophy with preserved ejection fraction of 55%. 2. Mild mitral regurgitation. 3. Mild aortic stenosis. 4. Mild tricuspid regurgitation with elevated pulmonary pressures. TRANSINT:[id number] Voice Confirmation ID: [id number] DOCUMENT ID: [id number] DAMASO ZHANG M.D. at 1224 CC: [id number] DICTATION DATE: 05/12/16 1308 DIE CUTTER OPERATOR: 05/12/16 1421 ADM IN [facility] [address] [place] [address]
[2016-05-19 13:02] VITALS: BP 138/58
--- NOTE | 2016-05-19 13:20 | NUR ---
PT WAS RECEIVED AT THE BEGINING OF THIS SHIFT IN BED AWAKE AND ORIENTED ONLY TO PERSON. HE IS STABLE. WEARING 02 PER NC AT 4L/MIN. HE REMAINS ON CONTACT ISOLATION PRECAUTIONS FOR MRSA AND STAPH IN SPUTUM. IV TO RT. IJ WITH NS GOING AT KVO RATE OF FLOW. URINAL AT BEDSIDE. PT IS WEARING SCD'S. CALL LIGHT IS IN REACH.
--- NOTE | 2016-05-19 13:30 | NUR ---
PT STOOD UP OUT OF BED AND URINATED IN THE FLOOR. HE WAS VERY CONFUSED. HIS URINAL WAS ON HIS BEDSIDE TABLE. HE WAS ASSISTED BACK TO BED WHERE HE IS RESTING COMFORTABLY NOW.
[2016-05-19 16:31] VITALS: BP 134/58
--- NOTE | 2016-05-19 18:31 | NUR ---
PT CONTINUES TO BE STABLE AND IN ISOLATION. HE IS ALERT BUT CONFUSED. HE IS GIVEN TOTAL ASSIST WITH ALL ADL'S. VISITING THIS AFTERNOON AND EVENING. PT IS INCONTINENT AND WEARS A BRIEF. NUMEROUS BED LINEN CHANGES TODAY DUE TO INCONTINENCE. WILL CONTINUE TO OBSERVE.
--- NOTE | 2016-05-19 19:26 | NUR ---
PT RECEIVED LYING IN BED RESTING QUIETLY AT THIS TIME WITH EYES CLOSED. AROUSED EASILY. PT CONFUSED TO SITUATION. RIGHT IJ WITH NS INFUSING @ 30 CC/HR. DRESSING CDI. PATENT. PT ON 2 L O2 VIA NC. PT ON DROPLET ISOLATION. HEART RRR. LUNG SOUNDS DIMINISHED BILATERALLY. BOWEL SOUNDS ACTIVE X4 QUADRENTS. ABDOMEN SOFT NON-DISTENDED. PT RATES PAIN 0/10 AT THIS TIME. PEDAL PULSES EQUAL BILATERALLY. PT DENIES NEEDS AT THIS TIME. BED LOW. PHONE AND CALL LIGHT IN REACH. SRX2.
--- NOTE | 2016-05-19 21:24 | NUR ---
PM MEDS GIVEN AT THIS TIME. PT DENIES NEEDS. BED LOW. PHONE AND CALL LIGHT IN REACH. SRX2.
[2016-05-19 22:00] VITALS: BP 140/68
--- NOTE | 2016-05-19 22:04 | NUR ---
PT FSBS 221 AT THIS TIME. ADMINISTERED 8 UNITS HUMULIN INSULIN TO LEFT ARM. PT DENIES OTHER NEEDS. BED LOW. PHONE AND CALL LIGHT IN REACH. SRX2.
--- NOTE | 2016-05-19 22:49 | NUR ---
PT RESTING QUIETLY AT THIS TIME WITH EYES CLOSED. RESPIRATIONS EVEN, NON-LABORED. NO ACUTE DISTRESS NOTED AT THIS TIME. BED LOW. PHONE AND CALL LIGHT IN REACH. SRX2.
[2016-05-20 03:38] VITALS: BP 148/73
--- NOTE | 2016-05-20 05:45 | NUR ---
AM LABS DRAWN AT THIS TIME VIA RIGHT IJ. PT DENIES NEEDS AT THIS TIME. BED LOW. PHONE AND CALL LIGHT IN REACH. SRX2.
[2016-05-20 06:05] LABS: BASOPHILS 0.3 % (0.0-2.0); EOSINOPHILS 0 % (0-7); HEMATOCRIT 35.2 % (42.0-54.0); HEMOGLOBIN 11.4 g/dL (13.5-17.5); IMMATURE GRANULOCYTES 7.8 % (0-5); LYMPHOCYTES 3.1 % (15-50); MCH 27.3 pg (26.0-34.0); MCHC 32.4 g/dL (31.0-37.0); MCV 84.2 fL (80.0-100.0); MEAN PLATELET VOLUME 9.8 fL (7.4-10.4); NEUTROPHILS 82.8 % (40-80); PLATELET COUNT 144 10x3/uL (130-400); RBC 4.18 10x6/uL (4.20-6.10); RDW 17.8 % (11.5-14.5); WBC 10.2 10x3/uL (4.8-10.8)
--- NOTE | 2016-05-20 06:24 | NUR ---
AM MEDS GIVEN AT THIS TIME. PT FSBS 148. PT DENIES NEEDS. BED LOW. PHONE AND CALL LIGHT IN REACH. SRX2.
[2016-05-20 06:27] LABS: ANION GAP 6.9 mmol/L (8-16); CALCIUM 8.7 mg/dL (8.5-10.1); CREATININE - SERUM 1.9 mg/dL (0.6-1.3); POTASSIUM - SERUM 3.9 mmol/L (3.5-5.1)
--- NOTE | 2016-05-20 07:00 | NUR ---
PT REC'D FROM [facility] MCKEON. SITTING UP IN BED EATING BREAKFAST. AAOX4. UTE. DRESSING TO R IJ SOILED AND STARTING TO COME OFF. WILL CHANGE. EXPIRATORY WHEEZES BILAT TO UPPER LOBES. COARSE LUNG SOUNDS TO LOWER LOBES THAT CLEAR WITH COUGHING. COUGHING THICK YELLOW SPUTUM. BOWEL SOUNDS ACTIVE X4. +2 PEDAL PULSES. BED LOW, CALL LIGHT IN REACH, DENIES NEEDS. CPOC.
--- NOTE | 2016-05-20 07:32 | NUR ---
DR CORCORAN NOTIFIED OF PT CRITICAL LAB. CO2 -40.0.
[2016-05-20 09:05] VITALS: BP 138/60
--- NOTE | 2016-05-20 09:20 | NUR ---
MORNING MEDS PASSED AT THIS TIME. ASSISTED TO CHAIR AT BEDSIDE BY MARY ANN JOHNSON. PT TOLERATED WELL. MINIMAL ASSISTANCE PROVIDED. BED LOW, CALL LIGHT IN REACH, DENEIS NEEDS. CPOC.
--- NOTE | 2016-05-20 10:07 | NUR ---
SPOKE WITH ON PHONE. UPDATE PROVIDED. PT SITTING UP IN CHAIR AT BEDSIDE STILL. CALL LIGHT WITHIN REACH, DENIES NEEDS.
--- NOTE | 2016-05-20 11:45 | NUR ---
PATIENT SITTING UP IN CHAIR ALERT. NO SIGNS OF DISTRESS NOTED. PRIMARY NURSE VANESA MOTT AT BEDSIDE. CALL LIGHT IN REACH.
--- NOTE | 2016-05-20 11:48 | NUR ---
CURRENT FSBS 184. 4 UNITS OF INSULIN ADMINISTERED PER SS. STILL SITTING UP IN CHAIR AT BEDSIDE. CALL LIGHT IN REACH, DENIES NEEDS. CPOC.
[2016-05-20 11:59] VITALS: BP 118/62
--- NOTE | 2016-05-20 13:00 | NUR ---
DRESSING TO R IJ CHANGED USING STERILE TECHNIQUE. UNHOOKED FROM IV SO THAT PT CAN WALK WITH PHYSICAL THERAPY.
[2016-05-20 15:40] VITALS: BP 122/58
[2016-05-20 22:24] VITALS: BP 103/61
--- NOTE | 2016-05-20 23:43 | NUR ---
Recieved patient and report at 1900, patient alert and oriented, patient sitting in gerichair at bedside, O2 at 2L via NC, IV access right IJ patent with clean dressing, wheezing with expiration bilaterally, CPOC.
[2016-05-21 05:53] LABS: ANION GAP 8.3 mmol/L (8-16); CALCIUM 8.5 mg/dL (8.5-10.1); CARBON DIOXIDE 38.1 mmol/L (21.0-32.0); POTASSIUM - SERUM 3.4 mmol/L (3.5-5.1)
--- NOTE | 2016-05-21 07:00 | NUR ---
PT REC'D FROM HENRIETTA MCLEOD. RESTING IN BED WITH EYES CLOSED. BIPAP ON. NO SIGNS OF DISTRESS. RESP EVEN AND UNLABORED. BED LOW, CALL LIGHT IN REACH, CPOC.
[2016-05-21 08:14] VITALS: BP 110/56
--- NOTE | 2016-05-21 10:00 | NUR ---
PATIENT SITTING UP IN CHAIR AT BEDSIDE RESTING WITH EYES CLOSED. RESPIRATIONS EVEN AND UNLABORED. CALL LIGHT IN REACH.
--- NOTE | 2016-05-21 12:00 | NUR ---
AT BEDSIDE. UPDATE PROVIDED. PT ALERT TO SELF ONLY. PT ASSISTED BACK TO BED AND BIPAP PLACED ON PER KEVIN, RT. CURRENT O2 SAT 96%.
[2016-05-21 12:44] VITALS: BP 133/68
[2016-05-21 15:50] VITALS: BP 131/57
[2016-05-21 20:00] VITALS: BP 143/63
--- NOTE | 2016-05-21 21:15 | NUR ---
PT IN BED. IN ROOM. BED IN LOWEST POSITION AND CALL LIGHT WITHIN REACH.
[2016-05-22] VITALS: BP 138/68
--- NOTE | 2016-05-22 01:31 | NUR ---
PT IN BED WITH HOB UP FOR COMFORT, RESTING QUIETLY, WEARING BIPAP, BED IN LOWEST POSITION AND CALL LIGHT WITHIN REACH.
[2016-05-22 04:00] VITALS: BP 175/75
--- NOTE | 2016-05-22 05:36 | NUR ---
PT LYING IN BED WEARING BIPAP, EYES CLOSED CHEST RISING AND FALLING, BED IN LOWEST POSITION AND CALL LLIGHT WITHIN REACH.
[2016-05-22 08:26] VITALS: BP 143/69
[2016-05-22 11:39] VITALS: BP 140/68
[2016-05-22] MEDS ORDERED: IPRAT-ALBUT 0.5-3 ML UPD (13:52)
[2016-05-22] MEDS ORDERED: BENZONATATE200 MG PO (13:54)
[2016-05-22] MEDS ORDERED: FLUTICASONE PRO16 GM NASAL (13:55)
[2016-05-22] MEDS ORDERED: PREDNISONE10 MG PO (13:57)
[2016-05-22] MEDS ORDERED: HUMULIN R100 U/ML SC (13:59)
--- NOTE | 2016-05-22 15:14 | NUR ---
CM REASSESSMENT NOTE: PATIENT IS DISCHARGING TO IP REHAB TODAY. D/C IMM NOTICE SERVED AND SIGNED
[2016-05-22 15:26] VITALS: BP 146/65
--- NOTE | 2016-05-22 16:40 | NUR ---
CALLED REPORT TO TRIP IN REHAB
--- NOTE | 2016-05-23 19:03 | CN ---
PATIENT NAME:HÉCTOR GRAY MEDICAL RECORD: [id number] : 41 LOCATION:D.MS [address] ADMIT DATE: 05/07/16 ACCOUNT: [id number] CONSULTING PHYSICIAN: TE ROB MD REFERRING PHYSICIAN: CRISTOFER CORCORAN MD DATE OF CONSULTATION: 05/16/2016 Gastroenterology Consultation REFERRING PHYSICIAN: Waqar Avilez MD. HISTORY OF PRESENT ILLNESS: The patient is a 71-year-old white male well known to me, who was admitted with multiple issues including pneumonia, renal insufficiency with fluid overload and some diarrhea. I am asked to see the patient because of chronic anemia. Apparently, he has had 11 units of blood, has been transfused him over the past few months. He has not had any signs of any obvious bleeding whatsoever including any melena or hematochezia. His diarrhea has essentially resolved and he is tolerating regular diet at present. He is still in the ICU. He does have a history of chronic gastric ulcer bleeding from an antral ulcer that was NSAID-induced for as NSAID/aspirin induced for several years, however, it final healed after he stop his aspirin back in 2013. He has not had a problem of GI bleeding since then. His last colonoscopy was way back in February 2004. That exam revealed moderate sized internal hemorrhoids and some ischemic colitis. He has not had lower scopes since then. He has had intermittent left lower quadrant pain, felt probably related more to gas pain than anything else. PAST MEDICAL HISTORY: Remarkable for severe COPD, chronic, on 24/7 home oxygen. He also has coronary artery disease status post PTCA with stent placement. His ejection fraction was reported 40%. He has hypertension, cardiac arrhythmias, prostate cancer and recurrent pneumonia. He has also had lumbar spine surgery and radiation for prostate cancer. ALLERGIES: PROCARDIA AND KEFLEX. CURRENT MEDICATIONS: Include prednisone taper at 40 mg daily. He is on Pepcid 40 mg at bedtime, methylprednisolone, Bumex, Lasix, insulin, acetylcysteine, Colace, Flonase, Seroquel, Celexa, Plavix, Ventolin, Xanax, Protonix 40 mg b.i.d., Pulmicort, Requip, Neurontin, Librax t.i.d., albuterol, nystatin, Brovana. FAMILY HISTORY: Negative for GI disease. SOCIAL HISTORY: The patient is negative for alcohol use. REVIEW OF SYSTEMS: Noncontributory other than in the HPI. PHYSICAL EXAMINATION: GENERAL: Reveals a chronically ill-appearing white male in mild respiratory distress. Seems a little confuse tonight. VITAL SIGNS: Stable. He is afebrile. CHEST: Clear anteriorly. HEART: Revealed a regular rate and rhythm. ABDOMEN: Soft and protuberant. He has no significant tenderness present. CONSULT REPORT [id number] HÉCTOR GRAY EXTREMITIES: Reveal 2+ edema throughout. LABORATORY DATA: Reveals a white count 7000, hematocrit 32, this is after transfusing a couple of units of blood. He has a mild left shift. Electrolytes are normal. BUN 61, creatinine 1.6. CT of the abdomen and pelvis a week ago did not reveal any abnormal abdominal processes. He did have aortic and pelvic stents in the common iliac arteries bilaterally as well as right common femoral artery. He also had pronounced bilateral lower lobe airspace disease, greater on the left than on the right as well as findings suggestive of CHF and/or pneumonia. IMPRESSION: 1. Anemia, probably multifactorial in origin, related anemia of chronic disease and/or bone marrow issues. I certainly do not think his anemia is mostly gastrointestinal in origin. There have been no signs of active bleeding in several years. He does have a heme-positive stool, but also has known moderate sized internal hemorrhoids. 2. Severe chronic obstructive pulmonary disease, on home oxygen 28/08. 3. Significant renal insufficiency. 4. Evidence of congestive heart failure and fluid overload. 5. Remote history of ischemic colitis about 12 years ago as noted above. 6. Past history of NSAID-induced gastric ulcer with bleeding, healed in 2013. He is still on Plavix, but not on aspirin anymore. RECOMMENDATIONS: 1. I do not feel he is anywhere near an endoscopic candidate list, obvious GI bleeding occurs ____ and I do not think his colonoscopy candidate under any circumstance. 2. Agree with a long-term PPI therapy and avoidance of all aspirin and NSAIDs completely. 3. Okay with Librax for intermittent left lower quadrant abdominal pain. TRANSINT:[id number] Voice Confirmation ID: [id number] DOCUMENT ID: [id number] TE ROB MD at 2983 CC: WAQAR AVILEZ MD and CRISTOFER CORCORAN MD [id number] DICTATION DATE: 05/16/161927 ARMATURE STRAIGHTENER: 05/16/162221 DIS IN 05/22/16 [facility] [address] [place] [address]
== END 2016-05-22 17:30 | DRG 682 ==
LOC: D.ER 00:03 → D.M2 02:10 → D.MS 02:10 → D.ICU 02:10 → D.MS 05-17 22:10
PROVIDERS: Family Medicine; Internal Medicine Nephrology; Internal Medicine Pulmonary Disease; Surgery; ADMIT Family Medicine
PROC: 4A143B0 Monitoring of Venous Pressure, Central, Percutaneous Approach (ICD-10-PCS; principal; 2016-05-07)
PROC: 5A09557 Assistance with Respiratory Ventilation, Greater than 96 Consecutive Hours, Continuous Positive Airway Pressure (ICD-10-PCS; principal; 2016-05-07)
DX: N17.0 Acute kidney failure with tubular necrosis (principal); J96.22 Acute and chronic respiratory failure with hypercapnia; I50.23 Acute on chronic systolic (congestive) heart failure; J96.21 Acute and chronic respiratory failure with hypoxia; G93.40 Encephalopathy, unspecified; J15.6 Pneumonia due to other Gram-negative bacteria; J15.212 Pneumonia due to Methicillin resistant Staphylococcus aureus; J44.0 Chronic obstructive pulmonary disease with (acute) lower respiratory infection; J44.1 Chronic obstructive pulmonary disease with (acute) exacerbation; I13.0 Hypertensive heart and chronic kidney disease with heart failure and stage 1 through stage 4 chronic kidney disease, or unspecified chronic kidney disease; D62 Acute posthemorrhagic anemia; E11.22 Type 2 diabetes mellitus with diabetic chronic kidney disease; N18.3 Chronic kidney disease, stage 3 (moderate); E11.40 Type 2 diabetes mellitus with diabetic neuropathy, unspecified; I08.3 Combined rheumatic disorders of mitral, aortic and tricuspid valves; I25.10 Atherosclerotic heart disease of native coronary artery without angina pectoris; K64.9 Unspecified hemorrhoids; E87.5 Hyperkalemia; I27.2 Other secondary pulmonary hypertension; N13.9 Obstructive and reflux uropathy, unspecified; G47.33 Obstructive sleep apnea (adult) (pediatric); I65.23 Occlusion and stenosis of bilateral carotid arteries; R19.7 Diarrhea, unspecified; Z95.0 Presence of cardiac pacemaker; Z95.5 Presence of coronary angioplasty implant and graft; Z95.1 Presence of aortocoronary bypass graft; Z87.891 Personal history of nicotine dependence; Z86.73 Personal history of transient ischemic attack (TIA), and cerebral infarction without residual deficits; D69.6 Thrombocytopenia, unspecified; D63.8 Anemia in other chronic diseases classified elsewhere

== ENCOUNTER → 2016-05-08 | Emergency (ER) | payer MEDICARE, OTHER ==
[~2016-05-08] MED LIST changes: +BENZONATATE200 MG PO; +BUMETANIDE0.5 MG PO; +FLUTICASONE PRO16 GM NASAL; +HUMULIN R100 U/ML SC; +PREDNISONE10 MG PO
[2016-05-08 17:33] LABS: INR 1.15 (0.85-1.17); PROTIME 14.5 SECONDS (11.6-15.0)
[2016-05-08 17:34] LABS: APTT 33.1 SECONDS (22.8-39.4)
== END ==
LOC: D.ER 17:14
PROVIDERS: Emergency Medicine
DX: I63.9 Cerebral infarction, unspecified (principal); I50.9 Heart failure, unspecified; I12.9 Hypertensive chronic kidney disease with stage 1 through stage 4 chronic kidney disease, or unspecified chronic kidney disease; N18.9 Chronic kidney disease, unspecified; J44.9 Chronic obstructive pulmonary disease, unspecified

== ENCOUNTER 2016-05-22 16:35 | Inpatient (IN) | payer MEDICARE, OTHER ==
[~2016-05-22] VITALS: Ht 172.7 cm; Wt 104.3 kg
[~2016-05-22 16:35] MED LIST changes: -BUMETANIDE0.5 MG PO
--- NOTE | 2016-05-22 17:35 | NUR ---
RECIEVED FROM MED SURG/BED ON O2 AT 2.5L/NC.PLEASANTLY CONFUSED.CL IN REACH.ALARM ON.SR UP X3.
[2016-05-22 18:08] VITALS: BP 127/53; BMI 35.0
[2016-05-22 19:07] VITALS: BP 125/56
--- NOTE | 2016-05-22 19:25 | NUR ---
IN BED, HOB UP 45 DEGREES. RESTING QUIETLY. LILLIAN BED ALARM IS ARMED. SR UP X3 WITH WQTER AND CALL LIGHT IN REACH.
--- NOTE | 2016-05-22 20:00 | NUR ---
IN BED. AT BEDSIDE.
--- NOTE | 2016-05-22 21:55 | NUR ---
PATIENT ROLLED ON LEFT SIDE ATTEMPTING OOB. REPOSITIONED HIM UP IN BED, AND THEN CLEANSED AND CHANGED HIM FROM LARGE URINE INCONTINENCE. REQUIRED CHANGE OF BRIEF, GOWN AND PINK BED PAD.
--- NOTE | 2016-05-22 23:05 | NUR ---
ASSESSMENT AND HS MEDS COMPLETE. READJUSTED PATIENT'S BIPAP MASK. REMINDED HIM TO KEEP IT ON.
--- NOTE | 2016-05-23 00:10 | NUR ---
RESTING QUIETLY IN BED, WITH BIPAP MASK ON.
--- NOTE | 2016-05-23 02:10 | NUR ---
RESTING QUIETLY WITH BIPAP MASK IN PLACE. APPEARS COMFORTABLE.
--- NOTE | 2016-05-23 04:40 | NUR ---
IN BED, EYES CLOSED. CONTINUES ON BIPAP. NO DISTRESS NOTED.
--- NOTE | 2016-05-23 06:00 | NUR ---
RESTING IN BED, EYES CLOSED. BIPAP MASK IN PLACE.
[2016-05-23 06:57] LABS: BASOPHILS 0.1 % (0.0-2.0); EOSINOPHILS 0 % (0-7); HEMATOCRIT 32.2 % (42.0-54.0); HEMOGLOBIN 10.1 g/dL (13.5-17.5); IMMATURE GRANULOCYTES 5.2 % (0-5); LYMPHOCYTES 5.6 % (15-50); MCH 26.7 pg (26.0-34.0); MCHC 31.4 g/dL (31.0-37.0); MCV 85.2 fL (80.0-100.0); MEAN PLATELET VOLUME 9.8 fL (7.4-10.4); MONOCYTES 1.7 % (2-11); NEUTROPHILS 87.4 % (40-80); PLATELET COUNT 130 10x3/uL (130-400); RBC 3.78 10x6/uL (4.20-6.10); RDW 17.9 % (11.5-14.5)
--- NOTE | 2016-05-23 07:00 | NUR ---
PT WAS RECEIVED IN BED WITH EYES CLOSED AT THE BEGINNING OF THIS SHIFT. HE WAS WEARING HIS BI-PAP MACHINE. VITAL SIGNS; TEMP. 98.6, PULSE 75, RESP. 16, B/P 85/41, 02SAT. 95%. NO SIGNS OF ANY DISCOMFORT OR DISTRESS. CALL LIGHT IS IN REACH. WILL BE MONITORING HIM THROUGH THIS SHIFT AND ASSISTING PRN WITH ADL'S.
[2016-05-23 07:30] LABS: ANION GAP 5.4 mmol/L (8-16); CALCIUM 8.3 mg/dL (8.5-10.1); CARBON DIOXIDE 38.9 mmol/L (21.0-32.0); CREATININE - SERUM 1.6 mg/dL (0.6-1.3); POTASSIUM - SERUM 3.3 mmol/L (3.5-5.1)
[2016-05-23 11:00] VITALS: BP 85/41
[2016-05-23 13:54] VITALS: Ht 172.7 cm; Wt 104.3 kg
--- NOTE | 2016-05-23 15:41 | NUR ---
PT HAS HAD AN UNEVENTFUL DAY TODAY. HE WENT TO THERAPY. DR. CONDON ROUNDED THIS MORNING AND LAB WAS ORDERED. PT'S VISITING AT THIS TIME. PT IS RESTING NOW IN BED WITH BI-PAP ON. WILL CONTINUE TO OBSERVE AND ASSIST.
--- NOTE | 2016-05-23 18:43 | NUR ---
PT WENT OUT ON BACK DECK WITH HIS FOR SUPPER. PT IS NOW ON CONTACT ISOLATION NOT DROPLET. STABLE CONDITION OBSERVED.
[2016-05-23 20:13] VITALS: BP 77/36
--- NOTE | 2016-05-23 22:10 | NUR ---
ASSESSMENT AND HS MEDS COMPLETE. FSBS 170. GAVE PATIENT 4 UNITS SLIDING SCALE INSULIN SC IN LEFT UPPER ARM.
--- NOTE | 2016-05-23 23:45 | NUR ---
RESTING QUEITLY IN BED, EYES CLOSED. BIPAP MASK IN PLACE.
--- NOTE | 2016-05-24 01:45 | NUR ---
CLEANSED PATIENT AND CHANGED BRIEF AFTER LARGE URINE INCONTINENCE. PATIENT REMOVED MASK BY PULLING IT APART. I PUT IT BACK TOGETHER AND PUT IT BACK ON HIS FACE. 5 MINUTES LATER HE PULLED IT OFF HIS FACE AGAIN. AGAIN REPOSITIONED IT ON HIS FACE AND ADJUSTED STRAPS FOR BETTER FIT.
--- NOTE | 2016-05-24 03:55 | NUR ---
SET OFF BED ALARM SITTING UP WITH REIGHT LEG THRUST BETWEEN BEDRAILS. ASKED HIM WHAT HE IS DOING. SAID, "SITTING UP. I'M TIRED OF THIS BULLST OF STAYING IN BED 15, 16 HOURS A DAY!" REMINDED HIM HE HAS ONLY BEEN IN BED SINCE ABOUT 2030 LAST NIGHT TO NOW. HAD HIM PULL HIS LEG BACK INTO THE BED AND LIE BACK. READJUSTED HIS BIPAP HEAD HARNESS HE HAD TWISTED IT, SETTING OFF THE ALARM DUE TO AIR LEAKAGE AROUND MASK. REMINDED HIM THAT HE IS IN THE HOSPITAL AND THAT IF HIS DID NOT TRUST US TO CARE FOR HIM, HE WOULD NOT BE HERE.
--- NOTE | 2016-05-24 06:05 | NUR ---
FSBS 149. CLEANSED PATIENT AND CHANGED ALL BED LINENS SAVE HIS PILLOWCASE DUE TO VERY LARGE URINE INCONTINENCE. REMOVED BIPAP AND PLACED PATIENT ON O2 @ 2.5L FLOW PER N/C HE IS FIGHTING THE BIPAP FOR THE PAST FEW HOURS AND IS NOT BENEFITTING FROM IT HE IS FERQUENTLY REMOVING HIS MASK.
[2016-05-24 06:21] LABS: BASOPHILS 0.2 % (0.0-2.0); EOSINOPHILS 0 % (0-7); HEMATOCRIT 32.7 % (42.0-54.0); HEMOGLOBIN 10.2 g/dL (13.5-17.5); IMMATURE GRANULOCYTES 5.7 % (0-5); LYMPHOCYTES 8.5 % (15-50); MCH 27.2 pg (26.0-34.0); MCHC 31.2 g/dL (31.0-37.0); MEAN PLATELET VOLUME 9.9 fL (7.4-10.4); MONOCYTES 0.8 % (2-11); NEUTROPHILS 84.8 % (40-80); PLATELET COUNT 137 10x3/uL (130-400); RBC 3.75 10x6/uL (4.20-6.10); RDW 18.1 % (11.5-14.5); WBC 8.3 10x3/uL (4.8-10.8)
[2016-05-24 06:23] LABS: MCV 87.2 fL (80.0-100.0)
[2016-05-24 06:51] LABS: ANION GAP 6.3 mmol/L (8-16); CALCIUM 8.4 mg/dL (8.5-10.1); CARBON DIOXIDE 39.3 mmol/L (21.0-32.0); CREATININE - SERUM 1.9 mg/dL (0.6-1.3); POTASSIUM - SERUM 3.6 mmol/L (3.5-5.1)
--- NOTE | 2016-05-24 07:25 | NUR ---
INTRODUCED SELF TO PT, PT STATED WANTED WATER AND A SODA, EDUCATED PT ON THE INPORTANCE OF DRINKING WATER AND TO MINIMIZED HIS SOFT DRINK INTAKE. WILL CONTINUE TO MONITOR, CALL LIGHT WITHIN REACH.
--- NOTE | 2016-05-24 10:00 | NUR ---
MORNING MEDICATION GIVEN, PT TOLERATED WELL, PT STATES NO NEEDS AT THIS TIME, WILL CONTINUE TO MONITOR, CALL LIGHT WITHIN REACH.
[2016-05-24 10:23] VITALS: BP 134/67
--- NOTE | 2016-05-24 12:41 | NUR ---
PT SITTING UP IN CHAIR EATING LUNCH, PT STATES NO NEEDS AT THIS TIME, WILL CONTINUE TO MONITOR, CALL LIGHT WITHIN REACH.
--- NOTE | 2016-05-24 14:09 | NUR ---
PT SITTING IN UP IN CHAIR WATCHING TV, PT STATES NO NEW NEEDS AT THIS TIME, WILL CONTINUE TO MONITOR, CALL LIGHT WITHIN REACH.
--- NOTE | 2016-05-24 15:00 | NUR ---
PT IN BED RESTING, RESPIRATIONS EVEN, WILL RECHECK PT IN 30 MIN, WILL CONTINUE TO MONITOR, CALL LIGHT WITHIN REACH.
--- NOTE | 2016-05-24 15:05 | NUR ---
RT NECK/CHEST CVL D/C'D WITH CATHETER INTACT. DIRECT PRESSURE APPLIED FOR 15 MINUTES.. OCCULSIVE DRESSING APPLIED.
--- NOTE | 2016-05-24 15:30 | NUR ---
ASSISTED PT WITH PUTTING HIS BYPAP ON, AT BEDSIDE, WILL CONTINUE TO MONITOR, CALL LIGHT WITHIN REACH.
--- NOTE | 2016-05-24 18:12 | NUR ---
SITTING ON DECK WITH
--- NOTE | 2016-05-24 18:20 | NUR ---
PT SITTING OUT ON DECK VISITING WITH , PT STATES NO NEEEDS AT THIS TIME, WILL CONTINUE TO MONITOR.
--- NOTE | 2016-05-24 19:35 | NUR ---
PT RESTING, EYES CLOSED. BED LOW. CL IN REACH.
[2016-05-24 19:55] VITALS: BP 116/56
--- NOTE | 2016-05-24 21:40 | NUR ---
PT HS MEDS ADMINISTERED. PT DENIES NEEDS. BIPAP IN PLACE. WCTM. BED LOW. C LORENZA REACH.
--- NOTE | 2016-05-24 23:35 | NUR ---
PT RESTING, EYES CLOSED. BIPAP IN PLACE. BED LOW. CL IN REACH. PT RESTING, EYES CLOSED. BED LOW. CL IN REACH.
--- NOTE | 2016-05-25 01:15 | NUR ---
PT RESTING, EYES CLOSED. BED LOW. CL IN REACH.
--- NOTE | 2016-05-25 03:35 | NUR ---
PT RESTING, EYES CLOSED. BED LOW. CL IN REACH.
--- NOTE | 2016-05-25 08:15 | NUR ---
DR. Radha CONDON INTO SEE PATIENT. NEW ORDERS RECEIVED. PATIENT SITTING UP ON THE SIDE OF THE BED TO EAT BREAKFAST. CALL LIGHT WITHIN REACH. BED ALARM ON.
[2016-05-25 08:28] VITALS: BP 106/50
--- NOTE | 2016-05-25 10:24 | NUR ---
PATIENT IN REHAB ROOM. VOICES NO PAIN/DISC AT THIS TIME
--- NOTE | 2016-05-25 10:48 | NUR ---
Nutrition Follow Up: Pt was in therapy at the time of RD visit. Chart reviewed. Pt is eating 87% meal avg on a regular diet. +BM 05/24/16. Labs reviewed - BUN, Cr, Glucose continue elevated. Meds noted including Prednisone, Humulin, Bumex. Pt with good po intake at this time. Will change diet to Regular NCS to aid in glucose control. RD following.
--- NOTE | 2016-05-25 12:30 | NUR ---
PATIENT SITTING UP IN A WHEELCAIR TO EAT LUNCH. BOX ALARM ON. PATIENT DOES NOT HAVE A GOOD APPETITE THIS AFTERNOON. ATE ALL OF HIS GREEN BEANS. DID NOT TOUCH THE REST OF HIS FOOD. DRINKING WELL. DRANK 360CC OF FLUID.
--- NOTE | 2016-05-25 14:49 | NUR ---
PATIENT TAKEN TO BATHROOM BUY NURSE ASST. STAND BY ASST WITH WHEELED WALKER. HELPED BACK INTO BED. BED ALAARM ON
--- NOTE | 2016-05-25 17:38 | NUR ---
GLUCOSE LEVEL 167. FOUR UNITS OF SLIDING SCALE INSULIN GIVEN. GRANDSON IN PATIENTS ROOM, VISITING.
--- NOTE | 2016-05-25 18:36 | NUR ---
RESTING QUIETLY IN BED CALL LIGHT IN REACH
--- NOTE | 2016-05-25 19:45 | NUR ---
PT ASSISTED TO BR. PT BACK IN BED AND DENIES FURHTER NEEDS. BED LOW. CL IN REACH. FAMILY AT BEDSIDE.
[2016-05-25 19:50] VITALS: BP 132/56
--- NOTE | 2016-05-25 21:00 | NUR ---
PT HS MEDS ADMINISTERED. PT DENIES NEEDS. BED LOW. CL IN REACH.
--- NOTE | 2016-05-25 23:43 | NUR ---
PT RESTING, EYES CLOSED. RR ARE EVEN AND UNLABORED. WCTM. BED LOW. CL IN REACH.
--- NOTE | 2016-05-26 01:35 | NUR ---
PT RESTING, EYES CLOSED. BIPAP IN PLACE. WCTM. BED LOW. CL IN REACH.
--- NOTE | 2016-05-26 03:40 | NUR ---
PT RESTING, EYES CLOSED. BED LOW. CL IN REACH.
--- NOTE | 2016-05-26 06:13 | NUR ---
PT AM MEDS ADMINISTERED. PT COMPLETE BED/CLOTHING CHANGE DONE. PT DENIES NEEDS. BED LOW. CL IN REACH.
[2016-05-26 07:02] LABS: BASOPHILS 0.1 % (0.0-2.0); EOSINOPHILS 0.1 % (0-7); HEMATOCRIT 34.2 % (42.0-54.0); HEMOGLOBIN 10.5 g/dL (13.5-17.5); IMMATURE GRANULOCYTES 4.6 % (0-5); LYMPHOCYTES 5.4 % (15-50); MCH 26.8 pg (26.0-34.0); MCHC 30.7 g/dL (31.0-37.0); MCV 87.2 fL (80.0-100.0); MEAN PLATELET VOLUME 9.9 fL (7.4-10.4); MONOCYTES 3.9 % (2-11); NEUTROPHILS 85.9 % (40-80); PLATELET COUNT 133 10x3/uL (130-400); RBC 3.92 10x6/uL (4.20-6.10); RDW 18.9 % (11.5-14.5); WBC 8.1 10x3/uL (4.8-10.8)
[2016-05-26 07:20] LABS: ANION GAP 10.8 mmol/L (8-16); CALCIUM 8.7 mg/dL (8.5-10.1); CARBON DIOXIDE 37.1 mmol/L (21.0-32.0); CREATININE - SERUM 2.1 mg/dL (0.6-1.3); POTASSIUM - SERUM 3.9 mmol/L (3.5-5.1)
--- NOTE | 2016-05-26 08:00 | NUR ---
PATIENT HELPED TO BATHROOM BUY THIS NURSE. LARGE STRESS INCONT. OF URINE WHEN PATIENT STANDS UP TO PULL DOWN PANTS. MOD ASST OF CARE WITH TOILETING. DR. Radha CONDON INTO SEE PATIENT NEW ORDERS RECEIVED WHEN PATIENT STANDS
[2016-05-26 10:12] VITALS: BP 104/52
--- NOTE | 2016-05-26 10:34 | NUR ---
PATIENT IN REHAB ROOM. WORKING WITH PHYSICAL THERAPIST. DENIES ANY PAIN/DISC AT THIS TIME.
--- NOTE | 2016-05-26 12:00 | NUR ---
GLUCOSE LEVEL 118. NO SLIDING SCALE INSULIN GIVEN. PATIENT REAMAINS IN DROPLET ISOLATION.
--- NOTE | 2016-05-26 15:46 | NUR ---
PATIENT CHANGED, INCONT OF URINE. RESTING IN BED AFTER THERAPY. CALL LIGHT WITHIN REACH. OXYGEN ON AT 2.5L PER N/C
--- NOTE | 2016-05-26 18:18 | NUR ---
RESTING QUIETLY IN BED CALL LIGHT IN REACH
--- NOTE | 2016-05-26 19:50 | NUR ---
TRANSFERRED PATIENT BACK TO BED AND WITH 'S ASSISTANCE, CLEANSED AND CHANGED PATIENT FROM LARGE URINARY INCONTINENCE. APPLIED BUT PASTE TO DIME-SIZED ABRASION TO POSTERIOR SCROTUM. STARTED PATIENT BACK ON BIPAP WITH O2 @ 2L FLOW.
[2016-05-26 21:55] VITALS: BP 93/43
--- NOTE | 2016-05-26 21:55 | NUR ---
FSBS 204. GAVE PATIENT 8 UNITS REGULAR SLIDING SCALE INSULIN SC IN LEFT UPPER ARM. ASSESSMENT COMPLETE. TOOK HS MEDS, BUT WITH SWALLOWING DELAY I HAD NOT NOTED BEFORE. MILDLY UNCOOPERATIVE WITH TAKING MEDS TONIGHT. ALSO MORE DROWSY THAN I HAVE SEEN HIM AT THIS TIME ON PREVIOUS NIGHTS. WAS DIFFICULT TO KEEP ON TASK WITH TAKING HIS MEDS TONIGHT.
--- NOTE | 2016-05-27 00:10 | NUR ---
RESTING QUIETLY IN BED, EYES CLOSED. NO DISTRESS NOTED.
--- NOTE | 2016-05-27 02:10 | NUR ---
CONTINUES IN BED, EYES CLOSED. BIPAP MASK IN PLACE. NO DISTRESS NOTED.
--- NOTE | 2016-05-27 05:47 | NUR ---
PATIENT RESTING QUIETLY AFTER TAKING SCHEDULED PO MEDS. QUIET DROWSY THIS MORNING BUT MORE RESPONSIVE THAN LAST NIGHT.
[2016-05-27 07:00] VITALS: BP 80/37
--- NOTE | 2016-05-27 07:00 | NUR ---
PT WAS RECEIVED IN BED WITH EYES CLOSED AT THE BEGINNING OF THIS SHIFT. VITAL SIGNS; TEMP. 96.7, PULSE 68, RESP 19, B/P 80/37, 02SAT. 98% ON 2L/NC. WILL BE MONITORING HIM AND ASSISTING PRN WITH ADL'S.
--- NOTE | 2016-05-27 07:10 | NUR ---
RECHECKED BP 96/46, PULSE 80, RESP. 18, 02SAT. 88% ON 40% B-PAP. PT'S BED LINENS CHANGED WITH THE HELP OF THE AIDE AND THE CHARGE NURSE. DR. CONDON'S PAGER PHONED. WILL HOLD PT'S BP MEDS THIS AM. PT IS STABLE.
--- NOTE | 2016-05-27 10:00 | NUR ---
PT VITALS WERE CHECKED AGAIN. B/P 86/34, PULSE 67, RESP. 18, 02SAT. 90%. PT'S PHONED AT THIS EXACT TIME AND WANTED TO KNOW THE CONDITION OF HER . ASSESSMENT RESULTS GIVEN TO THE . RAPID RESPONSE WAS CALLED ALSO AT THIS TIME. DR. MORGAN [employer] WAS PHONED AND DR. REICH WAS SPOKEN TO. HE GAVE THE ORDER TO SEND TO ICU AND MAKE DR. CORCORAN AWARE OF HIS TRANSFER TO THAT UNIT. [facility] WAS NOTIFIED OF THE ORDER RECEIVED TO TRANSFER. PT WAS TAKEN TO ICU AND THE WAS NOTIFIED OF HIS TRANSFER.
[2016-05-27] MEDS ORDERED: PREDNISONE20 MG PO (13:49)
[2016-05-27] MEDS ORDERED: IPRAT-ALBUT 0.5-3 ML UPD (13:52)
--- NOTE | 2016-05-29 10:19 | NUR ---
due to change in medical condition , patient dischrged from rehab and admitted to icu.
--- NOTE | 2016-05-30 12:12 | RHP ---
PATIENT: HÉCTOR GRAY MEDICAL RECORD: [id number] ACCOUNT: [id number] LOCATION:[facility].1110 : 43 ADMISSION DATE: 05/22/16 REHABILITATION HISTORY AND PHYSICAL EXAMINATION POST ADMISSION PHYSICIAN EXAMINATION Post-admission Physical Examination and History and Physical DATE OF ADMISSION TO REHAB: 05/22/2016 ADMITTING DIAGNOSES: Right frontal infarction with acute renal failure and acute confusion with lethargy. HISTORY OF PRESENT ILLNESS: The patient is a 71-year-old gentleman, who is admitted to the rehab with a working diagnosis of acute CVA. The patient has a history of hypertension, coronary artery disease, CHF, COPD, PTCA with stents and pacemaker placement in the past. The patient recently was hospitalized for GI bleed and chronic anemia. He was readmitted on May 07 with exacerbation of COPD and generalized weakness on the floor. He seemed more lethargic than usual, most of the day, particularly in the afternoon. He was noted around 3:45 to be difficult to arouse, hypoxic and transferred to ICU and had a CT done. He was noted to be unresponsive; it showed a loss of the lares-white distinction in the right frontal lobe. He was sent to the Emergency Room. He was not a candidate for tPA. A CT of the head showed acute hypodensity and loss of lares-white differentiation in anterior frontal lobe, which was suspicious for an infarct. He remained lethargic, from descriptions, globally confused when he was stimulated. He did seem to improve later on the day. At this time, he denies any focal system complaints except chronic loss of sensation in bilateral lower extremities that have been present for greater than a year. His hospital stay has been complicated by worsening chronic anemia. He has received 3 units of packed red blood cells. He also has acute kidney failure on top of acute kidney injury. Nephrology was consulted. He also has a hospital-acquired pneumonia requiring O2 and also BiPAP at bedtime. Prior to admit, he was moderately independent at home and wears 2 L of O2 chronically. Currently, he is mod to max assist for ADLs and mobility for short distances. Barriers to discharge include droplet isolation, cardiac monitoring, daily lab values for electrolyte replacement as well as need for blood transfusions, inability to ambulate without a rolling walker, gait belt at this time and requiring portable O2. He plans to return back home with his upon leaving the hospital. COMORBIDITIES: In this patient include anemia, pulmonary hypertension, hospital-acquired pneumonia, chronic renal insufficiency, pulmonary edema, cardiomegaly, hyperkalemia, hypokalemia, fatigue, weakness, coronary artery disease, obstructive sleep apnea, debility, recent GI bleed, and hypoxia. PAST MEDICAL HISTORY: Significant for coronary artery disease. He got a history of chronic renal insufficiency, obstructive sleep apnea, history of pacemaker placement in the past, pulmonary hypertension and anemia. PAST SURGICAL HISTORY: Includes coronary artery bypass grafting, pacemaker placement, lumbar surgery and prostate surgery in the past. ALLERGIES: KEFLEX AND NIFEDIPINE. CURRENT MEDICATIONS: Include prednisone, he is on tapering doses. He is on HISTORY AND PHYSICAL [id number] ISAACHÉCTOR Diovan 320 mg daily. He is on Seroquel 25 mg daily. He is on Protonix 40 mg b.i.d., Flonase nasal spray daily, Plavix 75 mg daily, citalopram 20 mg daily, Revatio 20 mg t.i.d. for his pulmonary hypertension. He is on Requip 10 mg q.h.s., Nystatin suspension q.a.c. and q.h.s. He is on DuoNeb updrafts as needed, Neurontin 300 mg t.i.d., Librax p.r.n. abdominal pain, Bumex 1 mg b.i.d., Pulmicort 0.5 mg b.i.d., Tessalon Perles 200 mg t.i.d. p.r.n. cough, Brovana 15 mcg b.i.d., and polyethylene glycol 17 g in 8 ounces of water daily. HABITS: No current alcohol or tobacco use. FAMILY HISTORY: Noncontributory. SOCIAL HISTORY: The patient wants to return back home with his and kids. REVIEW OF SYSTEMS: GENERAL: Does complain of weakness. HEENT: Does complain of cold, cough, congestion. CARDIOVASCULAR: Denies any chest pain. Does complain of shortness of breath though. PHYSICAL EXAMINATION: VITAL SIGNS: Stable. He is afebrile. GENERAL: A somewhat obese gentleman, in no acute distress, alert upon exam. HEENT: Normocephalic, atraumatic. Mucosa moist. NECK: Supple. No lymphadenopathy. LUNGS: Clear at this time. HEART: Regular rate and rhythm. ABDOMEN: Benign. EXTREMITIES: No clubbing or cyanosis. Does have some trace edema. NEUROLOGIC: Seems intact. LABORATORY DATA: His white count was 8.0, H&H of 10 and 32 and platelet count is 130. Sodium 141, potassium 3.3, BUN and creatinine of 52 and 1.6 and blood sugar was noted to be 157. ASSESSMENT: This is a 71-year-old gentleman admitted to the rehab with a working diagnosis of new-onset cerebrovascular accident, complicated by chronic and acute renal insufficiency. The patient has potential to make improvement. We instituted the following multidisciplinary therapies including to, but not limited to physical, occupational, respiratory, speech, nutritional services, prosthetics and orthotics. Given his complex condition and risk for more complications, rehabilitation services cannot be provided at a lower level of care such as a longterm facility. PLAN: 1. Admit to [facility] rehab for intensive inpatient therapy to include the following disciplines: A. Physical therapy to improve gait, all transfer skills and bed mobility to a modified independent level. B. Occupational therapy to improve activities of daily living to a modified independent level. C. Case management to assist with discharge planning and placement options. D. Nutrition to assist with nutritional needs. E. Rehabilitation nursing to assist in monitoring the patient's underlying medical conditions and to assist with any type of bowel or bladder management. HISTORY AND PHYSICAL [id number] HÉCTOR GRAY 2. The patient's current medication and medical care will be continued. 3. The patient will be placed on standard fall precautions. 4. The patient's estimated length of stay is approximately 7-10 days. 5. We will go ahead and monitor his electrolytes closely and discuss him with care team staff meeting this week. TRANSINT:[id number] Voice Confirmation ID: [id number] DOCUMENT ID: [id number] HOWARD CONDON MD at 1212 CC: [id number] DICTATION DATE: 05/23/16 1109 SMALL ENGINE MECHANIC: 05/23/16 1213 DIS IN 05/27/16 [place] [address]
== END 2016-05-27 11:11 | disposition short-term general hospital (02) | DRG 64 ==
LOC: D.REHAB 16:35
PROVIDERS: ADMIT Emergency Medicine
DX: I63.8 Other cerebral infarction (principal); J18.9 Pneumonia, unspecified organism; I50.23 Acute on chronic systolic (congestive) heart failure; J96.21 Acute and chronic respiratory failure with hypoxia; I13.0 Hypertensive heart and chronic kidney disease with heart failure and stage 1 through stage 4 chronic kidney disease, or unspecified chronic kidney disease; N17.9 Acute kidney failure, unspecified; J81.1 Chronic pulmonary edema; J44.1 Chronic obstructive pulmonary disease with (acute) exacerbation; N18.9 Chronic kidney disease, unspecified; R41.0 Disorientation, unspecified; R53.83 Other fatigue; D64.9 Anemia, unspecified; G47.33 Obstructive sleep apnea (adult) (pediatric); R53.81 Other malaise; R53.1 Weakness; E87.5 Hyperkalemia; Y95 Nosocomial condition; Z95.0 Presence of cardiac pacemaker

== ENCOUNTER 2016-05-27 10:38 | Inpatient (IN) | payer MEDICARE, OTHER ==
[2016-05-27] VITALS (28 sets, daily range): BP systolic 64–125; BP diastolic 32–75; Ht 175.3 cm; Wt 90.7 kg
[~2016-05-27] VITALS: Ht 175.3 cm; Wt 90.7 kg
--- NOTE | ~2016-05-27 | CN ---
PATIENT NAME:HÉCTOR GRAY MEDICAL RECORD: [id number] : 41 LOCATION:[facility].2309 ADMIT DATE: 05/27/16 ACCOUNT: [id number] CONSULTING PHYSICIAN: ARNIE HALL MD REFERRING PHYSICIAN: TE RICHARDS MD DATE OF CONSULTATION: 05/27/2016 CONSULT REQUESTING PHYSICIAN: Te Richards MD REASON FOR CONSULTATION: Acute hypoxic respiratory failure, hypertension, rapid response. HISTORY OF PRESENT ILLNESS: Mr. Gray is a 71-year-old gentleman, very well known to me. The patient was in the rehab unit this morning, he become hypertensive and a bit confused. Rapid response was called. The patient was transferred to the ICU and his blood pressure significantly improved now. He is awake and alert, but a bit lethargic. He denies any fever and chill. There are no night sweats. The patient has multiple comorbidities in the past. REVIEW OF SYSTEMS: Mainly in the history of present illness. PAST MEDICAL HISTORY: 1. COPD. 2. Chronic hypoxic respiratory failure. 3. Recent pneumonia. 4. Congestive heart failure with chronic systolic dysfunction with EF 40%. 5. Moderate pulmonary hypertension with right ventricular systolic pressure of 58. 6. Mild aortic stenosis with moderate TR and MR. 7. History of gastric ulcer with acute GI bleed. 8. Anemia. 9. Gastroesophageal reflux disease. 10. Obstructive sleep apnea on BiPAP. 11. History of hypertension. 12. Chronic kidney disease. 13. Diabetes mellitus with neuropathy. PAST SURGICAL HISTORY: 1. He is status post CABG. 2. Status post pacemaker placement. 3. He has lumbar surgery. 4. Prostate radiation. 5. Cataract surgery. ALLERGIES: HE IS ALLERGIC TO KEFLEX AND PROCARDIA. PRESENT MEDICATIONS: On [employer] was reviewed. PERSONAL AND SOCIAL HISTORY: The patient is . He lives with his . He is an ex-smoker. He is a nondrinker. FAMILY HISTORY: Unknown. PHYSICAL EXAMINATION: GENERAL: Now, the patient is on BiPAP. He is lying comfortably, not in acute CONSULT REPORT [id number] HÉCTOR GRAY distress. VITAL SIGNS: The blood pressure is 104/50, pulse is 97, respirations is 13, pulse is 65. SpO2 is 97% on BiPAP, 60% oxygen. HEENT: Conjunctivae is now pink, sclerae nonicteric. NECK: Supple. There is elevated JVD. CHEST: There are bibasilar crackles. No wheezing. HEART: Rate and rhythm regular with a grade II/ systolic murmur. ABDOMEN: Soft, bowel sounds present. No hepatosplenomegaly. EXTREMITIES: No cyanosis, no clubbing. There is 1+ pedal edema. SKIN: Warm, normal turgor. CENTRAL NERVOUS SYSTEM: The patient is lethargic, but he could easily be awakened. LABORATORY DATA: CBC: The WBC is 8000, hemoglobin 9.6, hematocrit 31.4. The platelet count is 96. The neutrophils 85.5%. Chemistry: Sodium 137, potassium 4.2, BUN is 97, creatinine 3.6, AST is 34, ALT is 44. ProBNP 2031. Albumin is 2.1. IMPRESSION: 1. Bobwi-gn-emettns hypoxic respiratory failure. 2. Acute exacerbation of chronic obstructive pulmonary disease. 3. Hypertension. 4. Acute mental status changes. 5. Chronic systolic dysfunction with EF of 40%. 6. Moderate pulmonary hypertension with right ventricular systolic pressure of 58. 7. Obstructive sleep apnea. 8. Coronary artery disease. 9. Gastroesophageal reflux disease. 10. Uvdhl-ad-bjbwayp kidney disease. PLAN: 1. The patient was transferred to the ICU. Continue the BiPAP, nasal cannula, oxygen is required. 2. Brovana/budesonide nebulizer. 3. Albuterol/ipratropium nebulizer. 4. Methylprednisolone IV. 5. Start him on empiric vancomycin and Merrem. 6. Bumex 2 mg times 1. 7. Check the ABG and follow series of labs and check the ammonia level. Check the cardiac enzyme level. Dr. Richards, once again thanks for involving me in the care of Mr. Gray. Discussed with family at length. The critical care time is 45 minutes. TRANSINT:[id number] Voice Confirmation ID: [id number] DOCUMENT ID: [id number] CONSULT REPORT [id number] ISAACHÉCTOR ARNIE CARDONA MD CC: CRISTOFER CORCORAN MD [id number] DICTATION DATE: 05/27/16 1248 SYSTEMS SUPPORT ENGINEER: 05/27/16 181 ADM IN [id number] [place] [address]
[2016-05-27 11:13] LABS: ALBUMIN 2.1 g/dL (3.4-5.0); ANION GAP 12.1 mmol/L (8-16); BILIRUBIN - TOTAL 0.48 mg/dL (0.2-1.3); CALCIUM 8.2 mg/dL (8.5-10.1); CARBON DIOXIDE 31.1 mmol/L (21.0-32.0); CREATININE - SERUM 3.6 mg/dL (0.6-1.3); POTASSIUM - SERUM 4.2 mmol/L (3.5-5.1); PROTEIN - SERUM 5.5 g/dL (6.4-8.2)
--- NOTE | 2016-05-27 11:15 | NUR ---
STARTED IV TO LEFT FOREARM, 22G X'S 2 ATTEMPTS.
[2016-05-27 11:38] LABS: BASOPHILS 0.3 % (0-2); EOSINOPHILS 0.1 % (0-7); HEMATOCRIT 31.4 % (42.0-54.0); HEMOGLOBIN 9.6 g/dL (13.5-17.5); LYMPHOCYTES 6.5 % (15-50); MCH 26.2 pg (26.0-34.0); MCHC 30.6 g/dL (31.0-37.0); MCV 85.6 fL (80.0-100.0); MEAN PLATELET VOLUME 9.9 fL (7.4-10.4); MONOCYTES 5.6 % (2-11); NEUTROPHILS 85.5 % (40-80); RBC 3.67 10x6/uL (4.20-6.10); RDW 19.7 % (11.5-14.5)
--- NOTE | 2016-05-27 11:46 | NUR ---
PATIENT IS RESTING QUIETLY AT THIS TIME WITH EYES CLOSED. PATIENT IS ON A BIPAP. OXYGEN SATURATION 97%. BED IN LOWEST POSITION, CALL LIGHT IN REACH. BED RAILS UP X'S 3. BED ALARM ON.
[2016-05-27 12:03] LABS: PLATELET ESTIMATE NORMAL
[2016-05-27 12:04] LABS: PLATELET COUNT 96 10x3/uL (130-400)
--- NOTE | 2016-05-27 12:16 | NUR ---
AND FAMILY MEMBER AT BEDSIDE. PATIENT RESTING WITH BIPAP ON
--- NOTE | 2016-05-27 12:57 | NUR ---
SAID "WAIT TO GIVE THE BUMEX UNTIL SEES THE PATIENT."
[2016-05-27] MEDS ORDERED: PREDNISONE20 MG PO (13:49)
[2016-05-27] MEDS ORDERED: IPRAT-ALBUT 0.5-3 ML UPD (13:52)
[2016-05-27 14:45] LABS: TROPONIN-I 0.092 ng/mL (0.000-0.060)
--- NOTE | 2016-05-27 15:09 | NUR ---
GALVEZ CATHETER PLACED, 16FR. IMMEDIATE URINE RETURN, ROLO COLORED URINE.
--- NOTE | 2016-05-27 15:34 | NUR ---
SPOKE WITH ABOUT PATIENT'S CREATININE LEVEL, AND ORDER FOR VANCOMYOCIN, HE STATED "THAT IS FINE."
--- NOTE | 2016-05-27 17:17 | NUR ---
TEMP LOW, RECHECKED WITH A SECOND THERMOMETER AND RECTALLY TO CONFIRM. APPLIED 2 WARM BLANKETS. CALLED RUNWAY MODEL FOR A BEAR HUGGER BLANKET.
--- NOTE | 2016-05-27 18:02 | NUR ---
HARRIET FAULKNER APPLIED TO PATIENT
[2016-05-27 20:18] LABS: TROPONIN-I 0.07 ng/mL (0.000-0.060)
--- NOTE | 2016-05-27 20:20 | NUR ---
PLACED ONTO BEDPAN. NO RESULTS. THERESA AMANDAGGAR PLACED ONTO STANDBY MODE. TEMP 98.0 AX. AT BEDSIDE.
--- NOTE | 2016-05-27 22:20 | NUR ---
PILLOW AND BLANKET GIVEN TO . SHE IS GOING TO BE IN THE WAITING ROOM AND INSTRUCTED TO COME GET HER IF HE GETS TOO CONFUSED. PLACED B/P CUFF BACK ON AND IN WORKING ORDER. MAP >70. WILL MONITOR.
[2016-05-28] VITALS (24 sets, daily range): BP systolic 90–160; BP diastolic 40–73
--- NOTE | 2016-05-28 01:30 | NUR ---
URINE SPECIMEN COLLECTED FROM GALVEZ VIA STERILE TECHNIQUE. SENT TO LAB. AWOKE AND REASSESSMENT COMPLETED. SEE ASSESSMENT FLOWSHEET. TEMP ASSESSED. 97.0 AX. REMAINS ON BIPAP. /; FIO2 60%. WILL MONITOR.
--- NOTE | 2016-05-28 01:40 | NUR ---
HE BROKE THE BIPAP MASK HE WAS WEARING. NEW ONE PLACED ON PER PAL WITH R.T.
[2016-05-28 01:53] LABS: CREATININE - URINE 42.1 mg/dL (30-125)
[2016-05-28 02:01] LABS: APPEARANCE CLEAR (CLEAR); BACTERIA NONE SEEN /hpf (NONE SEEN); BILIRUBIN NEGATIVE (NEGATIVE); COLOR YELLOW (YELLOW); EPITHELIAL CELLS 0-5 /hpf (0-5); GLUCOSE NEGATIVE (NEGATIVE); KETONE NEGATIVE (NEGATIVE); LEUKOCYTE ESTERASE NEGATIVE (NEGATIVE); NITRITE NEGATIVE (NEGATIVE); PROTEIN NEGATIVE (NEGATIVE); SPECIFIC GRAVITY 1.015 (1.005-1.020); UROBILINOGEN NORMAL (NORMAL); WHITE CELLS - URINE RARE /hpf (0-5)
--- NOTE | 2016-05-28 04:00 | NUR ---
TOOK BIPAP MASK OFF TO GIVEN SUGAR-FREE ICE CREAM. PLACED ONTO 5LPM/NC O2. CHANGED PINK PAD FROM UNDERNEATH HIM. SMALL AMT OF BLOODY DRAINAGE AT TIP OF PENIS/CATHETER. CLEANSED PERINEAL AREA. NEW STAT-LOCK PLACED TO RT THIGH. REASSESSMENT COMPLETED. SEE ASSESSMENT FLOWSHEET. MORE ALERT AND ORIENTED TO PERSON, PLACE AND TIME. REPORTS BEING IN THE HOSPITAL NOW FOR ABOUT 4 WEEKS. NO OTHER ACUTE DISTRESS NOTED. WILL MONITOR.
--- NOTE | 2016-05-28 05:30 | NUR ---
OBTAINED FROM WAITING ROOM PER PATIENT REQUEST. WOKE HER UP. REQUESTED JELLO AND DIET COKE. OBLIGED. REPOSITIONED B/P CUFF. FALSE READING. RETOOK. WILL MONITOR.
[2016-05-28 06:57] LABS: BASOPHILS 0 % (0-2); EOSINOPHILS 0 % (0-7); HEMOGLOBIN 7.7 g/dL (13.5-17.5); IMMATURE GRANULOCYTES 1.3 % (0-5); MCH 27.4 pg (26.0-34.0); MCHC 31.6 g/dL (31.0-37.0); MCV 86.8 fL (80.0-100.0); MEAN PLATELET VOLUME 8.8 fL (7.4-10.4); MONOCYTES 1.4 % (2-11); NEUTROPHILS 94.3 % (40-80); PLATELET COUNT 102 10x3/uL (130-400); RDW 19.2 % (11.5-14.5)
[2016-05-28 07:00] LABS: HEMATOCRIT 24.4 % (42.0-54.0); RBC 2.81 10x6/uL (4.20-6.10)
[2016-05-28 07:23] LABS: % SATURATION 28 % (15-55); IRON 61 ug/dl (35-150); TOTAL IRON BIND CAPACITY 212 ug/dl (260-445); UNSAT IRON BIND CAPACITY 151 ug/dl (150-375)
[2016-05-28 07:24] LABS: ALBUMIN 2.3 g/dL (3.4-5.0); ANION GAP 10.8 mmol/L (8-16); BILIRUBIN - DIRECT 0.25 mg/dL (0.00-0.30); BILIRUBIN - TOTAL 0.5 mg/dL (0.2-1.3); CALCIUM 8.3 mg/dL (8.5-10.1); CARBON DIOXIDE 33.2 mmol/L (21.0-32.0); CREATININE - SERUM 2.3 mg/dL (0.6-1.3); PHOSPHOROUS 5.7 mg/dL (2.5-4.9); PROTEIN - SERUM 5.8 g/dL (6.4-8.2); TROPONIN-I 0.054 ng/mL (0.000-0.060)
--- NOTE | 2016-05-28 08:30 | NUR ---
JACKIE TEJADA, RENAL, AT BEDSIDE FOR ASSESSMENT - ORDERED REC'D FOR 2 UNITS PRBC - LAWANDA GIVE WHEN AVAILABLE
--- NOTE | 2016-05-28 10:00 | NUR ---
CITY BAILIFF AT BEDSIDE - MEDICATIONS GIVEN - SEE MINDI - CPOC
--- NOTE | 2016-05-28 10:29 | NUR ---
RT INFORM ON NC AT 5L/NC.
--- NOTE | 2016-05-28 11:06 | NUR ---
ASSESSMENT COMPLETE - POX 88% - PLACED PT ON OXYMIZER UP TO 10/L - POX 91% - PAGED DR. RICHARDS - HYPOTESIVE 90s/30s hr 70S - AWAITING CALL BACK.
--- NOTE | 2016-05-28 11:15 | NUR ---
SPOKE TO DR. RICHARDS - INFORMED OF HYPOTENSION - WILL START 1ST OF 2 UNITS OF PRBC - WILL REPORT TO MD NEEDED. STOCK PITCHER
--- NOTE | 2016-05-28 11:53 | NUR ---
STARTED 1ST OF 2 UNITS PRBC - PT AA&OX3 - CPOC
--- NOTE | 2016-05-28 12:30 | NUR ---
RT INSTRUCTED PT TO LEAVE BIPAP MASK ON - PT CONTINUES TO BE CONFUSED AND IS RETAINING CO2 - CONSULTED DR. LOW - REC'D ORDER FOR BILAT SOFT WRIST RESTRAINTS - PLACED ON PT - EXPLAINED PROCESS TO PT. CPOC
[2016-05-28 13:11] LABS: TROPONIN-I 0.045 ng/mL (0.000-0.060)
--- NOTE | 2016-05-28 13:45 | NUR ---
DR. RICHARDS AND DR. STERLING AT [facility] FOR ASSESSMENT - REC'D CONSULT FOR DR. YEUNG FOR GI BLEED - UNIT SEC BRETT STAHL - AWAITING CALL BACK. 1400 SPOUSE AT BEDSIDE - DISCUSSED CODE - PT IS A FULL CODE - DRs. RICHARDS AND DEVANTE DISCUSSED S/S OF PT WITH SPOUSE. SPOUSE VERBALLIZED UNDERSTANDING
--- NOTE | 2016-05-28 14:25 | NUR ---
TALKED TO VOICE - INFORMED OF REPEAT CONSULT - MD AWARE OF H/H 08/28, 1ST OF 2 UNITS PRBC INFUSING - EPISODES OF HYPOTENSION, AND INTERMITTENT CONFUSION
--- NOTE | 2016-05-28 16:00 | NUR ---
SAM CLIFFORD AT BEDSIDE FOR ASSESSMENT - DISCUSSED PLAN OF CARE WITH PT AND SPOUSE. DR. YEUNG WITH F/U WITH PT TOMORROW 05/29/16 - PLAN FOR POSSIBLE EGD. I & O COMPLETED 2ND UNIT PRBC INFUSING
--- NOTE | 2016-05-28 16:53 | NUR ---
CONTACTED MARY MORELOS TO REVIEW TIME CHANGE FOR ATB (VANC AND MEPRERIDEM) ADMISTRATION THIS EVENEING AND RE TIME PLANNED VANC TROUGH. FAMILY IN PT'S ROOM VISITING CPOC
--- NOTE | 2016-05-28 17:00 | NUR ---
PT WATCHING TELEVISION - VOICED NO NEW NEEDS - FAMILY AT BEDSIDE - CPOC
--- NOTE | 2016-05-28 18:55 | NUR ---
SON AT BEDSIDE VISITING - MORE LUCID -COMPLETED LAST PRBS VSS. CPOC
--- NOTE | 2016-05-28 19:30 | NUR ---
REC'D TO CARE, ON BEDPAN - MED FOMED BROWN BM WITH SLIGHT BLOODY MUCOUS NOTED - SAMPLE TO LAB. PAKO-CARE DONE. PT REPOSITIONED UP IN BED. SOME CONFUSION NOTED. SON AT BS, UPDATE GIVEN. VSS. NO SIGN OF DISTRESS.
[2016-05-28 20:15] LABS: HEMOGLOBIN 10.8 g/dL (13.5-17.5)
[2016-05-28 20:16] LABS: HEMATOCRIT 33.5 % (42.0-54.0)
[2016-05-28 20:57] LABS: TROPONIN-I 0.065 ng/mL (0.000-0.060)
--- NOTE | 2016-05-28 21:00 | NUR ---
NO VISITORS. PO MEDS GIVEN PER MD ORDERS. PT BACK ON BIPAP - C/L IN REACH, ALARMS ON.
--- NOTE | 2016-05-28 22:00 | NUR ---
FAMILY ALLOWED BACK TO SEE PT. RU ON AT THIS TIME, VSS.
--- NOTE | 2016-05-28 23:08 | NUR ---
REASSESSMENT PER FLOWSHEET, NO ACUTE CHANGES. BIPAP ON. VSS. PT REMAINS PLEASANTLY CONFUSED, RESTING FOR SHORT PERIODS AT A TIME. ALARMS ON AND C/L IN REACH.
[2016-05-29] VITALS (24 sets, daily range): BP systolic 105–173; BP diastolic 43–107
--- NOTE | 2016-05-29 03:27 | NUR ---
REASSESSMENT PER FLOWSHEET, NO ACUTE CHANGES. REMAINS PLEASANTLY CONFUSED. VSS. NO SIGN OF DISTRESS. ALARMS ON AND C/L IN REACH.
[2016-05-29 04:55] LABS: BASOPHILS 0 % (0-2); EOSINOPHILS 0 % (0-7); HEMATOCRIT 34.4 % (42.0-54.0); HEMOGLOBIN 11.4 g/dL (13.5-17.5); IMMATURE GRANULOCYTES 1.6 % (0-5); LYMPHOCYTES 4.7 % (15-50); MCHC 33.1 g/dL (31.0-37.0); MCV 87.5 fL (80.0-100.0); MEAN PLATELET VOLUME 9.6 fL (7.4-10.4); MONOCYTES 3.1 % (2-11); NEUTROPHILS 90.6 % (40-80); PLATELET COUNT 92 10x3/uL (130-400); RDW 17.8 % (11.5-14.5)
--- NOTE | 2016-05-29 05:00 | NUR ---
PIV OUT, INTACT, DSG APPLIED. PT UP TO BSC. LINENS CHANGED. MOD FORMED BROWN STOOL. PAKO-CARE AND BACK TO BED.
[2016-05-29 05:11] LABS: RBC 3.93 10x6/uL (4.20-6.10); WBC 3.9 10x3/uL (4.8-10.8)
[2016-05-29 05:46] LABS: ALBUMIN 2.4 g/dL (3.4-5.0); ANION GAP 13.1 mmol/L (8-16); BILIRUBIN - TOTAL 0.46 mg/dL (0.2-1.3); CALCIUM 8.5 mg/dL (8.5-10.1); CARBON DIOXIDE 28.4 mmol/L (21.0-32.0); CREATININE - SERUM 1.9 mg/dL (0.6-1.3); MAGNESIUM - SERUM 2.1 mg/dL (1.8-2.4); POTASSIUM - SERUM 3.5 mmol/L (3.5-5.1)
[2016-05-29 05:49] LABS: TROPONIN-I 0.069 ng/mL (0.000-0.060)
--- NOTE | 2016-05-29 06:30 | NUR ---
NEW 20GA PIV SITED TO L HAND X 1 STICK. RESUMED IVFS. BACK ON BIPAP. ALARMS ON AND C/L IN REACH.
--- NOTE | 2016-05-29 07:30 | NUR ---
ASSESSMENT COMPLETE. PT DISORIENTED TO TIME AND SITUATION. DENIES PAIN. NSR, PACEMAKER ATRIAL PACING. NO EDEMA NOTED. NO RESP DISTRESS NOTED AT THIS TIME. GENERALIZED WEAKNESS. ACTIVE BOWEL SOUNDS. SEE FLOWSHEET FOR ADDITIONAL DETAILS. ON 4L OXYMISER.
--- NOTE | 2016-05-29 09:00 | NUR ---
FED PATIENT HIS BREAKFAST TRAY. SEEMS LUCID AT TIMES, ABLE TO STATE HE WAS IN REHAB PRIOR TO BEING HERE. MEDS GIVEN, PT DOES NOT APPEAR TO HAVE DIFFICULTY SWALLOWING.
--- NOTE | 2016-05-29 09:21 | NUR ---
NUTRITION MONITORING & EVAL CHART REVIEWED, ADA RENAL DIET STARTED. WILL PROVIDE CURRENT DIET, MONITOR PO INTAKE, PT PROGRESS. RD FOLLOWING
--- NOTE | 2016-05-29 11:30 | NUR ---
REASSESSMENT COMPLETE. SEE FLOWSHEET FOR DETAILS. PATIENT IN AND OUT OF CONFUSED STATE. ASKS "WHAT KIND OF BUSINESS DO YOU RUN?" BUT IS ABLE TO STATE HE IS IN THE HOSPITAL.
--- NOTE | 2016-05-29 13:04 | NUR ---
FAMILY AND PHYSICAL THERAPY AT BEDSIDE. TOOK PATIENT HIS DINNER TRAY. DENIES NEEDS. QUESTIONS ANSWERED.
--- NOTE | 2016-05-29 13:40 | NUR ---
PT IS AGITATED, SCREAMING OUT FOR HELP FROM THE POLICE. REORIENTED. TRIED TO FEED HIM LUNCH, PATIENT REFUSED TO EAT, KEPT SPITTING FOOD OUT AFTER GIVING HIM A BITE.
--- NOTE | 2016-05-29 15:10 | NUR ---
REASSESSMENT COMPLETE, SEE FLOWSHEET FOR DETAILS. DENIES PAIN
--- NOTE | 2016-05-29 17:00 | NUR ---
DR. YEUNG AT BEDSIDE. ORDERED EGD FOR 05/31 AT 1100
--- NOTE | 2016-05-29 19:30 | NUR ---
REC'D TO CARE, OUTREACH CONSULTANT PER FLOWSHEET. PT AWAKENS TO NAME, PLEASANTLY CONFUSED, NO SIGN OF DISTRESS. BIPAP MASK 60% ON - SOFT WRIST RESTRAINTS ON PER ORDER FOR PULLING AT MEDICAL LINES/TUBING. LUNG CTA, DIMINISHED. CM - SR/PACED. ABD OBESE, SOFT. GALVEZ CATH PATENT. THERESA KAUSHIK ON FOR TEMP 95.9 WILL CONT CLOSE MONITORING.
--- NOTE | 2016-05-29 21:00 | NUR ---
NO VISITORS AT THIS TIME. TEMP NOW 97.2, PT AWAKENS EASILY, DENIES NEEDS. C/L IN REACH.
--- NOTE | 2016-05-29 21:54 | NUR ---
AT BS. PT RESTING WITH EYES CLOSED.
--- NOTE | 2016-05-29 23:10 | NUR ---
REASSESSMENT PER FLOWSHEET, NO ACUTE CHANGES. NO SIGN OF DISTRESS. VSS.
[2016-05-30] VITALS (23 sets, daily range): BP systolic 103–170; BP diastolic 59–107
--- NOTE | 2016-05-30 02:22 | NUR ---
PT UP TO BSC WITH ASSIST X 1. MOD JORDI FORMED BM - SAMPLE TO LAB. PAKO-CARE, MOD BATH DONE. PT UP IN RECLINER. RESTRAINTS D/C'D, PT NOT PULLING AT LINES. STILL SOME CONFUSION, BUT MORE EASILY ORIENTED. O2 4L NC, POX 93%. ALARMS ON AND C/L IN REACH.
--- NOTE | 2016-05-30 03:30 | NUR ---
PCXR DONE. REASSESSMENT PER FLOWSHEET. PT MUCH MORE ALERT AND ORIENTED TO SELF, [place], AND ANSWERING QUESTIONS APPROP. GIVEN THE NEWSPAPER TO READ. VSS. C/L IN REACH.
[2016-05-30 03:52] LABS: BASOPHILS 0.1 % (0-2); EOSINOPHILS 0 % (0-7); HEMATOCRIT 36.9 % (42.0-54.0); IMMATURE GRANULOCYTES 1.7 % (0-5); MCH 28.6 pg (26.0-34.0); MCHC 32.5 g/dL (31.0-37.0); MCV 88.1 fL (80.0-100.0); NEUTROPHILS 91.2 % (40-80); PLATELET COUNT 105 10x3/uL (130-400); RBC 4.19 10x6/uL (4.20-6.10); RDW 18.2 % (11.5-14.5)
[2016-05-30 04:18] LABS: WBC 8.3 10x3/uL (4.8-10.8)
[2016-05-30 04:23] LABS: ALBUMIN 2.5 g/dL (3.4-5.0); BILIRUBIN - TOTAL 0.44 mg/dL (0.2-1.3); CALCIUM 8.5 mg/dL (8.5-10.1); CARBON DIOXIDE 29.8 mmol/L (21.0-32.0); CREATININE - SERUM 1.7 mg/dL (0.6-1.3); POTASSIUM - SERUM 3.8 mmol/L (3.5-5.1); PROTEIN - SERUM 6.2 g/dL (6.4-8.2)
--- NOTE | 2016-05-30 06:00 | NUR ---
NO VISITORS. PT UP IN CHAIR, ALERT. READING PAPER. STILL SOME CONFUSION, BUT EASILY REORIENTED. C/L IN REACH.
--- NOTE | 2016-05-30 07:20 | NUR ---
ASSESSMENT COMPLETE. SEE FLOWSHEET FOR DETAILS. ORIENTED EXCEPT TO TIME, STATES IT IS 1970'S. EASILY REORIENTED. ABLE TO STATE PRESIDENT AND CURRENT EVENTS. S1S2 NOTED, RADIAL AND PEDAL PULSES PALP. NSR, ATRIAL PACED WITH PPM. RUL, RML, ANGELES CLEAR, DIMINISHED LOWER LOBES. 2L NC. ACTIVE BOWEL SOUNDS X4. BROUGHT PT BREAKFAST TRAY. GENERALIZED WEAKNESS. FOR OTHER DETAILS SEE FLOWSHEET. DENIES NEEDS. SEE IV FLOWSHEET.
--- NOTE | 2016-05-30 08:20 | NUR ---
ASSISTED PATIENT TO CALL . DENIES OTHER NEEDS
--- NOTE | 2016-05-30 09:22 | NUR ---
SPOKE WITH PATIENT'S , ASSISTING PATIENT TO CALL .
--- NOTE | 2016-05-30 11:40 | NUR ---
REASSESSMENT COMPLETE. SEE FLOWSHEET FOR DETAILS. PT NOW ORIENTED.
--- NOTE | 2016-05-30 13:01 | NUR ---
DR. HALL AT BEDSIDE. DR. LARRY AT BEDSIDE.
--- NOTE | 2016-05-30 13:02 | NUR ---
INTERNAL COMBUSTION ENGINE INSPECTOR SPEAKING WITH PATIENT'S .
--- NOTE | 2016-05-30 13:17 | NUR ---
Is the patient Alert and Oriented? No 0 * How many steps to enter\exit or inside your home? 8-9 0 * PCP DR. CORCORAN 0 * Pharmacy [facility] [address] * Preadmission Environment Acute Inpatient Rehab 0 * Facility Name [facility] 0 * ADLs Independent 0 * Equipment BIPAP Nebulizer Oxygen Rolling Walker 0 * Other Equipment PATIENT GETS DME FROM [facility] 0 * List name and contact numbers for known caregivers / representatives who currently or will assist patient after discharge: SPOUSE: RYLEE GRAY [phone] 0 * Community resources currently utilized None 0 * Additional services required to return to the preadmission environment? Yes 0 * Can the patient safely return to the preadmission environment? No 0 * Has this patient been hospitalized within the prior 30 days at any hospital? Yes PATIENT WAS ADMITTED TO ICU AFTER RAPID RESPONSE ON REHAB. HE HAD RESPIRATORY FAILURE. PRIOR THE THIS ADMIT PATIENT WAS LIVING AT HOME WITH HIS , RYLEE. SHE STATES HIS PCP IS DR. CORCORAN. HE GETS HIS MEDICATION FROM [facility] ON [address] PATIENT VAZQUEZ BIPAP, O2 PORTABLE AND AT HOME, WALKER AND WHEELCHAIR. PATIENT GETS HIS DME FROM [facility]. PATIENT MAY RETURN TO REHAB. THEIR PLAN IS TO EVENTUALLY RETURN HOME WITH HOME HEALTH FOR PT. THERE ARE 8-9 STEPS TO ENTER HIS HOME. AT DISCHARGE PATIENT'S WOULD LIKE TO HAVE A HOSPITAL BED, SCD'S AND BEDSIDE COMMODE. DISCHARGE NEEDS ARE PENDING AT THIS TIME. CM TO FOLLOW.
--- NOTE | 2016-05-30 15:00 | NUR ---
REASSESSMENT COMPLETE, SEE FLOWSHEET FOR DETAILS.
--- NOTE | 2016-05-30 17:00 | NUR ---
GAVE PATIENT DINNER TRAY. PATIENT REQUESTED TO GO BACK TO BED, ASKED HIM TO EAT WHILE IN CHAIR. DENIES OTHER NEEDS
--- NOTE | 2016-05-30 18:20 | NUR ---
ASSISTED PATIENT TO BED WITH ASSIST PERSON X2, PATIENT VERY WEAK
--- NOTE | 2016-05-30 19:00 | NUR ---
REC'D TO CARE, UP IN BED ON PHONE. NO SIGN OF DISTRESS. C/L IN REACH.
--- NOTE | 2016-05-30 19:30 | NUR ---
MACHINE PRINTER PER FLOWSHEET. PT WITH MILD CONFUSION, ANSWERS MOST QUESTIONS APPROP. LUNGS CTA, DIMINISHED BASES. CM - SR/PACED. IVF INFUSING TO L WRIST PIV, NO REDNESS OR SWELLING AT SITE. ABD OBESE, BS ACTIVE. GALVEZ CATH PATENT AND DRAINING ROLO PINK TINGED URINE. PT DENIES PAIN OR SOB. C/L IN USE.
--- NOTE | 2016-05-30 20:45 | NUR ---
PO MEDS GIVEN PER MD ORDERS. PT VERBALIZES UNDERSTANDING OF NPO AFTER MN FOR EGD IN AM. BIPAP ON FOR PT REQUEST TO GO TO SLEEP. ALARMS ON AND C/L IN REACH.
--- NOTE | 2016-05-30 21:37 | NUR ---
NO VISITORS, PT RESTING WITH EYES CLOSED, BIPAP ON. VSS.
--- NOTE | 2016-05-30 23:15 | NUR ---
REASSESSMENT PER FLOWSHEET. NO ACUTE CHANGES. PT RESTING QUIETLY, NO SIGN OF DISTRESS. ALARMS ON AND C/L IN REACH.
[2016-05-31] VITALS (24 sets, daily range): BP systolic 135–182; BP diastolic 62–119
--- NOTE | 2016-05-31 01:17 | NUR ---
SBP 176. PRN CLONIDINE GIVEN.. PT COOPERATIVE, BACK TO REST EASILY.
--- NOTE | 2016-05-31 03:17 | NUR ---
REASSESSMENT PER FLOWSHEET. NO ACUTE CHANGES. PT RESTING AWAKENS TO NAME, SLIGHT CONFUSION, REORIENTED BY NURSE. DENIES PAIN OR NEEDS. C/L IN REACH.
[2016-05-31 04:17] LABS: BASOPHILS 0 % (0-2); EOSINOPHILS 0 % (0-7); HEMOGLOBIN 11.4 g/dL (13.5-17.5); IMMATURE GRANULOCYTES 2.5 % (0-5); LYMPHOCYTES 4.9 % (15-50); MCH 28.4 pg (26.0-34.0); MCHC 32.6 g/dL (31.0-37.0); MCV 87.3 fL (80.0-100.0); MEAN PLATELET VOLUME 9.2 fL (7.4-10.4); MONOCYTES 1.3 % (2-11); NEUTROPHILS 91.3 % (40-80); PLATELET COUNT 95 10x3/uL (130-400); RBC 4.01 10x6/uL (4.20-6.10); RDW 17.9 % (11.5-14.5); WBC 8.8 10x3/uL (4.8-10.8)
[2016-05-31 04:33] LABS: ALBUMIN 2.5 g/dL (3.4-5.0); ANION GAP 11.3 mmol/L (8-16); BILIRUBIN - TOTAL 0.44 mg/dL (0.2-1.3); CALCIUM 8.3 mg/dL (8.5-10.1); CARBON DIOXIDE 29.1 mmol/L (21.0-32.0); CREATININE - SERUM 1.4 mg/dL (0.6-1.3); POTASSIUM - SERUM 3.4 mmol/L (3.5-5.1); PROTEIN - SERUM 5.8 g/dL (6.4-8.2)
--- NOTE | 2016-05-31 05:06 | NUR ---
K+ 3.4 - COVERAGE PER ELECTROLYTE PROTOCOL INITIATED.
--- NOTE | 2016-05-31 07:15 | NUR ---
ASSESSMENT COMPLETE. ORIENTED EXCEPT TO TIME. DENIES PAIN. DIMINISHED RLL, LLL. S1S2 NOTED, RADIAL AND PEDAL PULSES PALP. V PACED ON MONITOR, PACEMAKER. ACTIVE BOWEL SOUNDS X4. GENERALIZED WEAKNESS. AMBULATE WITH ASSIST. 35% BIPAP RIGHT NOW. NPO SINCE MIDNIGHT. REQUESTS FOOD, TOLD HIM WE HAVE TO WAIT TILL AFTER THE PROCEDURE. DENIES OTHER NEEDS. LW PIV PATENT. FOR OTHER ASSESSMENT FINDINGS SEE FLOWSHEET. SEE IV FLOWSHEET
--- NOTE | 2016-05-31 08:06 | EC ---
PATIENT:HÉCTOR GRAY DATE OF SERVICE: 05/27/16 SEX: M MEDICAL RECORD: [id number] DATE OF : 41 LOCATION:[facility] D230 AGE OF PATIENT: 71 ADMISSION DATE: 05/27/16 REFERRING PHYSICIAN: INTERPRETING PHYSICIAN: MAGY GATICA MD ECHOCARDIOGRAM REPORT ECHO CHARGES 5 ECHO LIMITED 1 DOPPLER ECHO COLOR FLOW 2 DOPPLER ECHO PULSE CLINICAL DIAGNOSIS: CHF ECHOCARDIOGRAPHIC MEASUREMENTS (adult normal given) AC root (d.<3.7cm) 0 LV Septum d (<1.2 cm> 0 Valve Excursion 0 LV Septum (systole) 0 Left Atria (s.<4.0cm> 0 LVPW d(<1.2cm) 0 RV (d.<2.3cm) 2.4 LVPW (sytole) 0 LV diastole(<5.6CM) 0 MV E-F(>70mm/sec) 0 LV systole 0 LVOT Diameter 1.8 MV exc.(>10mm) 0 Est.ejection fraction (50-75%) Pericardial Effusion N DOPPLER: LVIT 0 A 0 E 0 LA 0 RVSP 34.0 LVOT 113 AOP1/2T 0 Asc. Ao 197 RVOT 0 RA 0 PA 0 AV Gradient Peak 16.0 AV Mean 9.2 AV Area 1.2 MV Gradient Peak 0 MV Mean 0 MV Area 0 COMMENTS: LIMITED STUDY (2-D,COLOR, & LIMITED DOPPLER) COMPLETE ECHO DONE ON 05/12/16 Alum Plant Operator: Jeff CORDOBA Stator Plate Washer:1 Dr. Gatica TAPE# PACS DATE OF SERVICE: 05/28/2016 Limited Echocardiogram FINDINGS: 1. Left ventricular chamber size is within normal limits. Left ventricular systolic function is mildly reduced, overall ejection fraction 40%. 2. Left atrium, right atrium, and right ventricular chamber sizes are within normal limits. ECHOCARDIOGRAM REPORT [id number] HÉCTOR GRAY 3. Valvular structures have normal structure and motion. 4. Doppler interrogation reveals mild mitral regurgitation, mild tricuspid regurgitation, no other valvular insufficiency or stenosis and pulmonary systolic pressure is estimated at 34 mmHg. 5. No evidence of pericardial effusion or left ventricular thrombus. TRANSINT:[id number] Voice Confirmation ID: [id number] DOCUMENT ID: [id number] MAGY GATICA MD at 0806 CC: [id number] DICTATION DATE: 05/28/16 1114 TEMPERING MACHINE OPERATOR: 05/28/16 1404 ADM IN [place] [id number] [facility], [facility]
--- NOTE | 2016-05-31 08:14 | NUR ---
DR. CORCORAN AT BEDSIDE. NO NEW ORDERS
--- NOTE | 2016-05-31 09:15 | NUR ---
KEPT PATIENT NPO, WILL GIVE MEDS AFTER PROCEDURE.
--- NOTE | 2016-05-31 10:04 | NUR ---
NUTRITION MONITORING & EVAL PT CURRENTLY NPO FOR EGD. WILL PROVIDE DIET WHEN RESUMED. MONITOR PT PROGRESS. RD FOLLOWING
--- NOTE | 2016-05-31 11:00 | NUR ---
VERIFIED WITH PATIENT AND THAT PATIENT IS FULL CODE
--- NOTE | 2016-05-31 11:00 | NUR ---
AT BEDSIDE. GALVEZ LEAKING, CHANGED BEDPAD AND CHECKED BULB. DRAINED GALVEZ AND PLACED BACK ON BLADDER TRAINING, ONLY HAD 150 OUT AFTER UNCLAMPING
--- NOTE | 2016-05-31 11:15 | NUR ---
REASSESSMENT COMPLETE, SEE FLOWSHEET FOR DETAILS. MINIMAL CHANGES
--- NOTE | 2016-05-31 11:48 | NUR ---
DR. ROB AT BEDSIDE PREFORMING EGD. FAMILY IN WAITING AREA.
--- NOTE | 2016-05-31 13:00 | NUR ---
EATING LUNCH TRAY. DENIES NEEDS. AM MEDS GIVEN
--- NOTE | 2016-05-31 15:00 | NUR ---
REASSESSMENT COMPLETE, SEE FLOWSHEET FOR DETAILS.
--- NOTE | 2016-05-31 17:11 | NUR ---
SHEETS CHANGED. PT UP TO CHAIR FOR DINNER
--- NOTE | 2016-05-31 18:13 | NUR ---
RESITED PATIENT'S PIV TO LAC, 22G
--- NOTE | 2016-05-31 19:00 | NUR ---
REPORT RECEIVED AND ASSESSMENT COMPLETED. SEE FLOWSHEET FOR FULL DETAILS. VSS. WILL MONITOR
--- NOTE | 2016-05-31 19:00 | NUR ---
REPORT RECEIVED AND ASSESSMENT COMPLETED. SEE FLOWSHEET FOR FULL DETAILS.
--- NOTE | 2016-05-31 21:00 | NUR ---
2100 meds given. no other changes at this time. vss. will continue to monitor for changes
--- NOTE | 2016-05-31 23:00 | NUR ---
REASSESSMENT COMPLETED. SEE FLOWSHEET. FOR FULL DETAILS
[2016-06-01] VITALS (15 sets, daily range): BP systolic 127–185; BP diastolic 42–97
--- NOTE | 2016-06-01 01:00 | NUR ---
NO CHANGES IN STATUS AT THIS TIME. VSS. WILL MONITOR
--- NOTE | 2016-06-01 03:00 | NUR ---
REASSESSMENT COMPLETED SEE FLOWSHEET
[2016-06-01 04:09] LABS: BASOPHILS 0 % (0-2); EOSINOPHILS 0 % (0-7); HEMATOCRIT 35.9 % (42.0-54.0); HEMOGLOBIN 11.6 g/dL (13.5-17.5); IMMATURE GRANULOCYTES 2.3 % (0-5); LYMPHOCYTES 4.6 % (15-50); MCH 28.5 pg (26.0-34.0); MCHC 32.3 g/dL (31.0-37.0); MCV 88.2 fL (80.0-100.0); MEAN PLATELET VOLUME 9.6 fL (7.4-10.4); MONOCYTES 1.4 % (2-11); NEUTROPHILS 91.7 % (40-80); PLATELET COUNT 95 10x3/uL (130-400); RBC 4.07 10x6/uL (4.20-6.10); RDW 18.1 % (11.5-14.5); WBC 7.4 10x3/uL (4.8-10.8)
[2016-06-01 04:28] LABS: ALBUMIN 2.6 g/dL (3.4-5.0); ANION GAP 11.1 mmol/L (8-16); BILIRUBIN - TOTAL 0.51 mg/dL (0.2-1.3); CALCIUM 8.4 mg/dL (8.5-10.1); CARBON DIOXIDE 30.9 mmol/L (21.0-32.0); CREATININE - SERUM 1.7 mg/dL (0.6-1.3); MAGNESIUM - SERUM 2.2 mg/dL (1.8-2.4); PROTEIN - SERUM 5.9 g/dL (6.4-8.2)
--- NOTE | 2016-06-01 05:46 | NUR ---
NO CHANGES IN STATUS AT THIS TIME. VSS. WILL MONITOR
--- NOTE | 2016-06-01 09:00 | NUR ---
PT UP WITH PHYSICAL THERAPY TO BEDSIDE COMMODE. PT HAD BM. WILL GET UP TO CHAIR. VITAL SIGNS STABLE
--- NOTE | 2016-06-01 09:32 | PRO ---
PATIENT:HÉCTOR GRAY MEDICAL RECORD: [id number] : 41 LOCATION:D.[facility] D.2309 ADMISSION DATE: 05/27/16 PROCEDURE PERFORMED BY: TE DE LEON MD DATE OF PROCEDURE: 05/31/2016 TEST ENGINEER: Te De Leon MD PROCEDURE: EGD for hemorrhage controlled with cauterization of a couple of tiny AVMs and hemoclipping of a couple of small ulcerations. INDICATION: The patient is a 71-year-old white male with multiple comorbidities with severe lung disease/COPD, as well as significant organic heart disease, who basically is now for EGD to look for cause of recurrent anemia. He has not shown any signs or gross gastrointestinal bleeding of occasional scant, bright red blood per rectum from hemorrhoidal disease. He has not had any melena. He does have a history of chronic NSAID-induced peptic ulcer disease that was last EGD a year or so ago revealed a healed ulcer. Due to the fact that you could see that he has dropped his hematocrit, he is now for repeat EGD. PREMEDICATION: Taper anesthesia. INSTRUMENT: Olympus video gastroscope. FINDINGS: The endoscope was passed through the oropharynx to the second portion of duodenum without difficulty. The esophagus was completely normal. The stomach was entered and was remarkable for mild to moderate atrophic-appearing antral gastritis associated with somewhat unhealthy looking tissue there and a couple of tiny possible AVMs in the antrum. These were not bleeding, but I went ahead and cauterized them in light of his propensity to drop his hematocrit. He also had evidence of his previous chronic antral ulcer, which looked more like an indented scar anything else in the prepyloric area. Again, this was not bleeding, but was a little bit friable to the touch. I therefore placed a couple of Hemoclips on this area. The rest of the stomach was unremarkable. There is not a drop of blood seen in the stomach at all. The duodenum was entered and was remarkable for what looked like a small chronic ulceration on the posterior wall, right at the angulation between the duodenal bulb and second portion of duodenum. There were 2 areas around this old scarred ulceration that looked like a potentially have some friability and bleeding. I therefore placed 2 Hemoclips there as well. The rest of exam was normal. The patient tolerated the procedure well without complication. IMPRESSION: 1. Mild to moderate atrophic-appearing antral gastritis associated with 2 questionable tiny AVMs in the antrum, now status post cauterization, as well as a couple of old scarred ulcerations, one in the distal stomach and one in the proximal second portion of duodenum, now status post Hemoclip placement. Again, there was no bleeding seen during this exam, but I treated everything that looked like it had the potential to have any bleeding at all. PLAN: 1. Monitor hematocrit. 2. The patient needs to be on long-term PPI therapy, Protonix 40 mg p.o. b.i.d., as well as Carafate 1 gram q.i.d. 3. The patient should never take any type of aspirin or NSAIDs under any PROCEDURE NOTE [id number] HÉCTOR GRAY circumstance whatsoever. He is currently on Plavix, which was obvious while we were doing the procedure due to his friability present of his gastric mucosa. TRANSINT:[id number] Voice Confirmation ID: [id number] DOCUMENT ID: [id number] TE DE LEON MD at 0932 CC: ARNIE HALL MD, FERNIE AVILEZ MD, CESAR STOKES MD and [id number] DICTATION DATE: 05/31/16 1220 SHIP'S OFFICER: 05/31/16 1739 ADM IN [place] [id number] [place] [address]
--- NOTE | 2016-06-01 11:00 | NUR ---
PT SITTING UP IN CHAIR EATING INDEPENDENTLY. VITAL SIGNS STABLE. WILL TRANSFER TO FLOOR TODAY
--- NOTE | 2016-06-01 13:00 | NUR ---
PT REMAINS UP IN CHAIR WITH NO CHANGES OR COMPLAINTS AT THIS TIME. WILL CONTINUE TO MONITOR
--- NOTE | 2016-06-01 16:05 | NUR ---
RECEIVED PT VIA WHEELCHAIR BY ICU NURSE. PT IS ALERT AND ORIENTED. UP WITH ASSISTANCE. IV SEEN TO LEFT AC THAT IS CURRENTLY SALINE LOCKED. ON 02 AT 2L VIA NC. GALVEZ CATHETER SEEN WITH BLOOD-TINGED URINE. SCDS ARE ON. ICU NURSE STATED SHIFT ASSESSMENT HAS ALREADY BEEN DONE TWICE TODAY. WILL DO QUICKSTART AND AWAIT NEW ORDERS. WILL CONTINUE TO MONITOR.
--- NOTE | 2016-06-01 16:21 | NUR ---
1610 PT TRANSFERRED TO [facility] 2 VIA WALKER WITH PHYSICAL THERAPY ON 2L NC. BELONDGINGS WITH PATIENT. REPORT CALLED TO GEETA SHRESTHA. PT STABLE AT THIS TIME.
--- NOTE | 2016-06-01 16:25 | NUR ---
Rehab Prescreening Consult recieved and the chart has been reviewed. He is well know from a recent visit to the rehab. He had some complications while here and was transferred back to the acute hospital. He remains a good rehab candidate and meets criteria. He will be accepted back to the rehab when the physician feels he is medically stable enough to activley participate in the required therapy 3 hrs a day 5 days a week. Nan Dickens RN Clinical Liaison, Rehab
--- NOTE | 2016-06-01 18:24 | NUR ---
PT IS CURRENTLY LAYING IN BED ON BACK WITH BI-PAP ON WITH EYES CLOSED RESTING. 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 NO NEED AT CURRENT TIME. WILL CONTINUE TO MONITOR.
--- NOTE | 2016-06-01 19:44 | NUR ---
RECEIVED REPORT, PT SLEEPING WITH BIPAP ON, BED IS LOW, SRX 2, CALL LIGHT IN REACH, WILL CONTINUE TO MONITOR
[2016-06-02] VITALS: BP 181/79
--- NOTE | 2016-06-02 02:34 | NUR ---
ASSESSMENT COMPLETE SEE FLOW SHEET, BED ALARM IS ON, PT SLEEPING WITH BIPAP ON, CALL LIGHT IN REACH, WILL CONTINUE TO MONITOR
[2016-06-02 04:00] VITALS: BP 159/71
[2016-06-02 05:22] LABS: HEMATOCRIT 36.2 % (42.0-54.0); HEMOGLOBIN 11.9 g/dL (13.5-17.5); MCH 28.6 pg (26.0-34.0); MCHC 32.9 g/dL (31.0-37.0); RBC 4.16 10x6/uL (4.20-6.10); RDW 17.8 % (11.5-14.5)
[2016-06-02 05:23] LABS: BASOPHILS 0.1 % (0-2); EOSINOPHILS 0 % (0-7); IMMATURE GRANULOCYTES 3.8 % (0-5); LYMPHOCYTES 3.4 % (15-50); MEAN PLATELET VOLUME 9.5 fL (7.4-10.4); MONOCYTES 3.3 % (2-11); NEUTROPHILS 89.4 % (40-80); PLATELET COUNT 96 10x3/uL (130-400)
[2016-06-02 05:35] LABS: WBC 9.5 10x3/uL (4.8-10.8)
[2016-06-02 05:50] LABS: ALBUMIN 2.5 g/dL (3.4-5.0); ANION GAP 8.2 mmol/L (8-16); BILIRUBIN - TOTAL 0.62 mg/dL (0.2-1.3); CALCIUM 8.3 mg/dL (8.5-10.1); CARBON DIOXIDE 31.8 mmol/L (21.0-32.0); CREATININE - SERUM 1.3 mg/dL (0.6-1.3); MAGNESIUM - SERUM 2.2 mg/dL (1.8-2.4); PHOSPHOROUS 3.3 mg/dL (2.5-4.9); PROTEIN - SERUM 5.7 g/dL (6.4-8.2)
[2016-06-02 08:19] VITALS: BP 172/68
--- NOTE | 2016-06-02 08:31 | NUR ---
0727-IN DROPLET PRECAUTIONS, DR CORCORAN HERE TO SEE PATIENT. BEDSCALE WEIGHT 227.9 LBS. ON EP, WILL LOOK AT LABS. NS INFUSING AT KVO STATUS TO LEFT AC AREA. LEFT PACEMAKER SEEN. ON 2L PER NC. BILATERAL SCD'S ARE ON. 0824-PER JB MONTEJO IN INFECTION CONTROL, PATIENT IS IN CONTACT ISOLATION.
--- NOTE | 2016-06-02 09:02 | NUR ---
ON EP, LAB VALUES ARE NORMAL.
--- NOTE | 2016-06-02 10:10 | NUR ---
PLACED PATIENT ON 1500 CC FLUID RESTRICTION, CALLED NADER IN DIETARTY AND ASKED HER TO SEND DRY TRAYS. SPOKE WITH PATIENT AND ABOUT THIS.
[2016-06-02 12:18] VITALS: BP 145/50
--- NOTE | 2016-06-02 13:06 | NUR ---
Rehab visited with the patient this AM. He is agreeable and eager to resume his therapy. He is in isolation and needs a private room. Rehab does not have a private room open at this time would like to plan on admission when one is available Sunday or Sunday. Spoke to the CM Juan Pascual re this. Nan Dickens RN CL
--- NOTE | 2016-06-02 13:59 | NUR ---
Nutrition follow-up: Diet: ADA consistent CHO with 1500 ml FR PO intake 75-100% of meals Labs reviewed +BM Wt: 206# PO intake is good at this time. RDN following.
--- NOTE | 2016-06-02 16:20 | NUR ---
Patient Name: HÉCTOR GRAY Encounter No: [id number] : 1945 Primary Insurance: MEDICARE A & B Anticipated DC Date: Planned Disposition: Inpatient Rehab Facility External Planned Provider: [facility] INPATIENT [facility] DCP follow-up note: CM SPOKE TO EJ OF [facility] INPATIENT REHAB, REHAB PLANS TO ACCEPT PT AT DISCHARGE WHEN STABLE. CM SPOKE TO PT AND SPOUSE IN ROOM, BOTH IN AGREEMENT WITH DISCHARGE TO INPATIENT REHAB WHEN PT IS STABLE. PT'S SPOUSE REPORTS SHE IS WORRIED THAT IT IS TOO SOON AT THIS TIME FOR DISCHARGE PLANNING BUT WHEN STABLE, INPATIENT REHAB AT [place] IS WHAT THEY WANT TO DO. CM TO CONTINUE TO FOLLOW AND ASSIST NEEDED. Gilles Pascual, CASE MANAGEMENT
[2016-06-02 16:51] VITALS: BP 141/63
[2016-06-02 19:00] VITALS: BP 146/68
--- NOTE | 2016-06-02 20:09 | NUR ---
RECEIVED REPORT, AT BEDSIDE, PT SITTING UP IN CHAIR, DENIES ANY NEEDS, CALL LIGHT IN REACH, WILL MONITOR
[2016-06-03 07:33] VITALS: BP 153/71
[2016-06-03 08:00] VITALS: BP 125/79
[2016-06-03 14:47] LABS: BASOPHILS 0.1 % (0-2); EOSINOPHILS 0 % (0-7); HEMATOCRIT 35.2 % (42.0-54.0); HEMOGLOBIN 11.5 g/dL (13.5-17.5); IMMATURE GRANULOCYTES 3.7 % (0-5); MCH 28.6 pg (26.0-34.0); MCHC 32.7 g/dL (31.0-37.0); MCV 87.6 fL (80.0-100.0); MEAN PLATELET VOLUME 9.4 fL (7.4-10.4); MONOCYTES 0.6 % (2-11); NEUTROPHILS 90.6 % (40-80); PLATELET COUNT 97 10x3/uL (130-400); RBC 4.02 10x6/uL (4.20-6.10); RDW 18.1 % (11.5-14.5); WBC 9.3 10x3/uL (4.8-10.8)
[2016-06-03 15:03] LABS: ANION GAP 8.7 mmol/L (8-16); CARBON DIOXIDE 31.6 mmol/L (21.0-32.0); CREATININE - SERUM 1.5 mg/dL (0.6-1.3); MAGNESIUM - SERUM 2.2 mg/dL (1.8-2.4); PHOSPHOROUS 2.1 mg/dL (2.5-4.9); POTASSIUM - SERUM 4.3 mmol/L (3.5-5.1)
[2016-06-03 20:00] VITALS: BP 140/71
--- NOTE | 2016-06-03 23:57 | NUR ---
INITIAL ROUNDS COMPLETED AT 1920 HRS PT DENEID ANY DISCOMFORT. ASSESSMETN COMPELTED AT 2030 HRS. VSS. O2 3.5LNC. IV TO RIJ WITH NS AT 10CC/HR. IV PATENT. BRUISES NOTED TO BIALT ARMS. GENERALIZED EDEMA. GALVEZ DRAINING BLOOD TINGED URINE. SCD'S REMOVED AND SKIN INSPECTED. NO BREAKDOWN NOTED. DRESSING TO BUTTOCKS CLEAN, DRYA ND INTACT. PM FSBS 225. 8 UNITS REG INSULIN GUIVEN SUB-Q TO UPPER R ARM PER S/S. PM SNACK SERVED AND PM MEDS GIVEN. PT CURRENTLY RESTING WITH EYES CLOSED. RESP EVEN AND REGULAR. BIPAP IN USE. SR UP X2, CALL LIGHT WITHIN REACH.
[2016-06-04] VITALS: BP 178/74
--- NOTE | 2016-06-04 01:08 | NUR ---
PT RESTING WITH EYES CLOSED. RESP EVEN AND REGULAR. BIPAP IN USE. SR UP X2, CALL LIGHT WITHIN REACH AND BED ALARM ON.
--- NOTE | 2016-06-04 03:39 | NUR ---
PT RESTING WITH EYES CLOSED. RESP EVEN AND REGULAR. SR UP X2, CALL LIGHT WITHIN REACH.
[2016-06-04 04:00] VITALS: BP 156/68
--- NOTE | 2016-06-04 04:37 | NUR ---
PT RESTING WITH EYES CLOSED. RESP EVEN AND REGULAR. SR UP X2,CALL LIGHT WITHIN REACH.
--- NOTE | 2016-06-04 05:48 | NUR ---
VSS THROUGHOUT NGIHT. PT DENIED ANY DISCOMFORT. NEEDS MET; WILL CONTINUE TO MONITOR.
[2016-06-04 06:09] LABS: ANION GAP 7.8 mmol/L (8-16); CALCIUM 8.1 mg/dL (8.5-10.1); CARBON DIOXIDE 33.5 mmol/L (21.0-32.0); CREATININE - SERUM 1.2 mg/dL (0.6-1.3); POTASSIUM - SERUM 4.3 mmol/L (3.5-5.1)
[2016-06-04 08:00] VITALS: BP 146/80
--- NOTE | 2016-06-04 10:46 | NUR ---
ALERT AND ORIENTED X4. PHYSICAL THERAPY ASSIST OOB TO CHAIR. BED BATH AND LINEN CHANGE COMPLETE. DENIES PAIN. NOSE BLEEDING FROM OXYGEN. PROVIDE WET WIPES FOR CLEANING. OXYGEN THERAPY FOR SOB. DENIES ANY NEEDS. SCDs OFF WHILE OOB. CHAIR LOCKED. CALL LIGHT IN REACH.
[2016-06-04 16:00] VITALS: BP 151/67
--- NOTE | 2016-06-04 20:15 | NUR ---
INITIAL ROUNDS COMPLETED AT 191 HRS. PT SITTING UP IN A CHAIR. DENIES ANY DISCOMFORTR. ASSESSMETN COMPLETED AT 1954 HRS. O2 3.5LNC. LUNGS DIMINISHED INBASES BILAT. IV TO RTLIJ WITH NS AT 10CC/HR. IV PATENT. GALVEZ DRAINING YELLOW URINE. DRESSING TO BUTTOCKS CLEAN,DRY AND INTACT. STAGE 1 NOTED TO ANTERIOR SCROTUM APPROX 2CM IN DIAMEMTER. TRACE PEDAL EDEMA NOTED. PINK. PLABABLE PEDAL PULSES. SCD'S OFF WHILE UP IN CHAIR. WILL CONTINUE TO MONITOR. SR UP X2,CALL LIGHT CHITO KOEHLER.
[2016-06-04 22:11] VITALS: BP 130/62
--- NOTE | 2016-06-04 22:14 | NUR ---
PM MEDS GIVNE. FSBS 246. 8 UNITS REG INSULIN GIVEN SUB-Q TO UPPER L ARM PER S/S/. PM MEDS GIVEN. WILL CONTINUE TO MONITOR.
--- NOTE | 2016-06-04 23:24 | NUR ---
PT VERY WEAK. STAFF X3 TO ASSIST PT FROM CHAIR TO BED. DRESSING TO BUTTOCKS CLEAN, DRY AND INTACT. BATH DONE, BED LINENS CHANGED. GALVEZ CARE DONE. BRENDA'S APPLIED TO SCROTUM. SCD'S PLACED ON BILAT LOWE R LEGS. WILL CONTINUE TO MONITOR. SR UP X2, CALL LIGHT WITHIN REACH.
[2016-06-05] VITALS: BP 115/59
--- NOTE | 2016-06-05 00:41 | NUR ---
PT RESTING WITH EYES CLOSED. RESP EVEN AND REGULAR. SR UP X2,CALL LIGHT WITHIN REACH AND BED ALARM. BIPAP IN USE.
--- NOTE | 2016-06-05 02:48 | NUR ---
PT RESTING WITH EYES CLOSED. RESP EVEN ADN REGULAR. SR UP X2, CALL LIGHT WITHIN REACH.
--- NOTE | 2016-06-05 04:42 | NUR ---
PT RESTING WITH EYES CLOSED. RESP EVEN AND REGULAR. SR UP X2, CALL LIGHT WITHIN REACH.
[2016-06-05 05:24] LABS: BASOPHILS 0 % (0-2); EOSINOPHILS 0 % (0-7); HEMATOCRIT 33.8 % (42.0-54.0); HEMOGLOBIN 10.9 g/dL (13.5-17.5); IMMATURE GRANULOCYTES 4.7 % (0-5); LYMPHOCYTES 3.2 % (15-50); MCH 28.3 pg (26.0-34.0); MCHC 32.2 g/dL (31.0-37.0); MCV 87.8 fL (80.0-100.0); MEAN PLATELET VOLUME 10.4 fL (7.4-10.4); MONOCYTES 3.3 % (2-11); NEUTROPHILS 88.8 % (40-80); PLATELET COUNT 112 10x3/uL (130-400); RBC 3.85 10x6/uL (4.20-6.10); RDW 17.9 % (11.5-14.5)
[2016-06-05 05:40] LABS: ANION GAP 8.2 mmol/L (8-16); CALCIUM 8.1 mg/dL (8.5-10.1); CARBON DIOXIDE 32.8 mmol/L (21.0-32.0); CREATININE - SERUM 1.2 mg/dL (0.6-1.3); PHOSPHOROUS 2.9 mg/dL (2.5-4.9)
[2016-06-05 06:17] VITALS: BP 145/68
--- NOTE | 2016-06-05 06:28 | NUR ---
VSS THROUGHOUT NIGHT. PT DENIED ANY DISCOMFORT. NEEDS MET;WILL CONTINUE TO MONITOR.
[2016-06-05 10:10] VITALS: BP 146/73
--- NOTE | 2016-06-05 11:16 | NUR ---
ALERT AND ORIENTED X4. AMBULATING IN XIONG ASSISTED BY PHYSICAL THERAPY. WHILE AMBULATING TO BACK TO ROOM WITH PT AND WALKER PATIENT STATES, "I CAN'T DO IT, MY LEGS ARE GIVING OUT." RIGHT LEG NO BEARING WEIGHT. PHYSICAL THERAPY LOWER TO FLOOR TO PREVENT FALL. FOUR PERSON ASSIST UP TO CHAIR. DENIES PAIN. SOB TREATED WITH OXYGEN THERAPY @ 3.5L NC. CHAIR ROLLED BACK INTO ROOM. CHAIR LOCKED. CALL LIGHT IN REACH. GALVEZ DRAINING BY GRAVITY. CONTINUE PLAN OF CARE AND SAFETY PRECAUTIONS.
[2016-06-05 12:54] VITALS: BP 142/72
[2016-06-05 16:23] VITALS: BP 144/66
[2016-06-05 19:45] VITALS: BP 143/71
--- NOTE | 2016-06-05 19:48 | NUR ---
SITTING ON BSC. ASSISTED INTO CHAIR PER REQUEST. EMTIED BSC OF LARGE DARK BLACK STOOL. DENIES PAIN OR ANY OTHER NEEDS. GALVEZ INTACT PATENT. PLACED BEDSIDE TABLE AND CALL LIGHT IN REACH.
--- NOTE | 2016-06-05 23:45 | NUR ---
WITH WATER ENGINEER ASSISTING TRANSFERED TO BED FROM CHAIR. RESP TECH HOOKED HIM UP TO BIPAP [facility].
[2016-06-06 00:29] VITALS: BP 140/77
--- NOTE | 2016-06-06 05:23 | NUR ---
RESTING WITH EYES CLOSED. BIPAP MASK ON. REPLACED HIS LEGS ON THE BED. EMPTIED GALVEZ.
[2016-06-06 06:59] LABS: ANION GAP 8.8 mmol/L (8-16); CALCIUM 7.9 mg/dL (8.5-10.1); CARBON DIOXIDE 31.2 mmol/L (21.0-32.0); CREATININE - SERUM 1.2 mg/dL (0.6-1.3)
[2016-06-06 09:12] VITALS: BP 114/74
--- NOTE | 2016-06-06 10:22 | NUR ---
WOUND CARE CONSULT: PT HAS TWO STAGE 2 PRESSURE INJURIES ON BILATERAL BUTTOCKS (AT COCCYX REGION) BOTH MEASURE 2CM X 2CM AND HAVE RED/PINK WOUND BEDS. EDGES ARE PEELING. SMALL BLOODY DRAINAGE IS NOTED. NO ODOR OR S/S INFECTION NOTED. SCROTUM IS EXCORIATED AND REQUIRES FREQUENT APPLICATION OF SKIN PROTECTION/BARRIER CREAM (CALMOSEPTINE CREAM). RECOMMEND KEEPING STAGE 2 PRESSURE INJURIES CLEAN AND PROTECTED WITH MEPILEX SACRAL DRESSING. ALSO NEED TO REMIND PT TO REPOSITION HIMSELF HOURLY WHILE SITTING UP IN CHAIR AND EVERY 2 HOURS WHILE IN BED. WOUND CARE WILL CONTINUE TO MONITOR.
[2016-06-06 12:11] VITALS: BP 115/57
--- NOTE | 2016-06-06 14:10 | NUR ---
Patient Name: HÉCTOR GRAY Encounter No: [id number] : 1945 Primary Insurance: MEDICARE A & B Anticipated DC Date: 06-06-2016 Planned Disposition: Inpatient Rehab Facility External Planned Provider: [facility] INPATIENT DCP follow-up note: CM SPOKE TO PT IN ROOM, PT REPORTS HE AND HIS SPOUSE ARE IN AGREEMENT WITH DISCHARGE TO INPATIENT REHAB AT [place] TODAY. IMPORTANT MESSAGE FROM MEDICARE PROVIDED AND EXPLAINED. CM SPOKE TO COURTNEY OF INPATIENT REHAB. CM WAITING ON ADMISSION DETERMINATION FROM [facility] INPATIENT REHAB. CM TO CONTINUE TO FOLLOW AND ASSIST NEEDED. Gilles Pascual, CASE MANAGEMENT
[2016-06-06 15:18] VITALS: BP 118/58
--- NOTE | 2016-06-06 16:47 | NUR ---
DISCUSSED WITH PATIENT THAT HE WILL REMAIN ON MED 2 FOR TONIGHT NO REHAB THERAPY WOULD TAKE PLACE TONIGHT. HE WILL BE ABLE TO TRANSFER TO REHAB IN THE MORNING. PT WAS AGREEABLE.
--- NOTE | 2016-06-06 18:15 | NUR ---
ALERT AND ORIENTED X4. SITTING UP IN CHAIR. SOB STABLE. DENIES PAIN. READY TO GO TO REHAB. AT BEDSIDE. INFORM ACCEPTANCE TO REHAB ROOM 1113A. PLAN TO DISCARGE TOMORROW PER ADMISSIONS. DENIES ANY NEEDS. GALVEZ DRAINING BY GRAVITY. DENIES ANY NEEDS. CONTINUE PLAN OF CARE AND SAFETY PRECAUTIONS.
--- NOTE | 2016-06-06 19:49 | NUR ---
SITTING IN BEDSIDE CHAIR READING. DENIES PAIN OR ANY NEEDS. IN CONTACT ISOLATION FOR MRSA IN SPUTUM. ALERT/ORIENTED X 4. HE ACKNOWLEDGES THE 1500 FLUID RESTRICTION. 02 ON AT 3.5L/NC. CVL IN R SC TL INTACT SL. GALVEZ INTACT DRAING PINKISH URINE TO GRAVITY. HAS 1ST STEP OVERLAY MATTRESS ON THE BED. SCD'S ARE ON. CALL LIGHT AND BEDSIDE TABLE WITH PERSONAL ITEMS IN REACH.
[2016-06-06 20:18] VITALS: BP 117/69
--- NOTE | 2016-06-06 22:00 | NUR ---
RENTAL REPRESENTATIVE'S ASSISTED PATIENT TO BED FROM BEDSIDE CHAIR. REQUESTED RESP TECH TO SET UP BIPAP [facility].
[2016-06-06 23:57] VITALS: BP 143/60
--- NOTE | 2016-06-07 00:30 | NUR ---
RESTING WITH EYES CLOSED WITH BIPAP ON. NO S/S OF DISTRESS OR DISCOMFORT.
[2016-06-07 03:52] VITALS: BP 112/71
--- NOTE | 2016-06-07 04:17 | NUR ---
NO CHANGES NOTED. RESTING QUIETLY WITH EYES CLOSED.
[2016-06-07 05:31] LABS: BASOPHILS 0.1 % (0-2); EOSINOPHILS 0 % (0-7); HEMATOCRIT 31.2 % (42.0-54.0); HEMOGLOBIN 10.2 g/dL (13.5-17.5); LYMPHOCYTES 5.7 % (15-50); MCH 28.7 pg (26.0-34.0); MCHC 32.7 g/dL (31.0-37.0); MCV 87.9 fL (80.0-100.0); MEAN PLATELET VOLUME 9.6 fL (7.4-10.4); MONOCYTES 4.9 % (2-11); NEUTROPHILS 84.3 % (40-80); PLATELET COUNT 110 10x3/uL (130-400); RBC 3.55 10x6/uL (4.20-6.10)
[2016-06-07 05:41] LABS: WBC 7.2 10x3/uL (4.8-10.8)
[2016-06-07 05:49] LABS: CALCIUM 8.1 mg/dL (8.5-10.1); CARBON DIOXIDE 33.3 mmol/L (21.0-32.0); CREATININE - SERUM 1.1 mg/dL (0.6-1.3); POTASSIUM - SERUM 4.3 mmol/L (3.5-5.1)
[2016-06-07 07:30] VITALS: BP 150/94
--- NOTE | 2016-06-07 08:01 | DS ---
PATIENT:HÉCTOR GRAY :[birth year] MEDICAL RECORD: [id number] DISCHARGE SUMMARY ADMISSION DATE: 05/27/16 DISCHARGE DATE: DISCHARGE DIAGNOSES: Exacerbation of chronic obstructive pulmonary disease, acute renal insufficiency, gastric arteriovenous malformations with bleeding, eucxz-nk-zoeyigp respiratory failure, right lower lobe pneumonia, metabolic encephalopathy, moderate pulmonary hypertension, adult obstructive sleep apnea, coronary artery disease, gastroesophageal reflux disease, anemia of acute blood loss, thrombocytopenia, restless legs syndrome. HOSPITAL COURSE: A 71-year-old male admitted from rehab because of acute respiratory decompensation. He has an acute renal failure as well. He was admitted to the acute floor to the ICU. He was attended by nephrology, cardiology and pulmonology consults. The patient gradually improved moved to the floor. He did not require dialysis. He also underwent EGD because of recurrent anemia and heme-positive stools. Dr. De Leon performed that showed evidence of AV malformations without active bleeding sites. I did perform some cauterization on tiny AVMs and hemoclipping and a couple small ulcerations. The patient gradually improved and moved to the floor. He has been stable from a cardiovascular standpoint. He is on BiPAP at night and sats have been in the normal range on O2. LABORATORY DATA: White count of 10,000, normal diff, H&H is 10.9 and 33.8 and has been stable. Platelet count has improved to 112,000. His chemistry showed BUN and creatinine improved to 43 and 1.2, potassium 4.0. Urinalysis unremarkable. I had a long talk with he and his . He is concerned but knows that he needs to go back to rehab. I have talked to them that we will have to rant on him on consult and help with his medical management. He is comfortable that he will be transferred today. DISCHARGE MEDICATIONS: DuoNeb updrafts HHN q.4 hours, Plavix 75 mg p.o. daily, Neurontin 300 mg p.o. t.i.d., Seroquel 25 mg p.o. at h.s., Requip 10 mg p.o. at h.s., Celexa 20 mg p.o. q.a.m., nystatin oral suspension 5 cc p.o. p.c. and h.s., Brovana updraft 15 mcg q.12 hours, Librax 5/2.5 one t.i.d. a.c. meals, Revatio 20 mg p.o. t.i.d., Diovan 320 one p.o. daily, Bumex 1 mg p.o. b.i.d., Pulmicort 0.5 updrafts q.12 hours, Protonix 40 mg p.o. daily, tessalon perles 200 mg p.o. t.i.d., Flonase nasal spray 2 nasal sprays each nostril daily, Humalog intermediate sliding scale, prednisone 20 mg p.o. daily p.c. ACTIVITY: Progressive physical therapy as tolerated. DIET: Low cholesterol. O2 at [address] Chaudhari's order. TRANSINT:[id number] Voice Confirmation ID: [id number] DOCUMENT ID: [id number] DISCHARGE SUMMARY REPORT [id number] HÉCTOR GRAY TIMOTHY MD at 0801 CC: [id number] DICTATION DATE: 06/06/16 171 NEUROLOGICAL PHYSIOTHERAPIST: 06/07/16 [address] [facility] [address] [place] [address]
--- NOTE | 2016-06-07 12:46 | NUR ---
Nutrition follow-up: Diet: ADA consistent CHO PO intake 75-100% of meals Labs reviewed +BM Wt: 200# RDN following.
--- NOTE | 2016-06-07 13:30 | NUR ---
PATIENT DISCHARGED TO INPATINT REHAB VIA WC /C O2. BIPAP DELIVERED WELL. HE WAS ABLE TO TRANSFER WITH 1 PERSON'S ASSISTANCE, USING A GAIT BELT. HE WAS WITHOUT DISTRESS, DENIED NEEDS. ALL PERSONAL BELOGINGS PACKED AND TAKEN WITH HIM. CALL LIGHT WITHIN HIS REACH WHEN I LEFT HIM. NOTIFIED THE RECEIVING NURSE THAT HE NEEDED A FIRST STEP OVERLAY.
== END 2016-06-07 17:02 | DRG 871 ==
LOC: D.ICU 10:38 → D.M2 10:38
PROVIDERS: Family Medicine; Internal Medicine Gastroenterology; Internal Medicine Nephrology; Internal Medicine Pulmonary Disease; ADMIT Family Medicine
PROC: 0T9B70Z Drainage of Bladder with Drainage Device, Via Natural or Artificial Opening (ICD-10-PCS; principal; 2016-05-27)
PROC: 0W3P8ZZ Control Bleeding in Gastrointestinal Tract, Via Natural or Artificial Opening Endoscopic (ICD-10-PCS; 2016-05-27)
PROC: 5A09557 Assistance with Respiratory Ventilation, Greater than 96 Consecutive Hours, Continuous Positive Airway Pressure (ICD-10-PCS; 2016-05-27)
PROC: 0D568ZZ Destruction of Stomach, Via Natural or Artificial Opening Endoscopic (ICD-10-PCS; 2016-05-31)
PROC: 05HM33Z Insertion of Infusion Device into Right Internal Jugular Vein, Percutaneous Approach (ICD-10-PCS; 2016-06-03)
PROC: B543ZZA Ultrasonography of Right Jugular Veins, Guidance (ICD-10-PCS; 2016-06-03)
DX: A41.9 Sepsis, unspecified organism (principal); J96.21 Acute and chronic respiratory failure with hypoxia; N17.0 Acute kidney failure with tubular necrosis; G93.41 Metabolic encephalopathy; K26.4 Chronic or unspecified duodenal ulcer with hemorrhage; J18.9 Pneumonia, unspecified organism; I13.0 Hypertensive heart and chronic kidney disease with heart failure and stage 1 through stage 4 chronic kidney disease, or unspecified chronic kidney disease; I50.22 Chronic systolic (congestive) heart failure; J44.1 Chronic obstructive pulmonary disease with (acute) exacerbation; D62 Acute posthemorrhagic anemia; J44.0 Chronic obstructive pulmonary disease with (acute) lower respiratory infection; E11.22 Type 2 diabetes mellitus with diabetic chronic kidney disease; N18.3 Chronic kidney disease, stage 3 (moderate); E11.40 Type 2 diabetes mellitus with diabetic neuropathy, unspecified; I08.3 Combined rheumatic disorders of mitral, aortic and tricuspid valves; K21.9 Gastro-esophageal reflux disease without esophagitis; I25.10 Atherosclerotic heart disease of native coronary artery without angina pectoris; I95.9 Hypotension, unspecified; E83.51 Hypocalcemia; E86.0 Dehydration; D69.6 Thrombocytopenia, unspecified; Z78.1 Physical restraint status; K31.819 Angiodysplasia of stomach and duodenum without bleeding; K25.9 Gastric ulcer, unspecified as acute or chronic, without hemorrhage or perforation; K26.9 Duodenal ulcer, unspecified as acute or chronic, without hemorrhage or perforation; K29.70 Gastritis, unspecified, without bleeding; I73.9 Peripheral vascular disease, unspecified; I27.2 Other secondary pulmonary hypertension; G47.33 Obstructive sleep apnea (adult) (pediatric); Z95.0 Presence of cardiac pacemaker; Z95.1 Presence of aortocoronary bypass graft; Z87.891 Personal history of nicotine dependence

== ENCOUNTER 2016-06-07 09:30 | Inpatient (IN) | payer MEDICARE, OTHER ==
[~2016-06-07] VITALS: Ht 175.3 cm; Wt 90.7 kg
--- NOTE | 2016-06-07 15:30 | NUR ---
PT RECIEVED FROM ACUTE FLOOR TO ROOM 1113A. ADMITTED TO DR MORGAN SERVICES. PT IS ALERT AND ORIENTED X 3. ORIENTED TO ROOM AND UNIT RULES WITH VERBAL UNDERSTANDING VOICED.
[2016-06-07 16:28] VITALS: BP 147/56; BMI 29.6
--- NOTE | 2016-06-07 16:51 | NUR ---
PATIENT ADMITTED TO REHAB FROM ACUTE FLOOR. HIS PCP IS DR. CORCORAN, DME IS FURNISHED BY [facility], PATIENT HAS BI-PAP, O2 , WALKER AND NEBULIZER. HE IS OF [place]. DISCHARGE PLANS ARE THAT HE WILL RETURN HOME WITH HIS . WILL CONTTINUE TO FOLLOW WITH PATIENT
[2016-06-07 19:00] VITALS: BP 113/56
--- NOTE | 2016-06-07 19:45 | NUR ---
PT ASSISTED TO BEDSIDE COMMODE. PT HAD LARGE, SOFT, FORMED BM. PT BACK IN BED AND DENIES FURTHER NEEDS. BED LOW. CL IN REACH.
--- NOTE | 2016-06-07 21:40 | NUR ---
PT HS MEDS ADMINISTERED. PT CARMEN APPLIED TO BUTTOCK AND SCROTUM AND NEW MEPILEX APPLIED. PT DENEIS NEEDS AT THIS TIME. BED LOW. CL IN REACH.
--- NOTE | 2016-06-08 00:11 | NUR ---
PT RESTING, EYES CLOSED. BIPAP IN PLACE. WCTM. BED LOW. CL IN REACH.
--- NOTE | 2016-06-08 03:38 | NUR ---
PT RESTING, EYES CLOSED. RESP EVEN AND UNLABORED. WCTM. BED LOW. CL IN REACH.
[2016-06-08 05:54] LABS: BASOPHILS 0.2 % (0-2); EOSINOPHILS 0.1 % (0-7); HEMATOCRIT 32.4 % (42.0-54.0); HEMOGLOBIN 10.5 g/dL (13.5-17.5); IMMATURE GRANULOCYTES 6.4 % (0-5); LYMPHOCYTES 5.3 % (15-50); MCH 28.8 pg (26.0-34.0); MCHC 32.4 g/dL (31.0-37.0); MCV 88.8 fL (80.0-100.0); MEAN PLATELET VOLUME 9.4 fL (7.4-10.4); MONOCYTES 3.4 % (2-11); NEUTROPHILS 84.6 % (40-80); PLATELET COUNT 110 10x3/uL (130-400); RBC 3.65 10x6/uL (4.20-6.10); RDW 18.8 % (11.5-14.5); WBC 8.3 10x3/uL (4.8-10.8)
--- NOTE | 2016-06-08 06:07 | NUR ---
AM MEDS ADMINISTERED. PT RESTING, BIPAP IN PLACE. PT DENIES NEEDS. BED LOW. CL IN REACH.
[2016-06-08 06:21] LABS: ANION GAP 5.4 mmol/L (8-16); CALCIUM 8.5 mg/dL (8.5-10.1); CARBON DIOXIDE 34.9 mmol/L (21.0-32.0); CREATININE - SERUM 1.2 mg/dL (0.6-1.3); POTASSIUM - SERUM 4.3 mmol/L (3.5-5.1)
--- NOTE | 2016-06-08 07:55 | NUR ---
SITTING UP EATING BREAKFAST CALL LIGHT IN REACH
--- NOTE | 2016-06-08 09:05 | NUR ---
PT IS RESTING IN BED AFTER BREAKFAST. ALERT AND ORIENTED X 3. DENIES ACUTE PAIN OR DISCOMFORT. NO SOB NOTED. GALVEZ CATH IS PATENT AND DRAINING TO A GRAVITY BAG. O2 IS ON @ 3.5LPM PER NC. RIGHT CHEST TLSC CATH NOTED. SR'S ARE UP X 3 IN BED. CALL LGITH AND BEDSIDE TABLE ARE WITHIN EASY REACH.
--- NOTE | 2016-06-08 10:00 | NUR ---
PT REFUSED HIS SHOWER WITH OT.
[2016-06-08 10:12] VITALS: BP 117/61
[2016-06-08 10:41] VITALS: Ht 175.3 cm; Wt 90.7 kg
--- NOTE | 2016-06-08 11:34 | NUR ---
PT IS PARTICIPATING IN THERAPY AT THIS TIME.
--- NOTE | 2016-06-08 13:45 | NUR ---
PT DOZING IN HIS WC IN HIS ROOM. STATES HE IS VERY SLEEPY AFTER THERAPY THIS AM. PT DENIES WANTING TO LAY DOWN IN BED. STATES: "IM USED TO SITTING UP ALL DAY LONG, AND IM TIRED OF LAYING DOWN ALL THE TIME.
--- NOTE | 2016-06-08 17:00 | NUR ---
PTS SPOUSE CAME IN TO HOSPITAL. PT HAD DRIFTED OFF TO SLEEP IN BED. SHE WAS UPSET BECAUSE HE WAS NOT WEARING HIS BIPAP, AND WAS CONCERNED THAT HE WAS ACIDOTIC, AND STATED HE WAS NOT SUPPOSED TO BE TAKING SEROQUEL. DR CONDON NOTIFIED, AND NEW ORDERS NOTED.
--- NOTE | 2016-06-08 18:05 | NUR ---
PT RESTING IN BED FEEDING SELF SUPPER. HE IS VERY DROWSY, AND MUST BE AWOKEN OFTEN TO EAT. NO SWALLOW PROBLEMS NOTED.
--- NOTE | 2016-06-08 18:56 | NUR ---
PT RESTING IN BED WITH EYES CLOSED. BIPAP ON. SCD'S ON. SPOUSE IS AT BEDSIDE.
--- NOTE | 2016-06-08 19:30 | NUR ---
PT RESTING QUIETLY WITH EYES CLOSED, BIPAP ON, BY SIDE.
[2016-06-08 20:06] VITALS: BP 123/55
--- NOTE | 2016-06-09 00:07 | NUR ---
PT WAS HUNGRY AND SPOUSE BROUGHT HIM FOOD FROM OUTSIDE. PT IS EATING AND VISITIN WITH SPOUSE.
--- NOTE | 2016-06-09 07:30 | NUR ---
SITTING UP IN BED RESTING QUIETLY. HAS CPAP MACHINE ON. NO S/S DISTRESS. CALL LIGHT IN REACH
--- NOTE | 2016-06-09 07:36 | NUR ---
testicles are sore with transfer as pt states they stick to the bed. respiratoins, regular and unlabored. no s/s of acute distress. pt alert, aware and oriented.
[2016-06-09 08:47] VITALS: BP 146/53
--- NOTE | 2016-06-09 19:30 | NUR ---
PT TRANSFERRED BACK TO BED FROM CHAIR USING WALKER AND TWO. MOD ASSIST FROM SIT TO STAND POSITION AND TO PIVOT TO SIT ON SIDE OF BED, MAX ASSIST OF TWO TO LIE DOWN IN BED. PT DOES USE TRAPEZE. GALVEZ EMPTIED. PT DENIES PAIN.
[2016-06-09 20:45] VITALS: BP 121/53
--- NOTE | 2016-06-10 00:39 | NUR ---
PT RESTING QUIETLY WITH BIPAP ON, NO ALARMS SOUNDING. RESPIRATIONS REGULAR AND UNLABORED. NO S/S OF ACUTE [id number].
--- NOTE | 2016-06-10 04:22 | NUR ---
PT IN BED WITH HOB UP FOR COMFORT, EYES CLOSED, CHEST RISING AND FALLING, WEARING BIPAP, BED IN LOWEST POSITION AND CALL LIGHT WITHIN REACH.
[2016-06-10 07:00] VITALS: BP 113/50
--- NOTE | 2016-06-10 08:00 | NUR ---
SHIFT ASSMT COMPLETED.DENIES NEEDS.O2 ON AT 3L/NC.
--- NOTE | 2016-06-10 12:00 | NUR ---
SITTING UP IN CHAIR EATING LUNCH.CL IN REACH.
--- NOTE | 2016-06-10 16:00 | NUR ---
REMAINS UP IN CHAIR,SHAVED AND HANDS WASHED.DENIES NEEDS.
[2016-06-10 19:00] VITALS: BP 111/47
--- NOTE | 2016-06-10 19:00 | NUR ---
PT IN W/C WITH IN ROOM. O2 @ 3L VIA N/C. ALERT AND ORIENTED. NO COMPLAINTS. CALL LIGHT WITHIN REACH.
--- NOTE | 2016-06-10 23:00 | NUR ---
PT LYING IN BED. WEARING BIPAP. EYES CLOSED. CHEST RISING AND FALLING. BED IN LOWEST POSITION AND CALL LIGHT WITHIN REACH.
--- NOTE | 2016-06-11 03:06 | NUR ---
PT RESTING, EYES CLOSED. BED LOW. CL IN REACH.
--- NOTE | 2016-06-11 05:06 | NUR ---
PT LYING IN BED, WEARING BIPAP, EYES CLOSED, CHEST RISING AND FALLING, BED IN LOWEST POSITION AND CALL LIGHT WITHIN REACH.
[2016-06-11 08:00] VITALS: BP 116/50
--- NOTE | 2016-06-11 08:00 | NUR ---
SHIFT ASSMT COMPLETED.BIPAP REMOVED.O2 ON AT 4L/NC.
--- NOTE | 2016-06-11 12:00 | NUR ---
SITTING UP IN WC.MARYJO SHOWER.SOB WITH ACTIVITY.REMAINS UP IN WC AFTER SHOWER.
--- NOTE | 2016-06-11 18:00 | NUR ---
REMAINS UP IN WC.READING NEWSPAPER.
--- NOTE | 2016-06-11 19:35 | NUR ---
PT. SITTING UP IN CHAIR AND IS WATCHING TV. O2 VIA N/C AT 3L/MIN. NO VOICED NEEDS. ASSESSMENT COMPLETED. PT. DOES HAVE SOME SHORT TERM MEMORY DURING CONFERSATION HE SAYS HE'S ONLY BEEN SITTING UP A FEW MINUTES AND IN REPORT FROM DAY SHIFT NURSE PT. HAS BEEN SITTING UP SINCE HIS BATH AROUND NOON TODAY. CALL LIGHT WITHIN REACH.
[2016-06-11 20:00] VITALS: BP 110/75
--- NOTE | 2016-06-11 23:08 | NUR ---
PT. IN BED WITH HOB UP FOR COMFORT WITH BI-PAP TO FACE. GALVEZ TO BSD WITHOUT PROBLEM, SCD'S IN PLACE AND PT. IS ON A FIRST STEP MATTRESS. EYES ARE CLOSED AND RESP. EVEN. CALL LIGHT WITHIN REACH.
--- NOTE | 2016-06-12 03:10 | NUR ---
PT. IN BED WITH HOB UP FOR COMFORT AND IS WEARING HIS B-PAP EQUIPMENT WITHOUT ALARMS. EYES CLOSED AND RESP. EVEN. GALVEZ TO BSD, SCD'S ON BLE'S AND CALL LIGHT IS WITHIN REACH.
[2016-06-12 07:27] LABS: BASOPHILS 0.1 % (0-2); EOSINOPHILS 0 % (0-7); HEMATOCRIT 32.1 % (42.0-54.0); HEMOGLOBIN 10.3 g/dL (13.5-17.5); IMMATURE GRANULOCYTES 4.9 % (0-5); LYMPHOCYTES 3.6 % (15-50); MCH 28.6 pg (26.0-34.0); MCHC 32.1 g/dL (31.0-37.0); MCV 89.2 fL (80.0-100.0); MEAN PLATELET VOLUME 9.7 fL (7.4-10.4); MONOCYTES 4.7 % (2-11); NEUTROPHILS 86.7 % (40-80); PLATELET COUNT 120 10x3/uL (130-400); RDW 19.1 % (11.5-14.5); WBC 8.2 10x3/uL (4.8-10.8)
--- NOTE | 2016-06-12 07:30 | NUR ---
PT IS RESTING IN BED WITH EYES OPEN. ALERT AND ORIENTED X 4. DENIES ANY PAIN OR DISCOMFORT AT THIS TIME. NO SOB NOTED. 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 O2 IS ON @ 3LPM PER IN. GALVEZ CATH IS PATENT AND DRAINING TO A GRAVITY BAG. RIGHT CHEST TLSC ACCESS NOTED. VSS. SR'S ARE UP X 2 IN BED. CALL LIGHT AND BEDSIDE TABLE ARE WITHIN EASY REACH.
[2016-06-12 07:31] LABS: ANION GAP 8.4 mmol/L (8-16); CALCIUM 8.3 mg/dL (8.5-10.1); CARBON DIOXIDE 35.4 mmol/L (21.0-32.0); CREATININE - SERUM 1.6 mg/dL (0.6-1.3); POTASSIUM - SERUM 3.8 mmol/L (3.5-5.1)
[2016-06-12 08:15] VITALS: BP 113/59
--- NOTE | 2016-06-12 09:56 | NUR ---
PT IS RESTING IN BED PLAYING ON HIS COMPUTER. NO ACUTE DISTRESS NOTED.
--- NOTE | 2016-06-12 10:15 | NUR ---
PT NOTED BY PT TO BE LAYING ON THE FLOOR, AND SHE YELLED OUT FOR HELP. UPON ENTERING THE ROOM, PT NOTED TO BE LAYING ON THE FLOOR BESIDE HIS BED. HE STATED HE WAS REACHING FOR HIS COMPUTER, AND SLID OFF THE AIR MATTRESS. PT DENIES HAVING FALLEN. HE STATES: " I JUST SLID TO THE FLOOR." ONCE I GOT STARTED, I JUST COULDNT STOP IT. PT DENIES ANY INJURIES, EXCEPT TO HIS PRIDE. PT ASSISTED UP WITH 2 PERSON ASSIST TO WC. PT STATES HE IS FINE, AND DOES NOT NEED ALL THIS ATTENTION. HE WILL BE GOING TO THERAPY IN 10 MINUTES. SPOUSE NOTIFIED BY STEPH TRAYLOR RN.
--- NOTE | 2016-06-12 12:00 | NUR ---
PT IS FEEDING SELF LUNCH IN HIS ROOM. NO NEEDS VOICED. NO DISTRESS NOTED.
--- NOTE | 2016-06-12 15:00 | NUR ---
PT IS SITTING IN A WC IN HIS ROOM TRYING TO USE HIS LAPTOP. IT WILL NOT TURN ON. I WAS UNABLE TO FINISH OUT THE PROBLEM.
--- NOTE | 2016-06-12 18:13 | NUR ---
PT RESTING IN A WC IN HER ROOM. NO NEEDS VOICED.
--- NOTE | 2016-06-12 18:19 | NUR ---
EATING SUPPER CALL LIGHT IN REACH
[2016-06-12 19:18] VITALS: BP 144/76
--- NOTE | 2016-06-12 19:25 | NUR ---
PT RECEIVED UP IN WHEELCHAIR WITH IN ROOM. ASSISTED TO RECLINING CHAIR WITH PILLOWS TO RELIEVE DISCOMFORT TO GROIN. RELIEF NOTED AFTER TRANSFER. NO OTHER NEEDS MADE KNOWN AT THIS TIME. CALL LIGHT IN REACH. WILL CONTINUE TO OBSERVE.
--- NOTE | 2016-06-12 22:25 | NUR ---
PT TRANSFERRED FROM CHAIR TO BEDSIDE COMMODE. CHECKED ON FREQUENTLY WITH PT ON CELL PHONE SAYING GIVE HIM 5 MINUTES AND RECHECKED AND CONTINUED TO TALK ON PHONE. PT TRANSFERRED TO BED VIA WALKER AFTER PERICARE PROVIDED. PT RECEIVED A PHONE CALL WHEN TRANSFERED TO BED WHEN ATTEMPTING TO ADMINISTER MEDICATIONS AND INSULIN. IN BED WITH SCDS AND SHEET ONLY PER REQUEST. NO NEEDS MADE KNOWN. CALL LIGHT IN REACH. WILL CONTINUE TO OBSERVE.
--- NOTE | 2016-06-13 06:45 | NUR ---
PT IN BED WITH EYES CLOSED AND CHEST RISING. BIPAP IN USE. FSBS CHECKED WITH NO INSULIN GIVEN PER SLIDING SCALE. AM MEDICATIONS GIVEN PER MAR. NO OTHER NEEDS MADE KNOWN. CALL LIGHT IN REACH
--- NOTE | 2016-06-13 07:56 | NUR ---
PT NOTED RESTING IN BED WITH EYES CLOSED WITH BIPAP ON. AWOKE EASILY TO VERBAL STIMULI. BIPAP REMOVED, AND PT ASSISTED TO SIT UP ON THE SIDE OF HIS BED WITH THE AIR MATTRESS OFF TO FEED HIMSELF BREAKFAST. O2 IS ON @ 3LPM PER NC. NO SOB NOTED.GALVEZ CATH IS PATENT AND DRAINING TO A GRAVITY BAG.SR'S ARE UP X 2 IN BED. CALL LIGHT AND BEDSIDE TABLE ARE WITHIN EASY REACH.
--- NOTE | 2016-06-13 09:41 | RHP ---
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 HISTORY OF PRESENT ILLNESS: The patient is admitted to inpatient rehab for a right frontal infarction. He is a 71-year-old gentleman. He was on this rehab unit and on the morning of May 27, became hypotensive and a bit confused. He did not complete his acute rehab stay. Rapid response was called. He was transferred out to the ICU. His blood pressure is significantly improved now. He has now been transferred out of the medical floor. He continues on supplemental O2 and BiPAP q.h.s. He was moderately independent to independent with ADLs and mobility prior to this hospitalization. He is currently standby assist to max assist for ADLs and is moderate assist to max assist for mobility. He wants to return home with his and hopefully get back to his prior level of functioning or improve if possible. COMORBIDITIES: In this patient include type 2 diabetes with neuropathy. He has got a history of primary hypertension, systolic heart failure, pneumonia, COPD, [id number] respiratory failure with noted hypoxia. He has got a history of pneumonia, hypertension and metabolic encephalopathy. He has got a history of moderate pulmonary artery hypertension. He has got obstructive sleep apnea, coronary artery disease. He has got a history of anemia, thrombocytopenia, electrolyte abnormalities and a GI bleed in the past. PAST MEDICAL HISTORY: Significant for COPD, chronic hypoxic respiratory failure, pneumonia, congestive heart failure, anemia, gastroesophageal reflux disease, obstructive sleep apnea, hypertension, chronic kidney disease, diabetes with neuropathy, coronary artery disease, prostate cancer, skin cancer, apnea and O2 dependence. PAST SURGICAL HISTORY: Includes coronary artery bypass grafting he had back in 1998. He has got a history of pacemaker placement in 2003, lumbar surgery, prostate radiation, cataract surgery and angioplasty. ALLERGIES: KEFLEX AND ALSO NIFEDIPINE. CURRENT MEDICATIONS: He is on a prednisone taper at this time. He is on Diovan 320 mg daily. He is on Flonase nasal spray 2 sprays daily, Plavix 75 mg daily, citalopram 20 mg daily. He is on Nystatin cream to apply topically. He is on Revatio 20 mg t.i.d., Requip 10 mg q.h.s., Seroquel 25 mg q.h.s., Protonix 40 mg b.i.d. He is on albuterol updrafts p.r.n. shortness of breath. He is on Neurontin 300 mg t.i.d., Librium as needed for abdominal pain, Bumex 1 mg b.i.d., Pulmicort 0.5 mg b.i.d., Tessalon Perles 200 mg t.i.d. p.r.n. cough and Brovana 15 mcg b.i.d. HABITS: No current alcohol or tobacco use. FAMILY HISTORY: Noncontributory. HISTORY AND PHYSICAL [id number] HÉCTOR GRAY SOCIAL HISTORY: The patient hopes to return back home with his and get back to his prior level of functioning. REVIEW OF SYSTEMS: GENERAL: Does complain of some weakness. HEENT: Denies cold, cough or congestion at this time. CARDIOVASCULAR: Denies any chest pain. LUNGS: Does complain of shortness of breath especially with activity. LABORATORY DATA: His white count is 8.3, H&H of 10 and 32 and platelet count was noted to be 110. His sodium is 142, potassium 4.3, BUN and creatinine of 43 and 1.2. His blood sugar was noted to be 112. ASSESSMENT: This is a 71-year-old gentleman, who is admitted to the rehab with a working diagnosis of right frontal infarction with left body involvement. The patient has potential to make improvement. We instituted the following multidisciplinary therapies including, but not limited to physical, occupational, respiratory, speech, nutritional services, prosthetics and orthotics. Given his complex condition and risk for more complications, rehabilitation services cannot be provided at a lower level of care such as a half-way facility. PLAN: 1. Admit to [facility] rehab for intensive inpatient therapy to include the following disciplines: A. Physical therapy to improve gait, all transfer skills and bed mobility to a modified independent level. B. Occupational therapy to improve activities of daily living to a modified independent level. C. Case management to assist with discharge planning and placement options. D. Nutrition to assist with nutritional needs. E. Rehabilitation nursing to assist in monitoring the patient's underlying medical conditions and to assist with any type of bowel or bladder management. 2. The patient's current medication and medical care will be continued. 3. The patient will be placed on standard fall precautions. 4. The patient's estimated length of stay is approximately 7-10 days. 5. Discuss this patient during care team staff meeting this week. TRANSINT:[id number] Voice Confirmation ID: [id number] DOCUMENT ID: [id number] HOWARD CONDON MD at [id number] CC: [id number] DICTATION DATE: 06/08/16 08 SCIENCE INTERN: 06/08/16 0912 ADM IN [facility] [address] [id number]
[2016-06-13 09:45] VITALS: BP 101/57
--- NOTE | 2016-06-13 09:50 | NUR ---
PT IS RESTING IN BED WITH EYES CLOSED. BIPAP ON. NO ACUTE DISTRESS NOTED.
--- NOTE | 2016-06-13 12:55 | NUR ---
PT IS UP IN PREPARING FOR THERAPY. NO COMPLAINT VOICED.
--- NOTE | 2016-06-13 13:54 | NUR ---
Nutrition Follow Up: Pt was asleep at the time of RD visit. Interview deferred. Pt is eating 100% meal avg on a diabetic diet with 1500 ml fluid restriction. +BM 06/13/16. Labs reviewed - Glucose elevated. Meds noted including Prednisone, Bumex, Humulin. Pt with excellent po intake at this time. Rec continue current diet. RD following.
--- NOTE | 2016-06-13 17:38 | NUR ---
PT IS SITTING IN HIS WC IN HIS ROOM FEEDING SELF SUPPER. NO DISTRESS NOTED.
--- NOTE | 2016-06-13 18:28 | NUR ---
RESTING QUIETLY IN BED CALL LIGHT IN REACH
--- NOTE | 2016-06-13 20:18 | NUR ---
PT SITTING UP IN W/C TALKING ON PHONE, PROPELLS W/C AROUND ROOM. PT HAS NC ON. RESPIRATIONS REGULAR AND UNLABORED, NO S/S OF ACUTE DISTRESS.
[2016-06-13 20:33] VITALS: BP 144/76
--- NOTE | 2016-06-14 02:05 | NUR ---
PT RESTING WITH EYES CLOSED, BIPAP MASK ON, RESPIRATIONS REGULAR AND UNLABORED, NO S/S OF ACUTE DISTRESS.
--- NOTE | 2016-06-14 08:00 | NUR ---
AWAKE AND SITTING UP ON SIDE OF BED.DENIES NEEDS.CL IN REACH.
[2016-06-14 08:27] VITALS: BP 112/58
[2016-06-14 11:30] LABS: BASOPHILS 0.2 % (0-2); EOSINOPHILS 0 % (0-7); HEMATOCRIT 30.7 % (42.0-54.0); HEMOGLOBIN 9.8 g/dL (13.5-17.5); IMMATURE GRANULOCYTES 2.4 % (0-5); LYMPHOCYTES 4.6 % (15-50); MCH 28.8 pg (26.0-34.0); MCHC 31.9 g/dL (31.0-37.0); MCV 90.3 fL (80.0-100.0); MEAN PLATELET VOLUME 9.2 fL (7.4-10.4); MONOCYTES 3.3 % (2-11); NEUTROPHILS 89.5 % (40-80); PLATELET COUNT 113 10x3/uL (130-400); RDW 19.2 % (11.5-14.5); WBC 6.6 10x3/uL (4.8-10.8)
[2016-06-14 11:45] LABS: ANION GAP 7.1 mmol/L (8-16); CALCIUM 8.5 mg/dL (8.5-10.1); CARBON DIOXIDE 37.1 mmol/L (21.0-32.0); CREATININE - SERUM 1.7 mg/dL (0.6-1.3); POTASSIUM - SERUM 4.2 mmol/L (3.5-5.1)
--- NOTE | 2016-06-14 12:00 | NUR ---
SITTING UP IN CHAIR.CL IN REACH.EATING LUNCH.
--- NOTE | 2016-06-14 14:31 | NUR ---
CARE TEAM MEETING: PATIENT PROGRESSING IN THERAPY. PATIENT WILL BE RA AT NEXT MEETING. TENATIVE DISCHARGE DATE IS 06/30/16. WILL CONTINUE TO FOLLOW WITH PATIENT UNTIL DISCHARGED.
--- NOTE | 2016-06-14 16:00 | NUR ---
SITTING UP IN WC.CL IN REACH.
--- NOTE | 2016-06-14 19:25 | NUR ---
PT RESTING IN BED, RESPIRATIONS REGULAR AND UNLABORED, ASSISTED PT WITH NEEDS STATED SUCH FINDING PHONE. , GALVEZ DRAINING CLEAR YELLOW URINE. PT DENIES PAIN.
[2016-06-14 22:17] VITALS: BP 107/43
--- NOTE | 2016-06-14 23:45 | NUR ---
PT REQUESTED SOMETHING TO EAT LIKE PUDDING. PT EATING PUDDING.
--- NOTE | 2016-06-15 00:15 | NUR ---
PT DOZING IN BED, REQUESTED RT TO PLACE BIPAP MASK. RESPIRATIONS REGULAR AND UNLABORED.
--- NOTE | 2016-06-15 02:59 | NUR ---
PT RESTING QUIETLY, NO S/S OF ACUTE DISTRESS, RESPIRATIONS REGULAR AND UNLABORED.
--- NOTE | 2016-06-15 07:30 | NUR ---
PT IS RESTING IN BED WITH EYES CLOSED. BIPAP ON. AWOKE EASILY TO VERBAL STIMULI. BIPAP REMOVED. PT IS ALERT AND ORIENTED X 4. DENIES ANY DISCOMFORT AT THIS TIME. NO SOB NOTED. LUNG SOUNDS ARE DIMINISHED. O2 IS ON @ 3LPM PER NC. GALVEZ CATH IS PATENT AND DRAINING TO A GRAVITY BAG. PT ASSISTED UP INTO A WC FOR BREAKFAST. SR'S ARE UP X 3 IN BED. CALL LIGHT AND BEDSIDE TABLE ARE WITHIN EASY REACH.
[2016-06-15 08:11] VITALS: BP 130/50
[2016-06-15] MEDS ORDERED: BUMETANIDE0.5 MG PO (09:30)
--- NOTE | 2016-06-15 10:22 | NUR ---
PT IS AMBULATING IN THE HALLWAYS WITH PT AT THIS TIME. NO ACUTE DISTRESS NOTED.
--- NOTE | 2016-06-15 14:25 | NUR ---
PT RESTING IN HIS ROOM BETWEEN THERAPY SESSIONS. NO NEEDS VOICED.
--- NOTE | 2016-06-15 18:00 | NUR ---
SITTING ON SIDE OF BED LOOKING AT PAPER.
--- NOTE | 2016-06-15 19:20 | NUR ---
PT. SITTING ON THE SIDE OF HIS BED AND TRYING TO LOCATE HIS CELL PHONE THAT HE DROPPED. MARY ANN FUNG, ASSISTED PT. TO W/C SO THAT HIS FIRST STEP AIR MATTRESS COULD BE SITUATED BETTER ON TOP OF THE BED MATRESS. PT. REQUESTED TO STAY UP IN THE W/C FOR NOW. O2 ON AT 3L/MIN AND PT. HAS NO VOICED NEEDS HE'S NOW TALKING ON HIS CELL PHONE. CALL LIGHT WITHIN REACH.
[2016-06-15 20:05] VITALS: BP 140/60
--- NOTE | 2016-06-15 23:54 | NUR ---
PT. IN BED WITH HOB UP FOR COMFORT WITH BI-PAP EQUIPMENT IN PLACE WITHOUT ALARMS. EYES CLOSED AND RESP. EVEN. FORGOT TO DOCUMENT IN ASSESSMENT ABOUT PT'S RT. CHEST TLSC. FLUSHED IT WHEN BED TIME MEDS WERE ADMIN. AND ALL LINES FLUSHED GOOD AND ALL 3 LINES HAD BLOOD RETURN IN THEM. PT. ON FIRST STEP MATTRESS AND GALVEZ TO BSD WITHOUT PROBLEMS. CALL LIGHT WITHIN REACH.
--- NOTE | 2016-06-16 03:25 | NUR ---
PT. IN BED ON FIRST STEP MATTRESS. PT. WEARING HIS BI-PAP EQUIPMENT WITHOUT ANY ALARMS WHILE SLEEPING. EYES CLOSED AND RESP. EVEN. GALVEZ TO BSD WITHOUT PROBLEMS. CALL LIGHT WITHIN REACH.
[2016-06-16 06:53] LABS: BASOPHILS 0 % (0-2); EOSINOPHILS 0.2 % (0-7); HEMATOCRIT 28.8 % (42.0-54.0); HEMOGLOBIN 9.2 g/dL (13.5-17.5); IMMATURE GRANULOCYTES 4.8 % (0-5); LYMPHOCYTES 5.5 % (15-50); MCH 28.7 pg (26.0-34.0); MCHC 31.9 g/dL (31.0-37.0); MCV 89.7 fL (80.0-100.0); MONOCYTES 4.6 % (2-11); NEUTROPHILS 84.9 % (40-80); PLATELET COUNT 97 10x3/uL (130-400); RBC 3.21 10x6/uL (4.20-6.10); WBC 5.9 10x3/uL (4.8-10.8)
[2016-06-16 07:08] LABS: CALCIUM 8.1 mg/dL (8.5-10.1); CREATININE - SERUM 1.8 mg/dL (0.6-1.3); POTASSIUM - SERUM 3.8 mmol/L (3.5-5.1)
[2016-06-16 07:13] LABS: ANION GAP 2.8 mmol/L (8-16)
--- NOTE | 2016-06-16 08:15 | NUR ---
PT RESTING IN BED EATING BREAKFAST TOLERATING WELL WILL MONITER
--- NOTE | 2016-06-16 15:47 | NUR ---
PT HAS HAD AN UNEVENTFUL DAY. NO SIGNS OF DISCOMFORT OR DISTRESS. STABLE CONDITION OBSERVED.
--- NOTE | 2016-06-16 19:50 | NUR ---
PT. IN BATHROOM NEEDING ASSISTANCE TO TRANSFER FROM W/C TO COMMODE. TRANSFERRED WITH MOD ASSISTANCE. REMOVED PT'S SOIDED BRIEF AND SCRUB PANTS FOR THE NIGHT. EXPLAINED TO PT. I WANTED HIM TO SLEEP WITHOUT BRIEF SO THAT HIS SCROTUM COULD GET MORE AIR TO IT FOR HEALING. PT. AGREED AND KNEW WHAT I WAS TALKING ABOUT. ASSISTED BACK TO W/C AFTER CLEANING PT. PT. WANTED TO SIT UP IN HIS W/C FOR AWHILE. ASSESSMENT COMPLETED. WILL GET PT. BACK INTO BED WHEN HE IS READY. CALL LIGHT WITHIN REACH AND PT. WATCHING TV I EXITED ROOM. NO VOICED NEEDS AT THIS TIME. GALVEZ TO BSD AND PT. WEARING HIS N/C O2 AT 3L/MIN WITHOUT ANY PROBLEMS.
[2016-06-16 21:00] VITALS: BP 99/73
--- NOTE | 2016-06-16 23:16 | NUR ---
PT. IN BED WITH HOB UP FOR COMFORT AND IS WATCHING TV. WAITING ON RT TO COME AND PLACE HIS BI-PAP EQUIPMENT ON. PT. EATING ORANGE SHERBRIAN PER HIS REQUEST. NO VOICED NEEDS AT THIS TIME AND HE HAS HIS CALL LIGHT WITHIN REACH.
--- NOTE | 2016-06-17 03:26 | NUR ---
PT. IN BED WITH HOB UP FOR COMFORT WITH EYES CLOSED AND RESP. DEEP AND EVEN. PT. WEARING HIS BI-PAP EQUIPMENT WITHOUT ALARMS. GALVEZ TO BSD AND PT. HAS HIS CALL LIGHT WITHIN REACH.
--- NOTE | 2016-06-17 06:05 | NUR ---
PT. AWAKENS EASILY THIS MORNING FOR ADMIN OF INSULIN AND ORAL MEDS. APPLIED RX TO SCROTUM THIS MORNING AND IT IS ALREADY LOOKING BETTER BY LEAVING THE BRIEF OFF AND HAVING AREA OPEN TO AIR, WITH JUST A SHEET OVER THE PT. PT. HAS HIS BI-PAP EQUIPMENT ON WITHOUT ANY ALARMS AND GALVEZ TO BSD AND IT WAS EMPTIED.
--- NOTE | 2016-06-17 08:15 | NUR ---
PT RESTING IN BED WITH EYES OPEN CALL LIGHT IN REACH WILL MONITER
--- NOTE | 2016-06-17 14:36 | NUR ---
PT RESTING IN BED WITH EYES OPEN CALL LIGHT IN REACH WILL MONITER
[2016-06-17 16:34] VITALS: BP 124/90
--- NOTE | 2016-06-17 19:32 | NUR ---
PT RECEIVED IN BED WITH EYES CLOSED AND CHEST RISING. CPAP IN USE. NO CONCERNS MADE KNOWN. CALL LIGHT IN REACH. WILL CONTINUE TO OBSERVE.
[2016-06-17 21:45] VITALS: BP 125/49
--- NOTE | 2016-06-17 23:11 | NUR ---
PT SITTING ON SIDE OF BED ON LAPTOP COMPUTER. NASAL CANNULA IN PLACE. RECEIVED PM MEDICATIONS PER APR AND TOLERATED WELL. NO CONCERNS MADE KNOWN. CALL LIGHT IN REACH. WILL CONTINUE TO OBSERVE.
--- NOTE | 2016-06-18 02:28 | NUR ---
PT IN BED WITH EYES CLOSED AND CHEST RISING. BIPAP IN USE. NO SIGN/SYMPTOMS OF DISTRESS NOTED. CALL LIGHT IN REACH. WILL CONTINUE TO OBSERVE.
--- NOTE | 2016-06-18 06:38 | NUR ---
PT IN BED WITH EYES CLOSED AND CHEST RISING. BIPAP IN USE AT THIS TIME. RECIEVED AM MEDICATIONS PER MAR WITHOUT DIFFICULTY. NO NEEDS OR CONCERNS MADE KNOWN AT THIS TIME. CALL LIGHT IN REACH.
[2016-06-18 08:10] VITALS: BP 131/67
--- NOTE | 2016-06-18 08:16 | NUR ---
SITTING UP IN ROOM EATING BREAKFAST CALL LIGHT IN REACH
--- NOTE | 2016-06-18 10:06 | NUR ---
PT IS RESTING IN BED WITH EYES OPEN. BIPAP IS ON. VSS. RESTING ON A 1ST STEP MATTRESS. TRAPEZE BAR ON BED. GALVEZ CATH IS PATENT AND DRAINING TO A GRAVITY BAG. CONTACT PRECAUTIONS OBSERVED FOR HEP C+. SR'S ARE UP X 3 IN BED. CALL LIGHT AND BEDSIDE TABLE ARE WITHIN EASY REACH.
--- NOTE | 2016-06-18 12:20 | NUR ---
PT ASSISTED TO AMBULATE WITH ONE [employer] FO[employer] COOK, DUE TO BEING TOLD BY MY QUALITY SPECIALIST THAT I HAD TO, HIS SPOUSE WAS COMPLAINING. PT DRESSED IN ISOLATION GEAR, AND USING 4 LEGGED WALKER HE AMBULATED TO THE ELEVATOR AND BACK TO THE GYM, AND HALF WAY BACK TO HIS ROOM. I WAS UNABLE TO SAFELY MAINTAIN CONTACT GUARD WITH THE PT I HAD TO DRAG HIS WHEELCHAIR AND A OXYGEN BOTTLE ALONG. PT STUMBLED TWICE OVER HIS PANTS LEG, BUT DID NOT FALL. HE WAS SATISFIED WITH HIS WALK. PT TAKEN BACK TO HIS ROOM FOR LUNCH.
--- NOTE | 2016-06-18 15:03 | NUR ---
PT IS SITTING IN HIS WC IN HIS ROOM VISITING WITH HIS . NO DISTRESS NOTED.
--- NOTE | 2016-06-18 17:49 | NUR ---
PT IS SITTING ON THE BACK DECK EATING SUPPER WITH HIS . NO ACUTE DISTRESS NOTED.
--- NOTE | 2016-06-18 19:18 | NUR ---
PT RECEIVED SITTING ON SIDE OF BED USING LAPTOP COMPUTER. NO CONCERNS OR NEEDS MADE KNOWN. CALL LIGHT IN REACH. WILL CONTINUE TO OBSERVE.
[2016-06-18 23:03] VITALS: BP 99/48
--- NOTE | 2016-06-19 01:18 | NUR ---
PT IN BED WITH EYES CLOSED AND CHEST RISING. BIPAP IN USE. PT REFUSED SHOWER AND STATED THAT HE WILL GET ONE IN THE MORNING WHEN NEXT SHIFT COMES IN. REMINDED THAT SHOWERS ARE SCHEDULED AND CONTINUED TO REFUSE. ASSISTED TO BED AND V/S CHECKED AT 2200 WITH B/P 80/41 ON LEFT ARM. RIGHT ARM CHECKED WITH B/P 99/45. NO SIGN/SYMPTOMS OF DISTRESS NOTED. BIPAP PLACED. B/P RECHECKED AT 0030 READING 132/55. CALL LIGHT IN REACH. WILL CONTINUE TO OBSERVE.
--- NOTE | 2016-06-19 04:30 | NUR ---
PT IN BED WITH EYES CLOSED AND CHEST RISING. NO SIGN/SYMPTOMS OF DISTRESS NOTED AT THIS TIME. CALL LIGHT IN REACH. WILL CONTINUE TO OBSERVE.
[2016-06-19 06:39] LABS: BASOPHILS 0.4 % (0-2); EOSINOPHILS 0.4 % (0-7); HEMATOCRIT 29.3 % (42.0-54.0); HEMOGLOBIN 9.1 g/dL (13.5-17.5); LYMPHOCYTES 9.7 % (15-50); MCH 28.6 pg (26.0-34.0); MCHC 31.1 g/dL (31.0-37.0); MCV 92.1 fL (80.0-100.0); MEAN PLATELET VOLUME 9.1 fL (7.4-10.4); MONOCYTES 7.8 % (2-11); NEUTROPHILS 72.7 % (40-80); RBC 3.18 10x6/uL (4.20-6.10); RDW 19.6 % (11.5-14.5); WBC 5.7 10x3/uL (4.8-10.8)
[2016-06-19 06:40] LABS: PLATELET COUNT 117 10x3/uL (130-400)
[2016-06-19 06:59] LABS: ANION GAP 5.5 mmol/L (8-16); CALCIUM 8.5 mg/dL (8.5-10.1); CARBON DIOXIDE 37.7 mmol/L (21.0-32.0); CREATININE - SERUM 1.8 mg/dL (0.6-1.3); POTASSIUM - SERUM 4.2 mmol/L (3.5-5.1)
--- NOTE | 2016-06-19 07:27 | NUR ---
PT IN BED UPON ENTRY WITH BIPAP IN USE. WETNESS NOTED TO SCRUB PANTS WITH 500ML OUTPUT IN CATHETER BAG. CATHETER STA-LOC UNCLAMPED. PANTS AND BRIEF REMOVED AND CATHETER FASTENED WITH STA-LOC. SHOWER WAS GIVEN WITH MIN ASSIST. MOD ASSIST WITH TRANSFERS TO WHEELCHAIR. URINE NOTED IN CATHETER TUBING AFTER SHOWER. PT REQUEST TO STAY IN WHEELCHAIR. NASAL CANNULA IN PLACE WITH 3LPM. NO OTHER NEEDS OR CONCERNS MADE KNOWN. CALL LIGHT IN REACH.
--- NOTE | 2016-06-19 08:15 | NUR ---
PT RESTING IN BED WITH EYES OPEN PT EATING BREAKFAST TOLERATING WELL
[2016-06-19 08:36] VITALS: BP 96/43
--- NOTE | 2016-06-19 09:00 | NUR ---
PT GALVEZ LEAKING FROM END OF CATH SITE
--- NOTE | 2016-06-19 09:30 | NUR ---
GALVEZ CATH DCD WITH TIP INTACT REINSERTED 16 HEBREW GALVEZ CATH WITHOUT ANY PROBLEMS
--- NOTE | 2016-06-19 12:42 | NUR ---
ORDER SENT TO [facility] FOR : HOSPITAL BED WITH TRAPEZE WITH MATTRESS OVERLAY, BEDSIDE COMMODE AND SCD'S.
--- NOTE | 2016-06-19 13:20 | NUR ---
PT HAS BLOOD TINGED URINE IN GALVEZ BAG WITH A FEW CLOTS PT STATED THAT HE FELT HIS GALVEZ GET PULLED ON DURING SHOWER LAST NIGHT WILL MONITER
--- NOTE | 2016-06-19 17:07 | NUR ---
PT RESTING IN BED WITH EYES OPEN IN ROOM PT EATING SUPPER CALL LIGHT IN REACH NO PROBLEMS WILL MONITER
--- NOTE | 2016-06-19 18:13 | NUR ---
PT UP IN WC, FAMILY VISITING. DENIES NEEDS.
--- NOTE | 2016-06-19 19:51 | NUR ---
pt states he is tired and ready for bed, contacted respiratory for assistance with bipap. no s/s of respiratory distress.
[2016-06-19 21:12] VITALS: BP 122/72
--- NOTE | 2016-06-19 21:20 | NUR ---
OBTAINED VERBAL ORDER FOR MEDICATION FROM PHYSICIAN, PT RESTING RESTLESS, RUBBING HIS LOWER ABDOMEN AND MOANING.
--- NOTE | 2016-06-20 01:40 | NUR ---
PT RESTING QUIETLY, REPOSITIONED IN BED. BIPAP ON.
--- NOTE | 2016-06-20 04:07 | NUR ---
RESTING QUIETLY, EYES CLOSED RESPIRATIONS REGULAR AND UNLABORED.
--- NOTE | 2016-06-20 04:11 | NUR ---
RESTING QUIETLY WITH BIPAP. NO S/S OF ACUTE DISTRESS
--- NOTE | 2016-06-20 07:30 | NUR ---
RESTING QUIETLY IN BED. CPAP IN USE. BED ALARM IN USE. CALL LIGHT IN REACH
[2016-06-20 09:23] VITALS: BP 134/57
--- NOTE | 2016-06-20 13:06 | NUR ---
Recieved call from Eryn this morning regarding isolation concerns at home with grandson who is 4 years old. I instructed to use good hand hygiene and all purpose die cleaner for daily cleaning. If patient had productive cough to use tissue and dispose in trash can using good hand hygiene by the patient. If she has further concerns please call me for questions.
--- NOTE | 2016-06-20 18:06 | NUR ---
DR CONDON CALLED AND LEFT MESSAGE REGUARDING LLE RED AND SWOLLEN AND WARM. IN ROOM WITH PT INSISTANT THAT DR CONDON ADDRESS LLE NOW.
--- NOTE | 2016-06-20 19:49 | NUR ---
PT RESTING WITH BIPAP, SPOUSE LEFT, EXPRESSED CONCERN WITH REDNESS IN LOWER LEFT EXTREMITY.
--- NOTE | 2016-06-20 20:35 | NUR ---
DR. CONDON NOTIFIED VIA TELEPHONE RE REDDENED, WARM SKIN IN LOWER LEFT EXTREMITY. TELEPHONE ORDER OBTAINED, STATED WOULD ADDRESS LENGTH OF TREATMENT LATER. MEDICATION INITIATED WITH 2100 CC. SPOUSE HAD URGED CONTACTING PHYSICIAN, ALTHOUGH SPOUSE STATED SHE THOUGHT IT APPEARED NOT TO BE READ THIS EVENING.
[2016-06-20 21:02] VITALS: BP 128/60
[2016-06-21] VITALS (11 sets, daily range): BP systolic 91–148; BP diastolic 46–67
--- NOTE | 2016-06-21 02:30 | NUR ---
RESTING QUIETLY, HOB ELEVATED, TV ON, RESPIRATIONS REGULAR AND UNLABORED.
--- NOTE | 2016-06-21 05:19 | NUR ---
CENTRAL LINE FLUSHED EASILY, BLOOD DRAWN WITHOUT DIFFICULTY. PT AWOKE, TOLERATED WELL AND STATED HE WAS PLANNING TO GO BACK TO SLEEP. PT REFUSED TO CONTINUE WEARING HIS CPAP.
[2016-06-21 06:28] LABS: BASOPHILS 0.2 % (0-2); EOSINOPHILS 0.2 % (0-7); HEMATOCRIT 26.6 % (42.0-54.0); HEMOGLOBIN 8.3 g/dL (13.5-17.5); LYMPHOCYTES 8.3 % (15-50); MCH 28.9 pg (26.0-34.0); MCHC 31.2 g/dL (31.0-37.0); MCV 92.7 fL (80.0-100.0); MONOCYTES 8.3 % (2-11); PLATELET COUNT 118 10x3/uL (130-400); RBC 2.87 10x6/uL (4.20-6.10); WBC 4.4 10x3/uL (4.8-10.8)
[2016-06-21 06:50] LABS: ANION GAP 6.9 mmol/L (8-16); CALCIUM 8.2 mg/dL (8.5-10.1); CARBON DIOXIDE 37.2 mmol/L (21.0-32.0); CREATININE - SERUM 1.7 mg/dL (0.6-1.3); POTASSIUM - SERUM 4.1 mmol/L (3.5-5.1)
--- NOTE | 2016-06-21 07:30 | NUR ---
RESTING QUIETLY IN BED CPAP IN PLACE. AIR MATTRESS IN USE, CALL LIGHT IN REACH BED ALARM IN USE
--- NOTE | 2016-06-21 12:13 | NUR ---
VISITING WITH IN ROOM.
--- NOTE | 2016-06-21 13:20 | NUR ---
Nutrition Follow Up: Pt reported that his appetite is great and he loves all the food here. Chart reviewed. Pt is eating 100% meal avg on a diabetic diet with 1500 ml FR. No new wt to assess. +BM 06/17/16. Labs and meds reviewed. Pt with excellent po intake. Rec continue current diet. RD following.
--- NOTE | 2016-06-21 16:55 | NUR ---
CARE TEAM MEETING: PATIENT AND SPOUSE ATTENDED MEETING. PLANS ARE FOR PATIENT TO DISCHARGE HOME ON 06/23/16. WILL CONTINUE TO FOLLOW WITH PATIENT AND WILL ASSIST WITH DISCHARGE NEEDS
--- NOTE | 2016-06-21 18:02 | NUR ---
SITTING ON SIDE OF BED EATING SUPPER. BLOOD INFUSING ORDERED. WEARS CPAP WHEN SLEEPING AND NAPPING. LLE STILL RED WARM AND SWOLLEN TO 3+. CALL LIGHT IN REACH
--- NOTE | 2016-06-21 19:33 | NUR ---
PT RESTING QUIETLY IN ROOM, RESPIRATIONS REGULAR AND UNLABORED, NO S/S OF ACUTE DISTRESS.
--- NOTE | 2016-06-21 23:40 | NUR ---
repositioned pt, pt mod assist for standing position from bed, readjusted air mattress, pt min assist with bed positioning. pt conversive. no s/s of acute distress. notified rt regaridng bipap
--- NOTE | 2016-06-22 | NUR ---
PT IN BED WITH HOB UP FOR COMFORT. WATCHING TV. 02 @ 3L VIA N/C. BED IN LOWEST POSITION AND CALL LIGHT WITHIN REACH.
--- NOTE | 2016-06-22 01:25 | NUR ---
pt resting with eyes closed, respirations regular and unlabored, bipap mask on.
--- NOTE | 2016-06-22 04:07 | NUR ---
PT AWOKE STATING HE FELT A BURNING SENSATION COMING FROM THE SCROTOM SUPPORT BELT, ELASTIC WAS TIGHT, CUT OFF PER PATIENTS REQUEST.
[2016-06-22 06:25] LABS: BASOPHILS 0.3 % (0-2); EOSINOPHILS 0.8 % (0-7); HEMATOCRIT 27.7 % (42.0-54.0); HEMOGLOBIN 8.9 g/dL (13.5-17.5); IMMATURE GRANULOCYTES 6.5 % (0-5); LYMPHOCYTES 10.4 % (15-50); MCH 29.4 pg (26.0-34.0); MCHC 32.1 g/dL (31.0-37.0); MCV 91.4 fL (80.0-100.0); MEAN PLATELET VOLUME 8.6 fL (7.4-10.4); PLATELET COUNT 112 10x3/uL (130-400); RBC 3.03 10x6/uL (4.20-6.10); RDW 19.2 % (11.5-14.5); WBC 3.9 10x3/uL (4.8-10.8)
[2016-06-22 06:44] LABS: ANION GAP 6.8 mmol/L (8-16); CALCIUM 8.3 mg/dL (8.5-10.1); CARBON DIOXIDE 35.3 mmol/L (21.0-32.0); CREATININE - SERUM 2.1 mg/dL (0.6-1.3); POTASSIUM - SERUM 4.1 mmol/L (3.5-5.1)
--- NOTE | 2016-06-22 06:57 | NUR ---
DC'D GALVEZ CATH, TOLERATED WELL.
--- NOTE | 2016-06-22 08:15 | NUR ---
PT RESTING IN BED WITH EYES OPEN CALL LIGHT IN REACH NO PROBLEMS WILL MONITER
[2016-06-22 09:41] VITALS: BP 117/46
--- NOTE | 2016-06-22 10:38 | NUR ---
PT SITTING UP IN WC READING PAPER, DENIES NEEDS.
--- NOTE | 2016-06-22 18:15 | NUR ---
PT UP IN WHEELCHAIR IN ROOM WITH CALL LIGHT IN REACH NO PROBLEMS WILL MONITER
--- NOTE | 2016-06-22 20:00 | NUR ---
PT IN W/C. WATCHING TV. ALERT & ORIENTED. RIGHT SUBCLAVIAN TRIPLE LUMEN, BLOOD DRAW BACK AND FLUSHES EASILY. LAST BM 06/22/16. D/C HOME 06/23/16. CONTACT ISOLATION. BIPAP WHEN SLEEPING. 02 @ 3L VIA N/C. FSBS ACHS. MOD. ASSIST. CALL LIGHT WITHIN REACH.
[2016-06-22 22:11] VITALS: BP 115/48
--- NOTE | 2016-06-23 | NUR ---
PT IN BED WITH HOB UP FOR COMFORT. WATCHING TV. 02 @ 3L VIA N/C. BED IN LOWEST POSITION AND CALL LIGHT WITHIN REACH.
--- NOTE | 2016-06-23 04:10 | NUR ---
RESTING IN BED, EYES CLOSED. NO DISTRESS NOTED.
--- NOTE | 2016-06-23 08:12 | NUR ---
SITTING UP EATING BREAKFAST CALL LIGHT IN REACH
--- NOTE | 2016-06-23 08:28 | NUR ---
PT RESTING IN BED WITH EYES OPEN CALL LIGHT IN REACH NO PROBLEMS WILL MONITER
[2016-06-23 08:58] VITALS: BP 106/42
--- NOTE | 2016-06-23 15:08 | NUR ---
PATIENT DISCHARGING HOME WITH SPOUSE. [facility] WILL FOLLOW WITH PATIENT AT HOME.[facility] WILL DELIVER BED WITH ANDRE MORALES,OVERLAY FOR MATTRESS. DR. CORCORAN 06/29/16 @ 9:40, DR. HALL 08/10/16 @ 10:20. SCRIPT GIVEN FOR PORTABLE O2. PATIENT CHOICE FORM FOR HOME HEALTH AND [facility] FORM SIGNED, EXPLAINED AND FILED IN CHART.
--- NOTE | 2016-06-23 16:20 | NUR ---
PT DISCHARGED TO HOME VIA WHEELCHAIR WITH PT DISCHARGE SUMMARY AND MEDS REVIEWED WITH PT TOLERATED WELL
== END 2016-06-23 17:22 | disposition home health service (06) | DRG 64 ==
LOC: D.REHAB 09:30
PROVIDERS: Family Medicine; ADMIT Emergency Medicine
DX: I63.9 Cerebral infarction, unspecified (principal); J18.9 Pneumonia, unspecified organism; J96.21 Acute and chronic respiratory failure with hypoxia; G93.41 Metabolic encephalopathy; I50.20 Unspecified systolic (congestive) heart failure; J44.1 Chronic obstructive pulmonary disease with (acute) exacerbation; E87.0 Hyperosmolality and hypernatremia; I13.0 Hypertensive heart and chronic kidney disease with heart failure and stage 1 through stage 4 chronic kidney disease, or unspecified chronic kidney disease; Z94.0 Kidney transplant status; E11.40 Type 2 diabetes mellitus with diabetic neuropathy, unspecified; G47.33 Obstructive sleep apnea (adult) (pediatric); I25.10 Atherosclerotic heart disease of native coronary artery without angina pectoris; K21.9 Gastro-esophageal reflux disease without esophagitis; E11.21 Type 2 diabetes mellitus with diabetic nephropathy; N18.9 Chronic kidney disease, unspecified

== ENCOUNTER → 2016-06-27 19:25 | Outpatient (CLI) | payer MEDICARE, OTHER ==
[2016-06-08 10:41] VITALS: BMI 29.5
[~2016-06-27 19:25] MED LIST changes: +BUMETANIDE0.5 MG PO
[2016-06-27 20:02] LABS: BASOPHILS 0.2 % (0-2); EOSINOPHILS 0.4 % (0-7); HEMATOCRIT 26.9 % (42.0-54.0); HEMOGLOBIN 8.1 g/dL (13.5-17.5); LYMPHOCYTES 10.4 % (15-50); MCH 28.9 pg (26.0-34.0); MCHC 30.1 g/dL (31.0-37.0); MCV 96.1 fL (80.0-100.0); MONOCYTES 7.5 % (2-11); NEUTROPHILS 79.5 % (40-80); RDW 19.9 % (11.5-14.5); WBC 5.5 10x3/uL (4.8-10.8)
[2016-06-27 20:11] LABS: PLATELET COUNT 248 10x3/uL (130-400)
[2016-06-27 20:23] LABS: ALBUMIN 2.9 g/dL (3.4-5.0); ANION GAP 13.3 mmol/L (8-16); BILIRUBIN - TOTAL 0.49 mg/dL (0.2-1.3); CALCIUM 8.8 mg/dL (8.5-10.1); CARBON DIOXIDE 29.4 mmol/L (21.0-32.0); CREATININE - SERUM 2.1 mg/dL (0.6-1.3); POTASSIUM - SERUM 4.7 mmol/L (3.5-5.1)
[2016-06-27 20:27] LABS: PROTEIN - SERUM 7.8 g/dL (6.4-8.2)
== END | disposition home or self-care (01) ==
LOC: D.LABREF 19:25
PROVIDERS: Family Medicine
DX: I69.354 Hemiplegia and hemiparesis following cerebral infarction affecting left non-dominant side (principal); E11.40 Type 2 diabetes mellitus with diabetic neuropathy, unspecified; I11.0 Hypertensive heart disease with heart failure

== ENCOUNTER → 2016-07-06 19:53 | Outpatient (CLI) | payer MEDICARE, OTHER ==
[2016-06-08 10:41] VITALS: BMI 29.5
[2016-07-06 20:04] LABS: HEMATOCRIT 31.1 % (42.0-54.0); HEMOGLOBIN 9.5 g/dL (13.5-17.5); MCH 29.5 pg (26.0-34.0); MCHC 30.5 g/dL (31.0-37.0); MCV 96.6 fL (80.0-100.0); MEAN PLATELET VOLUME 8.9 fL (7.4-10.4); RBC 3.22 10x6/uL (4.20-6.10); RDW 20.5 % (11.5-14.5); WBC 6.1 10x3/uL (4.8-10.8)
[2016-07-06 20:06] LABS: PLATELET COUNT 315 10x3/uL (130-400)
[2016-07-06 20:12] LABS: ANION GAP 13.6 mmol/L (8-16); CALCIUM 8.9 mg/dL (8.5-10.1); CARBON DIOXIDE 25.9 mmol/L (21.0-32.0); CREATININE - SERUM 1.7 mg/dL (0.6-1.3); POTASSIUM - SERUM 4.5 mmol/L (3.5-5.1)
[2016-07-06 20:26] LABS: ANISOCYTOSIS 1+; LYMPHOCYTES 10 % (15-50); MONOCYTES 3 % (2-11); NEUTROPHILS 86 % (40-80); PLATELET ESTIMATE NORMAL; POIKILOCYTOSIS 1+; POLYCHROMASIA OCC
[2016-07-06 20:27] LABS: ELLIPTOCYTES OCC
== END | disposition home or self-care (01) ==
LOC: D.LABREF 19:53
PROVIDERS: Family Medicine
DX: I69.354 Hemiplegia and hemiparesis following cerebral infarction affecting left non-dominant side (principal); J44.9 Chronic obstructive pulmonary disease, unspecified; I11.0 Hypertensive heart disease with heart failure; I50.22 Chronic systolic (congestive) heart failure

== ENCOUNTER 2016-07-08 14:58 | Emergency (ER) | payer MEDICARE, OTHER ==
[2016-06-08 10:41] VITALS: BMI 29.5
[2016-07-08 16:36] LABS: BASOPHILS 0.2 % (0-2); EOSINOPHILS 0.9 % (0-7); HEMATOCRIT 30.7 % (42.0-54.0); HEMOGLOBIN 9.3 g/dL (13.5-17.5); LYMPHOCYTES 10.3 % (15-50); MCH 29.1 pg (26.0-34.0); MCHC 30.3 g/dL (31.0-37.0); MCV 95.9 fL (80.0-100.0); MEAN PLATELET VOLUME 8.3 fL (7.4-10.4); MONOCYTES 6.6 % (2-11); PLATELET COUNT 279 10x3/uL (130-400); RDW 19.9 % (11.5-14.5); WBC 5.6 10x3/uL (4.8-10.8)
[2016-07-08 16:51] LABS: ALBUMIN 2.8 g/dL (3.4-5.0); BILIRUBIN - TOTAL 0.31 mg/dL (0.2-1.3); CALCIUM 8.8 mg/dL (8.5-10.1); CARBON DIOXIDE 29.2 mmol/L (21.0-32.0); CREATININE - SERUM 1.5 mg/dL (0.6-1.3); POTASSIUM - SERUM 4.2 mmol/L (3.5-5.1); PROTEIN - SERUM 6.7 g/dL (6.4-8.2)
== END 2016-07-08 21:35 | disposition home or self-care (01) ==
LOC: D.ER 14:58
PROVIDERS: Physician Assistant
DX: R07.81 Pleurodynia (principal); M54.6 Pain in thoracic spine; R10.32 Left lower quadrant pain; R10.31 Right lower quadrant pain; D64.9 Anemia, unspecified; I50.9 Heart failure, unspecified; J44.9 Chronic obstructive pulmonary disease, unspecified; I12.9 Hypertensive chronic kidney disease with stage 1 through stage 4 chronic kidney disease, or unspecified chronic kidney disease; N18.9 Chronic kidney disease, unspecified; S32.039A Unspecified fracture of third lumbar vertebra, initial encounter for closed fracture; W19.XXXA Unspecified fall, initial encounter; Y93.89 Activity, other specified; Y92.89 Other specified places as the place of occurrence of the external cause